=== PATIENT | male | born 1955 | race Caucasian/White ===

== ENCOUNTER 2017-06-02 16:45 | Observation (INO) | payer MEDICARE, MEDICAID ==
[2017-06-02 16:55] VITALS: BMI 26.8
--- NOTE | 2017-06-02 17:00 | C.PDOC ---
History Of Present Illness Patient is a 61 y/o M with hx of DM, HTN, cath yesterday at [place] where "I was cleaned out", presenting with weakness. Patient reports that at 1pm, he had 5 minutes of L sided arm weakness, L sided facial droop and aphasia. Symptoms resolved and he presented to ED at 4:45 approximately with no deficit. Complaining of chest pain. PMD: Mery Avalos Time Seen by Provider: 06/02/17 16:54 History Per: Patient History/Exam Limitations: no limitations Onset/Duration Of Symptoms: Hrs Current Symptoms Are (Timing): Still Present Past Medical History Reviewed: Historical Data, Nursing Documentation, Vital Signs Vital Signs: Last Vital Signs Temp 98.1 F 06/02/17 16:50 Pulse 87 06/02/17 19:56 Resp 16 06/02/17 19:56 BP 164/81 H 06/02/17 19:56 Pulse Ox 100 06/02/17 19:56 - Medical History PMH: Anemia, CAD, Diabetes, Gastritis, HTN, Hypothyroidism, Chronic Kidney Disease Surgical History: No Surg Hx Family History: States: No Known Family Hx - Social History Hx Tobacco Use: No Hx Alcohol Use: No Hx Substance Use: No - Immunization History Hx Influenza Vaccination: Yes Hx Pneumococcal Vaccination: Yes Review Of Systems Except As Marked, All Systems Reviewed And Found Negative. Cardiovascular: Positive for: Chest Pain Neurological: Positive for: Weakness (arm), Change in Speech (Aphasia), Other ( Left sided facial droop) Physical Exam - Physical Exam Appears: Well, Non-toxic Skin: Warm, Dry, No Rash Head: Atraumatic, Normacephalic Eye(s): bilateral: Normal Inspection (No nystagmus) Oral Mucosa: Moist Neck: Normal ROM, Supple Cardiovascular: Rhythm Regular Respiratory: Normal Breath Sounds, No Rales, No Rhonchi, No Wheezing Gastrointestinal/Abdominal: Soft, No Tenderness, No Guarding, No Rebound Extremity: Normal ROM, Capillary Refill (<2 seconds) Neurological/Psych: Oriented x3, Normal Cognition, Normal Cranial Nerves, Cerebellar Signs, Normal Motor, Normal Sensation Gait: Steady ED Course And Treatment - Laboratory Results Result Diagrams: 06/02/17 17:08 06/02/17 17:08 O2 Sat by Pulse Oximetry: 100 (RA) Pulse Ox Interpretation: Normal NIHSS Stroke Scale - Date/Time Evaluation Performed Date Performed: 06/02/17 Time Performed: 17:00 When Was NIHSS Performed: Baseline - How Severe is the Stroke Level of Consciousness: 0=Alert LOC to Questions: 0=Both comments correct LOC to commands: 0=Obeys both correctly Best Gaze: 0=Normal Visual: 0=No visual loss Facial: 0=Normal Motor Arm - Left: 0=No drift Motor Arm - Right: 0=No drift Motor Leg - Left: 0=No drift Motor Leg - Right: 0=No drift Limb Ataxia: 0=Absent Sensory: 0=Normal Best Language: 0=No aphasia Dysarthia: 0=Normal articulation Extinction & Inattention (Neglect): 1=Partial neglect (mild beatriz-attention) Score: 1 rTPA Inclusion/Exclusion - Refusal of Treatment Patient Refused Treatment: No - Inclusion Criteria for Altepase Patient is 18 years or Older: Yes The Clinical Diagnosis of Ischemic Stroke That is Causing a Potentially Disabling Neurological Deficit: No Time of Onset is Well Established to be Less Than 270 Minute Before Treatment Would Begin: No Risk/Benefit Discussed With Patient/Family Member Present: No Medical Decision Making Medical Decision Making: Patient neurologically intact on arrival. EKG shows NSR at 80bpm with st depressions in v4-v6. Code stroke called. Spoke to Dr. Pablo. Patient not a candidate due to no current deficit and length of time >3 hours since last known well time. Recommends aspirin. Agrees with cta @1812- Spoke to Dr. Pablo requesting Plavix and Aspirin to be given to patient and MRI in AM Spoke to hospitalist,. Dr. Hendrix and he is also requesting vq scan which was ordered. Lovenox x 1 given as VQ cannot be done till morning. Patient now chest pain free. Trop x 1 negative. Radiologist called and reports MRI shows lacunar infarct to R occipital measuring 5mm. Neurology aware. Disposition - Disposition Disposition: HOSPITALIZED Disposition Time: 18:14 Condition: FAIR - Clinical Impression Clinical Impression: Chest pain, TIA (transient ischemic attack), Stroke - Scribe Statement The provider has reviewed the documentation as recorded by the Scribe Karen Maciel All medical record entries made by the Scribe were at my direction and personally dictated by me. I have reviewed the chart and agree that the record accurately reflects my personal performance of the history, physical exam, medical decision making, and the department course for this patient. I have also personally directed, reviewed, and agree with the discharge instructions and disposition.
[2017-06-02] MEDS ORDERED: Iodixanol 320 MG/ML 100 ML BOTTLE IV ONE (17:03)
[2017-06-02 17:13] LABS: BASO % 0.3 % (0.0-2.0); EOS % 0.4 % (0.0-4.0); HEMOGLOBIN 12.1 g/dL (12.0-18.0); LYMPH # 0.6 K/uL (1.0-4.3); LYMPH % 10.2 % (20.0-40.0); MEAN CELL VOLUME 93.3 fL (80.0-94.0); MEAN CORPUSCULAR HEMOGLOBIN 31.4 pg (27.0-31.0); MEAN CORPUSCULAR HGB CONC 33.6 g/dL (33.0-37.0); MEAN PLATELET VOLUME 8.9 fL (7.2-11.7); MONO # 0.6 K/uL (0.0-0.8); MONO % 9.8 % (0.0-10.0); NEUT # 4.8 K/uL (1.8-7.0); NEUT % 79.3 % (50.0-75.0); NRBC % 0.1 % (0.0-2.0); RBC 3.87 Mil/uL (4.40-5.90); RED CELL DISTRIBUTION WIDTH 13.3 % (11.5-14.5); WHITE BLOOD COUNT 6.1 K/uL (4.8-10.8)
[2017-06-02 17:24] LABS: INR 1.1; PROTHROMBIN TIME 12.1 SECONDS (9.7-12.2)
--- NOTE | 2017-06-02 17:27 | CT ---
PROCEDURE: CT HEAD WITHOUT CONTRAST. HISTORY: Code Stroke COMPARISON: None available. TECHNIQUE: Axial computed tomography images were obtained through the head/brain without intravenous contrast. Radiation dose: Total exam DLP = 761.65 mGy-cm. This CT exam was performed using one or more of the following dose reduction techniques: Automated exposure control, adjustment of the mA and/or kV according to patient size, and/or use of iterative reconstruction technique. FINDINGS: HEMORRHAGE: No intracranial hemorrhage. BRAIN: No mass effect or edema. Cortical atrophy, periventricular small vessel disease. VENTRICLES: Unremarkable. No hydrocephalus. CALVARIUM: Unremarkable. PARANASAL SINUSES: Unremarkable as visualized. No significant inflammatory changes. MASTOID AIR CELLS: Unremarkable as visualized. No inflammatory changes. OTHER FINDINGS: None. IMPRESSION: No acute intracranial abnormalities. No significant findings to account for the clinical presentation. Code stroke protocol: Study completed 17:09 Results conveyed verbally at 17:23 Interpretation finalized and available for review 17:24
[2017-06-02 17:28] LABS: HDL CHOLESTEROL 45 mg/dL (30-70)
[2017-06-02 17:30] LABS: ALB/GLOB RATIO 1.4 (1.0-2.1); ALBUMIN 4.1 g/dL (3.5-5.0); CALCIUM 8.9 mg/dl (8.6-10.4)
[2017-06-02] MEDS: Sodium Chloride 0.9% 1,000 ML IV SCH (17:31)
[2017-06-02] MEDS ORDERED: Sodium Chloride 0.9% 1,000 ML ONE (17:31)
[2017-06-02 17:39] LABS: LDL CHOLESTEROL 80 mg/dL (0-129)
--- NOTE | 2017-06-02 18:02 | CT ---
PROCEDURE: CTA of the neck and brain dated 06/02/2017. HISTORY: Weakness and aphasia, left-side common CT yesterday. COMPARISON: Comparison made with concurrent CT scan of the brain. TECHNIQUE: Contiguous helical/transaxial images of the neck were obtained from the level of the skull-base to the superior mediastinum in the arteriographic phase of enhancement. Coronal and sagittal reformats or also generated. IV contrast dose: 100 cc Visipaque 320 Radiation Dose - DLP: 600.12 mGy-cm This CT exam was performed using one or more of the following dose reduction techniques: Automated exposure control, adjustment of the mA and/or kV according to patient size, and/or use of iterative reconstruction technique. . FINDINGS: The aortic arch is widely patent with some very minimal partially calcified plaque along the left lateral and inferior margins of the transverse portion of the aortic arch. The common carotid arteries and bifurcations widely patent with no evidence of dissection, occlusion or significant stenosis There is some very minor plaque changes seen along the proximal margin of the left internal carotid artery without significant stenosis. The remaining distal internal carotid arteries including the P2 segments widely patent. There are partially calcified atherosclerotic plaque changes seen along the cavernous carotid segments that appear to result in irregular narrowing carotid of the left cavernous carotid artery more so than right, however no evidence of complete occlusion The supraclinoid carotid arteries patent as are the proximal middle and anterior cerebral arteries. The distal on branches of the anterior middle cerebral arteries are relatively symmetric. The vertebral arteries are symmetric throughout with no evidence of occlusion dissection or significant stenosis. The basilar artery and posterior cerebral arteries are patent as well. . The proximal posterior cerebral arteries are patent. Note the visualized portions of the posterior cerebral arteries appear patent as well. No evidence of large aneurysm nor vascular malformation. IMPRESSION: No evidence of occlusion of the common carotid arteries, carotid bifurcations or internal carotid arteries. . Partially calcified atherosclerotic plaque changes both cavernous carotid arteries result in mild irregular narrowing of the left cavernous carotid artery more so than right. . The posterior circulation is also patent as described above. No evidence of large aneurysm nor vascular malformation.
--- NOTE | 2017-06-02 18:26 | RAD ---
HISTORY: Code Stroke COMPARISON: 12/25/2012 FINDINGS: LUNGS: No active pulmonary disease. PLEURA: No significant pleural effusion identified, no pneumothorax apparent. CARDIOVASCULAR: No radiographic findings to suggest acute or significant cardiovascular disease. OSSEOUS STRUCTURES: No significant abnormalities. VISUALIZED UPPER ABDOMEN: Normal. OTHER FINDINGS: None. IMPRESSION: No active disease. No significant interval change compared to the prior examination(s).
[2017-06-02] MEDS ORDERED: Enoxaparin 80 mg Syringe SC STA (19:10)
[2017-06-02] MEDS ORDERED: Enoxaparin 80 mg Syringe ONE (19:18)
--- NOTE | 2017-06-03 00:40 | CP.PCM.HP ---
<Maykel Cuevas - Last Filed: 06/03/17 04:03> History of Present Illness - History of Present Illness History of Present Illness: 61 year old male with history of DM, HTN, HLD, ESRD s/p left kidney transplant, and left eye blindness who presented to the ED for an episode of generalized numbness and weakness beginning earlier in the afternoon. He stated that at 1pm he developed a headache at the top and back of his head along with paresthesias in his bilateral arms and face. He described the sensation as feeling though his arms and face had "gone to sleep." He says he was able to walk at the time but that he felt unsteady and had some weakness in his legs. His sister then brought him to the hospital. He states that he became very anxious during this episode and felt he was "going crazy." He states that he experienced associated SOB and palpitations. He reported that all of this had resolved soon after he arrived at the hospital and that he was no longer experiencing any of these symptoms during questioning at bedside. Yesterday, he had a cardiac cath done through his R radial artery and R femoral artery. Patient was told that his coronaries were clean and no stents were placed. He experienced no complications and stated that he had gone home feeling well afterwards. He follows up with Dr. Boothe (Nephro) every 2 month. He denies paralysis, CP, cough, fever, chills, diarrhea, constipation, bowel and bladder incontinence, syncope. Indonesian video financial writer: Eladia Méndez [id number] PMD: Sera Avalos: Tl, Cardio: [facility] PMH: DM, HTN, HLD Surg: Left kidney transplant 4 years ago; eye surgery (unspecified) FMH: DM in brother (62 y/o); unspecified lung disease in mother (81 y/o) Social: Currently denies tobacco use though 40 years ago he reports to have smoked several cigarettes daily for several years; reports to drink 1-2 beers on Fridays and Saturdays; denies other drug use Allergies: NKDA Home meds: Unable to provide at this moment as he left his home in a hurry. Will have a family member to bring it in the morning Present on Admission - Present on Admission Any Indicators Present on Admission: No Review of Systems - Constitutional Constitutional: As Per HPI, Headache, Weakness. absent: Anorexia, Chills, Fatigue - EENT Eyes: As Per HPI. absent: Blind Spots, Discharge, Irritation Ears: As Per HPI. absent: Dizziness Nose/Mouth/Throat: As Per HPI. absent: Epistaxis, Nasal Obstruction, Nasal Trauma - Cardiovascular Cardiovascular: As Per HPI. absent: Chest Pain, Diaphoresis, Edema, Leg Edema - Respiratory Respiratory: As Per HPI. absent: Cough, Wheezing - Gastrointestinal Gastrointestinal: As Per HPI. absent: Abdominal Pain, Nausea, Vomiting - Genitourinary Genitourinary: As Per HPI. absent: Change in Urinary Stream, Dysuria - Musculoskeletal Musculoskeletal: As Per HPI. absent: Arthralgias, Deformity - Integumentary Integumentary: As Per HPI. absent: Acne, Alopecia - Neurological Neurological: As Per HPI, Numbness, Headaches. absent: Syncope - Psychiatric Psychiatric: As Per HPI, Anxiety - Endocrine Endocrine: As Per HPI. absent: Change in Body Appearance - Hematologic/Lymphatic Hematologic: As Per HPI Past Patient History - Past Medical History & Family History Past Medical History?: Yes - Past Social History Smoking Status: Former Smoker - CARDIAC Hx Hypertension: Yes - PULMONARY Hx Respiratory Disorders: No - NEUROLOGICAL Hx Neurological Disorder: No - HEENT Hx Blind: Yes (LEFT EYE DIABETIC RETINOPATHY) - RENAL Hx Chronic Kidney Disease: Yes - ENDOCRINE/METABOLIC Hx Hypothyroidism: Yes - HEMATOLOGICAL/ONCOLOGICAL Hx Anemia: Yes - INTEGUMENTARY Hx Dermatological Problems: No - MUSCULOSKELETAL/RHEUMATOLOGICAL Hx Musculoskeletal Disorders: No - GASTROINTESTINAL Hx Gastritis: Yes - GENITOURINARY/GYNECOLOGICAL Hx Genitourinary Disorders: No - PSYCHIATRIC Hx Substance Use: No - SURGICAL HISTORY Hx Surgeries: Yes Hx Kidney Transplant: Yes (04/01/13) Hx Vascular Surgery: Yes (LEFT ARM A/V FISTULA) - ANESTHESIA Hx Anesthesia: Yes Hx Anesthesia Reactions: No Hx Malignant Hyperthermia: No Meds Allergies/Adverse Reactions: Allergies Allergy/AdvReac Type Severity Reaction Status Date / Time No Known Allergies Allergy Verified 03/18/15 08:48 Physical Exam - Constitutional Appears: Non-toxic, No Acute Distress - Head Exam Head Exam: ATRAUMATIC, NORMOCEPHALIC - Eye Exam Eye Exam: Normal appearance, PERRL. absent: Nystagmus - ENT Exam ENT Exam: Mucous Membranes Moist - Neck Exam Neck exam: Positive for: Normal Inspection - Respiratory Exam Respiratory Exam: Clear to Auscultation Bilateral, NORMAL BREATHING PATTERN. absent: Wheezes, Respiratory Distress - Cardiovascular Exam Cardiovascular Exam: REGULAR RHYTHM, +S1, +S2 - GI/Abdominal Exam GI & Abdominal Exam: Normal Bowel Sounds, Soft. absent: Tenderness - Extremities Exam Extremities exam: Positive for: normal capillary refill, normal inspection, pedal pulses present Additional comments: Right wrist and right groin ecchymosis Left arm surgical scar from AVF - Neurological Exam Neurological exam: Alert, CN II-XII Intact, Oriented x3 Additional comments: NIHSS score 0 - Expanded Neurological Exam Expanded Patient oriented to: person, place, time - Psychiatric Exam Psychiatric exam: Normal Affect, Normal Mood - Skin Skin Exam: Dry, Warm Results - Vital Signs Recent Vital Signs: Last Vital Signs Temp 98.7 F 06/03/17 00:35 Pulse 82 06/03/17 00:35 Resp 18 06/03/17 00:35 BP 158/80 H 06/03/17 00:35 Pulse Ox 97 06/03/17 00:35 - Labs Result Diagrams: 06/02/17 17:08 06/02/17 17:08 Labs: Laboratory Results - last 24 hr 06/02/17 06/02/17 06/02/17 16:50 17:08 17:08 WBC 6.1 RBC 3.87 L Hgb 12.1 Hct 36.1 MCV 93.3 D MCH 31.4 H MCHC 33.6 RDW 13.3 Plt Count 164 MPV 8.9 Neut % (Auto) 79.3 H Lymph % (Auto) 10.2 L [place] % (Auto) 9.8 Eos % (Auto) 0.4 Baso % (Auto) 0.3 Neut # (Auto) 4.8 Lymph # (Auto) 0.6 L [place] # (Auto) 0.6 Eos # (Auto) 0.0 Baso # (Auto) 0.0 PT 12.1 INR 1.1 APTT 29 Sodium Potassium Chloride Carbon Dioxide Anion Gap BUN Creatinine Est GFR ( Amer) Est GFR (Non-Af Amer) POC Glucose (mg/dL) 115 H Random Glucose Hemoglobin A1c Calcium Total Bilirubin AST ALT Alkaline Phosphatase Troponin I Total Protein Albumin Globulin Albumin/Globulin Ratio Triglycerides Cholesterol LDL Cholesterol Direct HDL Cholesterol Blood Type Antibody Screen 04/19/18 04/19/18 04/19/18 17:08 17:08 17:08 WBC RBC Hgb Hct MCV MCH MCHC RDW Plt Count MPV Neut % (Auto) Lymph % (Auto) [place] % (Auto) Eos % (Auto) Baso % (Auto) Neut # (Auto) Lymph # (Auto) [place] # (Auto) Eos # (Auto) Baso # (Auto) PT INR APTT Sodium 139 Potassium 4.4 Chloride 100 Carbon Dioxide 24 Anion Gap 19 BUN 28 H Creatinine 1.9 H Est GFR ( Amer) 44 Est GFR (Non-Af Amer) 36 POC Glucose (mg/dL) Random Glucose 113 H Hemoglobin A1c Calcium 8.9 Total Bilirubin 0.5 AST 27 ALT 28 Alkaline Phosphatase 36 L Troponin I < 0.0120 Total Protein 7.0 Albumin 4.1 Globulin 2.9 Albumin/Globulin Ratio 1.4 Triglycerides 176 H Cholesterol 157 LDL Cholesterol Direct 80 HDL Cholesterol 45 Blood Type O POSITIVE Antibody Screen Negative 06/02/17 06/02/17 17:08 21:26 WBC RBC Hgb Hct MCV MCH MCHC RDW Plt Count MPV Neut % (Auto) Lymph % (Auto) [place] % (Auto) Eos % (Auto) Baso % (Auto) Neut # (Auto) Lymph # (Auto) [place] # (Auto) Eos # (Auto) Baso # (Auto) PT INR APTT Sodium Potassium Chloride Carbon Dioxide Anion Gap BUN Creatinine Est GFR ( Amer) Est GFR (Non-Af Amer) POC Glucose (mg/dL) 181 H Random Glucose Hemoglobin A1c 6.9 H Calcium Total Bilirubin AST ALT Alkaline Phosphatase Troponin I Total Protein Albumin Globulin Albumin/Globulin Ratio Triglycerides Cholesterol LDL Cholesterol Direct HDL Cholesterol Blood Type Antibody Screen Assessment & Plan - Assessment and Plan (Free Text) Assessment: TIA -No neurological deficits on exam -CT head shows no acute intracranial abnormalities -CTA of neck shows no evidence of occlusion of the common carotid arteries, carotid bifurcations or internal carotid arteries -Pending brain MRI official results -Troponin negative, repeat pending -EKG shows NSR @80bpm, no axis deviation, ST depression on V4 and V5, no previous EKG to compare. F/u AM EKG -Neurology consulted, Dr. Eaton help appreciated -Physical therapy ESRD s/p left kidney transplant -Patient follows up with Dr. Boothe every 2 months -Taking an immunosuppresive drug, need to confirm name/dosage -Nephrology consulted, Dr. 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 Lewis <Navid Lewis P - Last Filed: 06/03/17 06:36> Results - Vital Signs Recent Vital Signs: Last Vital Signs Temp 98.5 F 06/03/17 04:15 Pulse 82 06/03/17 04:15 Resp 20 06/03/17 04:15 BP 163/81 H 06/03/17 04:15 Pulse Ox 96 06/03/17 04:15 - Labs Result Diagrams: 06/03/17 05:55 06/02/17 17:08 Labs: Laboratory Results - last 24 hr 06/02/17 06/02/17 06/02/17 16:50 17:08 17:08 WBC 6.1 RBC 3.87 L Hgb 12.1 Hct 36.1 MCV 93.3 D MCH 31.4 H MCHC 33.6 RDW 13.3 Plt Count 164 MPV 8.9 Neut % (Auto) 79.3 H Lymph % (Auto) 10.2 L [place] % (Auto) 9.8 Eos % (Auto) 0.4 Baso % (Auto) 0.3 Neut # (Auto) 4.8 Lymph # (Auto) 0.6 L [place] # (Auto) 0.6 Eos # (Auto) 0.0 Baso # (Auto) 0.0 PT 12.1 INR 1.1 APTT 29 Sodium Potassium Chloride Carbon Dioxide Anion Gap BUN Creatinine Est GFR ( Amer) Est GFR (Non-Af Amer) POC Glucose (mg/dL) 115 H Random Glucose Hemoglobin A1c Calcium Total Bilirubin AST ALT Alkaline Phosphatase Troponin I Total Protein Albumin Globulin Albumin/Globulin Ratio Triglycerides Cholesterol LDL Cholesterol Direct HDL Cholesterol Blood Type Antibody Screen 06/02/17 06/02/17 06/02/17 17:08 17:08 17:08 WBC RBC Hgb Hct MCV MCH MCHC RDW Plt Count MPV Neut % (Auto) Lymph % (Auto) [place] % (Auto) Eos % (Auto) Baso % (Auto) Neut # (Auto) Lymph # (Auto) [place] # (Auto) Eos # (Auto) Baso # (Auto) PT INR APTT Sodium 139 Potassium 4.4 Chloride 100 Carbon Dioxide 24 Anion Gap 19 BUN 28 H Creatinine 1.9 H Est GFR ( Amer) 44 Est GFR (Non-Af Amer) 36 POC Glucose (mg/dL) Random Glucose 113 H Hemoglobin A1c Calcium 8.9 Total Bilirubin 0.5 AST 27 ALT 28 Alkaline Phosphatase 36 L Troponin I < 0.0120 Total Protein 7.0 Albumin 4.1 Globulin 2.9 Albumin/Globulin Ratio 1.4 Triglycerides 176 H Cholesterol 157 LDL Cholesterol Direct 80 HDL Cholesterol 45 Blood Type O POSITIVE Antibody Screen Negative 06/02/17 06/02/17 06/03/17 17:08 21:26 05:55 WBC 4.6 L RBC 3.89 L Hgb 12.4 Hct 36.1 MCV 93.0 MCH 31.9 H MCHC 34.3 RDW 13.3 Plt Count 151 MPV 9.4 Neut % (Auto) 68.1 Lymph % (Auto) 20.1 [place] % (Auto) 9.4 Eos % (Auto) 0.9 Baso % (Auto) 1.5 Neut # (Auto) 3.2 Lymph # (Auto) 0.9 L [place] # (Auto) 0.4 Eos # (Auto) 0.0 Baso # (Auto) 0.1 PT INR APTT Sodium Potassium Chloride Carbon Dioxide Anion Gap BUN Creatinine Est GFR ( Amer) Est GFR (Non-Af Amer) POC Glucose (mg/dL) 181 H Random Glucose Hemoglobin A1c 6.9 H Calcium Total Bilirubin AST ALT Alkaline Phosphatase Troponin I Total Protein Albumin Globulin Albumin/Globulin Ratio Triglycerides Cholesterol LDL Cholesterol Direct HDL Cholesterol Blood Type Antibody Screen Attending/Attestation - Attestation I have personally seen and examined this patient.: Yes I have fully participated in the care of the patient.: Yes I have reviewed all pertinent clinical information: Yes Notes (Text): Assessment * Patient at time of exam had no neurological symptoms or signs, no chest pain or sob. Events at home started as headache, facial numbness, anxiety, bilateral weakness in legs, which had resolved by the time in ER, unclear if neurologic pattern. Very small lacunar infarct mentioned on MRI in right occipital area will no cause the mentioned clinical symptoms. Possibility of small shower embolic not seen on CT or MRI, but completely resolved post cardiac cath (05/31) still a possibility. Patient has received CTA here. * Unclear initial events at [facility] for the cath, as done for purpose of CP, ? VT, seems 2 attempts done one in right radial other in right groin. * Patient has kid transplanted about 4 yrs on transplant meds, elevated creat noticed but don't have numbers to compare, current 1.[address] Boothe and Brenda Patel I for transplanted kidney * IDDM * Patient has received dual antiplatelet therapy, and anticoagulation Plan * Confirm his base line creat, records form [facility], Dr. Boothe, get report/records from [facility] regarding presentation/cath * IVF gentle, prevent dehydration, nephrotoxic drug patient has received radio contrast at [facility] and here * Get dosages of the meds. * Insulin lantus 22, humlog 11-23-09 (from ) *
--- NOTE | 2017-06-03 00:47 | CP.PCM.DIS ---
Provider - Provider Date of Admission: 06/02/17 18:15 Attending physician: Sabas Clements MD Hospital Course - Lab Results Lab Results: Most Recent Lab Values WBC 6.1 K/uL (4.8-10.8) 06/02/17 17:08 RBC 3.87 Mil/uL (4.40-5.90) L 06/02/17 17:08 Hgb 12.1 g/dL (12.0-18.0) 06/02/17 17:08 Hct 36.1 % (35.0-51.0) 06/02/17 17:08 MCV 93.3 fL (80.0-94.0) D 06/02/17 17:08 MCH 31.4 pg (27.0-31.0) H 06/02/17 17:08 MCHC 33.6 g/dL (33.0-37.0) 06/02/17 17:08 RDW 13.3 % (11.5-14.5) 06/02/17 17:08 Plt Count 164 K/uL (130-400) 06/02/17 17:08 MPV 8.9 fL (7.2-11.7) 06/02/17 17:08 Neut % (Auto) 79.3 % (50.0-75.0) H 06/02/17 17:08 Lymph % (Auto) 10.2 % (20.0-40.0) L 06/02/17 17:08 [place] % (Auto) 9.8 % (0.0-10.0) 06/02/17 17:08 Eos % (Auto) 0.4 % (0.0-4.0) 06/02/17 17:08 Baso % (Auto) 0.3 % (0.0-2.0) 06/02/17 17:08 Neut # (Auto) 4.8 K/uL (1.8-7.0) 06/02/17 17:08 Lymph # (Auto) 0.6 K/uL (1.0-4.3) L 06/02/17 17:08 [place] # (Auto) 0.6 K/uL (0.0-0.8) 06/02/17 17:08 Eos # (Auto) 0.0 K/uL (0.0-0.7) 06/02/17 17:08 Baso # (Auto) 0.0 K/uL (0.0-0.2) 06/02/17 17:08 PT 12.1 SECONDS (9.7-12.2) 06/02/17 17:08 INR 1.1 06/02/17 17:08 APTT 29 SECONDS (21-34) 06/02/17 17:08 Sodium 139 mmol/L (132-148) 06/02/17 17:08 Potassium 4.4 mmol/L (3.6-5.2) 06/02/17 17:08 Chloride 100 mmol/L (98-107) 06/02/17 17:08 Carbon Dioxide 24 mmol/L (22-30) 06/02/17 17:08 Anion Gap 19 (10-20) 06/02/17 17:08 BUN 28 mg/dL (9-20) H 06/02/17 17:08 Creatinine 1.9 mg/dL (0.8-1.5) H 06/02/17 17:08 Est GFR ( Amer) 44 06/02/17 17:08 Est GFR (Non-Af Amer) 36 06/02/17 17:08 POC Glucose (mg/dL) 181 mg/dL (65-110) H 06/02/17 21:26 Random Glucose 113 mg/dL (75-110) H 06/02/17 17:08 Hemoglobin A1c 6.9 % (4.2-6.5) H 06/02/17 17:08 Calcium 8.9 mg/dl (8.6-10.4) 06/02/17 17:08 Total Bilirubin 0.5 mg/dL (0.2-1.3) 06/02/17 17:08 AST 27 U/L (17-59) 06/02/17 17:08 ALT 28 U/L (21-72) 06/02/17 17:08 Alkaline Phosphatase 36 U/L (38-126) L 06/02/17 17:08 Troponin I < 0.0120 ng/mL (0.00-0.120) 06/02/17 17:08 Total Protein 7.0 g/dL (6.3-8.3) 06/02/17 17:08 Albumin 4.1 g/dL (3.5-5.0) 06/02/17 17:08 Globulin 2.9 gm/dL (2.2-3.9) 06/02/17 17:08 Albumin/Globulin Ratio 1.4 (1.0-2.1) 06/02/17 17:08 Triglycerides 176 mg/dL (0-149) H 06/02/17 17:08 Cholesterol 157 mg/dL (0-199) 06/02/17 17:08 LDL Cholesterol Direct 80 mg/dL (0-129) 06/02/17 17:08 HDL Cholesterol 45 mg/dL (30-70) 06/02/17 17:08 Blood Type O POSITIVE 06/02/17 17:08 Antibody Screen Negative 06/02/17 17:08 Discharge Plan - Follow Up Plan Condition: FAIR Disposition: HOME/ ROUTINE
[2017-06-03] MEDS: Sodium Chloride 0.9% 1,000 ML IV SCH ×2 (03:00→05:33)
[2017-06-03] MEDS ORDERED: Dextrose 50% SYRINGE Inj (50 ml) IVP PRN (04:39)
[2017-06-03] MEDS ORDERED: Glucagon Recombinant 1 mg Inj IM PRN (04:39)
[2017-06-03 06:02] LABS: BASO # 0.1 K/uL (0.0-0.2); BASO % 1.5 % (0.0-2.0); EOS % 0.9 % (0.0-4.0); HEMOGLOBIN 12.4 g/dL (12.0-18.0); LYMPH # 0.9 K/uL (1.0-4.3); LYMPH % 20.1 % (20.0-40.0); MEAN CORPUSCULAR HEMOGLOBIN 31.9 pg (27.0-31.0); MEAN CORPUSCULAR HGB CONC 34.3 g/dL (33.0-37.0); MEAN PLATELET VOLUME 9.4 fL (7.2-11.7); MONO # 0.4 K/uL (0.0-0.8); MONO % 9.4 % (0.0-10.0); NEUT # 3.2 K/uL (1.8-7.0); NEUT % 68.1 % (50.0-75.0); RBC 3.89 Mil/uL (4.40-5.90); RED CELL DISTRIBUTION WIDTH 13.3 % (11.5-14.5); WHITE BLOOD COUNT 4.6 K/uL (4.8-10.8)
[2017-06-03 06:25] LABS: CK-MB 1.38 ng/mL (0.0-3.38); TROPONIN I 0.015 ng/mL (0.00-0.120)
[2017-06-03 06:26] LABS: ALB/GLOB RATIO 1.3 (1.0-2.1); CALCIUM 8.9 mg/dl (8.6-10.4)
[2017-06-03] MEDS ORDERED: (Novolin R) Insulin Human Regular 100 units/ml vial SC SCH ×2 (07:30)
[2017-06-03] MEDS: (Novolin R) Insulin Human Regular 100 units/ml vial SC SCH ×4 (08:28→21:41)
--- NOTE | 2017-06-03 10:04 | NM ---
COMPARISON: June 02, 2017. TECHNIQUE: 6.1 mCi technetium 99-m Xe-133 Gas. 3.4 mCI technetium 99-m MAA administered intravenously. FINDINGS: VENTILATION COMPONENT: Normal. PERFUSION COMPONENT: Normal. IMPRESSION: Normal ventilation perfusion scan without evidence of pulmonary embolism.
--- NOTE | 2017-06-03 10:22 | MRI ---
PROCEDURE: MRI BRAIN WITHOUT CONTRAST HISTORY: TIA L sided weakness, now resolved COMPARISON: Comparison made with prior CT scan and CTA of the neck and brain cyst obtained earlier same day TECHNIQUE: Multiplanar, multisequence MR images of the brain were obtained without intravenous contrast enhancement. FINDINGS: HEMORRHAGE: No acute parenchymal, subarachnoid nor extra-axial hemorrhage. No evidence of hemosiderin deposition identified on gradient echo weighted sequence DWI: There is a tiny focal area of restricted diffusion in the right occipito parietal watershed zone consistent with a tiny acute infarct. BRAIN PARENCHYMA: Mild -moderate diffuse/ confluent chronic periventricular white matter ischemic changes with multiple more discrete chronic appearing lacunar type infarcts scattered about the deep and subcortical white matter as well as basal nuclei both cerebral hemispheres. Mild chronic brainstem ischemic changes are also present. No obvious parenchymal nor extra-axial mass or collection seen on this noncontrast study. Moderate generalized volume loss. VENTRICLES: No obstructive hydrocephalus. CRANIUM: No calvarial abnormalities ORBITS: Changes of bilateral cataract surgery. PARANASAL SINUSES/MASTOIDS: Mild mucosal thickening seen within the ethmoid air complex and sphenoid sinus. Small focal areas of polypoid like mucosal thickening also seen in both maxillary antra. VASCULAR SYSTEM: Visualized major vascular flow voids at skull base patent. OTHER FINDINGS: None. IMPRESSION: There is a tiny acute infarct changes in the right occipito parietal watershed zone. . Mild to moderate chronic white matter ischemic changes with scattered chronic bilateral basal nuclei and brainstem ischemic changes. . Moderate generalized volume loss
--- NOTE | 2017-06-03 11:02 | CP.PCM.CON ---
History of Present Illness - History of Present Illness History of Present Illness: 61 year old male with history of DM, HTN, HLD, ESRD s/p left kidney transplant, and left eye blindness who presented to the ED for an episode of generalized numbness and weakness beginning earlier in the afternoon. He stated that at 1pm he developed a headache at the top and back of his head along with paresthesias in his bilateral arms and face. He described the sensation as feeling though his arms and face had "gone to sleep." He says he was able to walk at the time but that he felt unsteady and had some weakness in his legs. His sister then brought him to the hospital. He states that he became very anxious during this episode and felt he was "going crazy." He states that he experienced associated SOB and palpitations. He reported that all of this had resolved soon after he arrived at the hospital and that he was no longer experiencing any of these symptoms during questioning at bedside. Yesterday, he had a cardiac cath done through his R radial artery and R femoral artery. Patient was told that his coronaries were clean and no stents were placed. He experienced no complications and stated that he had gone home feeling well afterwards. He follows up with Dr. Boothe (Nephro) every 2 month. He denies paralysis, CP, cough, fever, chills, diarrhea, constipation, bowel and bladder incontinence, syncope. MRI head showed acute cva PMD: [facility]: Tl, Cardio: [facility] PMH: DM, HTN, HLD Surg: Left kidney transplant 4 years ago; eye surgery (unspecified) FMH: DM in brother (62 y/o); unspecified lung disease in mother (81 y/o) Social: Currently denies tobacco use though 40 years ago he reports to have smoked several cigarettes daily for several years; reports to drink 1-2 beers on Fridays and Saturdays; denies other drug use Allergies: NKDA Home meds: reviewed Review of Systems - Review of Systems Systems not reviewed;Unavailable: Acuity of Condition All systems: reviewed and no additional remarkable complaints except (as per HPI ) Past Patient History - Past Medical History & Family History Past Medical History?: Yes - Past Social History Smoking Status: Former Smoker - CARDIAC Hx Hypertension: Yes - PULMONARY Hx Respiratory Disorders: No - NEUROLOGICAL Hx Neurological Disorder: No - HEENT Hx Blind: Yes (LEFT EYE DIABETIC RETINOPATHY) - RENAL Hx Chronic Kidney Disease: Yes - ENDOCRINE/METABOLIC Hx Hypothyroidism: Yes - HEMATOLOGICAL/ONCOLOGICAL Hx Anemia: Yes - INTEGUMENTARY Hx Dermatological Problems: No - MUSCULOSKELETAL/RHEUMATOLOGICAL Hx Musculoskeletal Disorders: No - GASTROINTESTINAL Hx Gastritis: Yes - GENITOURINARY/GYNECOLOGICAL Hx Genitourinary Disorders: No - PSYCHIATRIC Hx Substance Use: No - SURGICAL HISTORY Hx Surgeries: Yes Hx Kidney Transplant: Yes (04/01/13) Hx Vascular Surgery: Yes (LEFT ARM A/V FISTULA) - ANESTHESIA Hx Anesthesia: Yes Hx Anesthesia Reactions: No Hx Malignant Hyperthermia: No Meds Allergies/Adverse Reactions: Allergies Allergy/AdvReac Type Severity Reaction Status Date / Time No Known Allergies Allergy Verified 03/18/15 08:48 - Medications Medications: Current Medications Aspirin (Aspirin Chewable) 81 mg PO DAILY [facility] Last Admin: 06/03/17 10:34 Dose: 81 mg Clopidogrel Bisulfate (Plavix) 75 mg PO DAILY [facility] Last Admin: 06/03/17 10:34 Dose: 75 mg Dextrose (Dextrose 50% Inj) 0 ml IVP .STAT PRN; Protocol PRN Reason: Hypoglycemia Protocol Dextrose (Glutose 15) 0 gm PO .ONCE PRN; Protocol PRN Reason: Hypoglycemia Protocol Famotidine (Pepcid) 20 mg PO DAILY [facility] Last Admin: 06/03/17 10:34 Dose: 20 mg Glucagon (Glucagen Diagnostic Kit) 0 mg IM .STAT PRN; Protocol PRN Reason: Hypoglycemia Protocol Sodium Chloride (Sodium Chloride 0.9%) 1,000 mls @ 100 mls/hr IV .Q10H [facility] Last Admin: 06/03/17 05:33 Dose: 100 mls/hr Dextrose (Dextrose 5% In Water 1000 Ml) 1,000 mls @ 0 mls/hr IV .Q0M PRN; Protocol; Per Protocol PRN Reason: Hypoglycemia Protocol Insulin Human Regular (Novolin R) 0 unit SC ACHS [facility] PRN Reason: Protocol Last Admin: 06/03/17 08:28 Dose: 2 unit Insulin Human Regular (Novolin R) 14 unit SC AC [facility] Last Admin: 06/03/17 08:27 Dose: 14 unit Rosuvastatin Calcium (Crestor) 5 mg PO HS [facility] Physical Exam - Constitutional Appears: Non-toxic, No Acute Distress - Head Exam Head Exam: NORMAL INSPECTION, NORMOCEPHALIC - Eye Exam Eye Exam: EOMI, Normal appearance - ENT Exam ENT Exam: Mucous Membranes Moist, Normal Exam, TM's Normal Bilaterally - Neck Exam Neck exam: Positive for: Normal Inspection - Respiratory Exam Respiratory Exam: Clear to Auscultation Bilateral, NORMAL BREATHING PATTERN - Cardiovascular Exam Cardiovascular Exam: REGULAR RHYTHM, RRR - GI/Abdominal Exam GI & Abdominal Exam: Distended (no tenderness over transplant kidney), Normal Bowel Sounds, Soft - Extremities Exam Extremities exam: Positive for: full ROM, normal inspection - Neurological Exam Neurological exam: Alert, Normal Gait, Oriented x3 - Psychiatric Exam Psychiatric exam: Normal Affect, Normal Mood - Skin Skin Exam: Intact, Normal Color, Warm Results - Vital Signs Recent Vital Signs: Last Vital Signs Temp 98.2 F 06/03/17 07:40 Pulse 80 06/03/17 08:07 Resp 18 06/03/17 07:40 BP 162/77 H 06/03/17 07:40 Pulse Ox 96 06/03/17 07:40 - Labs Result Diagrams: 06/03/17 05:55 06/03/17 05:55 Labs: Laboratory Results - last 24 hr 06/02/17 06/02/17 06/02/17 16:50 17:08 17:08 WBC 6.1 RBC 3.87 L Hgb 12.1 Hct 36.1 MCV 93.3 D MCH 31.4 H MCHC 33.6 RDW 13.3 Plt Count 164 MPV 8.9 Neut % (Auto) 79.3 H Lymph % (Auto) 10.2 L [place] % (Auto) 9.8 Eos % (Auto) 0.4 Baso % (Auto) 0.3 Neut # (Auto) 4.8 Lymph # (Auto) 0.6 L [place] # (Auto) 0.6 Eos # (Auto) 0.0 Baso # (Auto) 0.0 PT 12.1 INR 1.1 APTT 29 Sodium Potassium Chloride Carbon Dioxide Anion Gap BUN Creatinine Est GFR ( Amer) Est GFR (Non-Af Amer) POC Glucose (mg/dL) 115 H Random Glucose Hemoglobin A1c Calcium Total Bilirubin AST ALT Alkaline Phosphatase Total Creatine Kinase CK-MB (Mass) Troponin I Total Protein Albumin Globulin Albumin/Globulin Ratio Triglycerides Cholesterol LDL Cholesterol Direct HDL Cholesterol Blood Type Antibody Screen 06/02/17 06/02/17 06/02/17 17:08 17:08 17:08 WBC RBC Hgb Hct MCV MCH MCHC RDW Plt Count MPV Neut % (Auto) Lymph % (Auto) [place] % (Auto) Eos % (Auto) Baso % (Auto) Neut # (Auto) Lymph # (Auto) [place] # (Auto) Eos # (Auto) Baso # (Auto) PT INR APTT Sodium 139 Potassium 4.4 Chloride 100 Carbon Dioxide 24 Anion Gap 19 BUN 28 H Creatinine 1.9 H Est GFR ( Amer) 44 Est GFR (Non-Af Amer) 36 POC Glucose (mg/dL) Random Glucose 113 H Hemoglobin A1c Calcium 8.9 Total Bilirubin 0.5 AST 27 ALT 28 Alkaline Phosphatase 36 L Total Creatine Kinase CK-MB (Mass) Troponin I < 0.0120 Total Protein 7.0 Albumin 4.1 Globulin 2.9 Albumin/Globulin Ratio 1.4 Triglycerides 176 H Cholesterol 157 LDL Cholesterol Direct 80 HDL Cholesterol 45 Blood Type O POSITIVE Antibody Screen Negative 06/02/17 06/02/17 06/03/17 17:08 21:26 05:55 WBC 4.6 L RBC 3.89 L Hgb 12.4 Hct 36.1 MCV 93.0 MCH 31.9 H MCHC 34.3 RDW 13.3 Plt Count 151 MPV 9.4 Neut % (Auto) 68.1 Lymph % (Auto) 20.1 [place] % (Auto) 9.4 Eos % (Auto) 0.9 Baso % (Auto) 1.5 Neut # (Auto) 3.2 Lymph # (Auto) 0.9 L [place] # (Auto) 0.4 Eos # (Auto) 0.0 Baso # (Auto) 0.1 PT INR APTT Sodium Potassium Chloride Carbon Dioxide Anion Gap BUN Creatinine Est GFR ( Amer) Est GFR (Non-Af Amer) POC Glucose (mg/dL) 181 H Random Glucose Hemoglobin A1c 6.9 H Calcium Total Bilirubin AST ALT Alkaline Phosphatase Total Creatine Kinase CK-MB (Mass) Troponin I Total Protein Albumin Globulin Albumin/Globulin Ratio Triglycerides Cholesterol LDL Cholesterol Direct HDL Cholesterol Blood Type Antibody Screen 06/03/17 06/03/17 05:55 06:35 WBC RBC Hgb Hct MCV MCH MCHC RDW Plt Count MPV Neut % (Auto) Lymph % (Auto) [place] % (Auto) Eos % (Auto) Baso % (Auto) Neut # (Auto) Lymph # (Auto) [place] # (Auto) Eos # (Auto) Baso # (Auto) PT INR APTT Sodium 139 Potassium 4.0 Chloride 103 Carbon Dioxide 23 Anion Gap 17 BUN 22 H Creatinine 1.7 H Est GFR ( Amer) 50 Est GFR (Non-Af Amer) 41 POC Glucose (mg/dL) 192 H Random Glucose 209 H Hemoglobin A1c Calcium 8.9 Total Bilirubin 0.5 AST 24 ALT 27 Alkaline Phosphatase 47 Total Creatine Kinase 194 H CK-MB (Mass) 1.38 Troponin I 0.0150 Total Protein 6.9 Albumin 4.0 Globulin 3.0 Albumin/Globulin Ratio 1.3 Triglycerides Cholesterol LDL Cholesterol Direct HDL Cholesterol Blood Type Antibody Screen Assessment & Plan (1) Hypertension Status: Acute (2) Kidney transplant recipient Status: Acute (3) CKD (chronic kidney disease) stage 3, GFR 30-59 ml/min Status: Acute (4) Stroke Status: Acute (5) Diabetes Status: Acute - Assessment and Plan (Free Text) Assessment: -creatinine at baseline, at risk for contrast nephropathy -maintain gentle iv fluids -restart home prograf myfortic and prednisone dm management per primary neuro eval, pt ot permissive hypertension per neurology. daily chems
--- NOTE | 2017-06-03 12:08 | CP.PCM.PN ---
Subjective - Date & Time of Evaluation Date of Evaluation: 06/03/17 Time of Evaluation: 12:05 - Subjective Subjective: Patient seen and examined at bedside Complaining of some chest pain today in the middle of his chest substernal. No associated SOB or diaphoresis. Denies blurry vision, numbness or tingling. No other complaints at this time Objective - Vital Signs/Intake and Output Vital Signs (last 24 hours): Temp Pulse Resp BP Pulse Ox 98.2 F 80 18 162/77 H 96 06/03/17 07:40 06/03/17 08:07 06/03/17 07:40 06/03/17 07:40 06/03/17 07:40 Intake and Output: 06/03/17 06/03/17 06:59 18:59 Intake Total 1000 Balance 1000 - Medications Medications: Current Medications Aspirin (Aspirin Chewable) 81 mg PO DAILY [facility] Last Admin: 06/03/17 10:34 Dose: 81 mg Clopidogrel Bisulfate (Plavix) 75 mg PO DAILY [facility] Last Admin: 06/03/17 10:34 Dose: 75 mg Dextrose (Dextrose 50% Inj) 0 ml IVP .STAT PRN; Protocol PRN Reason: Hypoglycemia Protocol Dextrose (Glutose 15) 0 gm PO .ONCE PRN; Protocol PRN Reason: Hypoglycemia Protocol Famotidine (Pepcid) 20 mg PO DAILY [facility] Last Admin: 06/03/17 10:34 Dose: 20 mg Glucagon (Glucagen Diagnostic Kit) 0 mg IM .STAT PRN; Protocol PRN Reason: Hypoglycemia Protocol Dextrose (Dextrose 5% In Water 1000 Ml) 1,000 mls @ 0 mls/hr IV .Q0M PRN; Protocol; Per Protocol PRN Reason: Hypoglycemia Protocol Sodium Chloride (Sodium Chloride 0.45%) 1,000 mls @ 60 mls/hr IV .[id number] [facility] Insulin Human Regular (Novolin R) 0 unit SC ACHS [facility] PRN Reason: Protocol Last Admin: 06/03/17 08:28 Dose: 2 unit Insulin Human Regular (Novolin R) 14 unit SC AC [facility] Last Admin: 06/03/17 08:27 Dose: 14 unit Mycophenolate Mofetil (Cellcept) 500 mg PO BID [facility] Prednisone (Prednisone Tab) 5 mg PO DAILY [facility] Rosuvastatin Calcium (Crestor) 5 mg PO HS [facility] Tacrolimus (Prograf Cap) 2 mg PO DAILY [facility] Tacrolimus (Prograf Cap) 1 mg PO HS [facility] - Labs Labs: 06/03/17 05:55 06/03/17 05:55 PT 12.1 SECONDS (9.7-12.2) 06/02/17 17:08 INR 1.1 06/02/17 17:08 APTT 29 SECONDS (21-34) 06/02/17 17:08 - Constitutional Appears: Well - Head Exam Head Exam: ATRAUMATIC, NORMAL INSPECTION, NORMOCEPHALIC - Eye Exam Eye Exam: EOMI, Normal appearance, PERRL Pupil Exam: NORMAL ACCOMODATION, PERRL - ENT Exam ENT Exam: Mucous Membranes Moist, Normal Exam - Neck Exam Neck Exam: Full ROM, Normal Inspection. absent: Lymphadenopathy - Respiratory Exam Respiratory Exam: Clear to Ausculation Bilateral, NORMAL BREATHING PATTERN - Cardiovascular Exam Cardiovascular Exam: REGULAR RHYTHM, +S1, +S2. absent: Murmur - GI/Abdominal Exam GI & Abdominal Exam: Soft, Normal Bowel Sounds. absent: Tenderness - Extremities Exam Extremities Exam: Full ROM, Normal Capillary Refill, Normal Inspection. absent : Joint Swelling, Pedal Edema - Back Exam Back Exam: NORMAL INSPECTION - Neurological Exam Neurological Exam: Alert, Awake, CN II-XII Intact, Normal Gait, Oriented x3 - Psychiatric Exam Psychiatric exam: Normal Affect, Normal Mood - Skin Skin Exam: Dry, Intact, Normal Color, Warm Assessment and Plan (1) Stroke Assessment & Plan: initial head CT negative CTA: mild irregular narrowing of L. cavernous carotid a. Brain MRI: acute infarct in R. occipital parietal watershed zone Vq scan: no evidence of PE f/u carotid doppler F/U Echo permissive HTN ASA 81 PO QD Plavix 75 PO QD Crestor 5mg PO HS No BB as permissive HTN should be allowed No acei as permissive HTN should be allowed Neuro (Fina) ok with d/c and follow up in her office in 2 weeks Status: Acute (2) Kidney transplant recipient Assessment & Plan: Nephro ([place]) NS @ 60 mycophenolate prednisone tacrolimus Status: Acute (3) Chest pain Assessment & Plan: had cardiac cath at [place] on 05/31 echo at that time showed normal EF Stress test abnormal [place] reports in chart waiting for cardiac cath report. trops slowly rising but still negative at this time, continue to trend trops Q4 and ekgs make sure trops trending down before d/c Cards ([place]) Status: Acute (4) Prophylactic measure Assessment & Plan: Lovenox 40 SC QD GI PPX not indicated SCD PT/OT Status: Acute
[2017-06-03] MEDS: Sodium Chloride 0.45% 1,000 ML IV SCH (12:30)
[2017-06-03 12:51] LABS: CK-MB 1.52 ng/mL (0.0-3.38); TROPONIN I 0.019 ng/mL (0.00-0.120)
--- NOTE | 2017-06-03 15:11 | CP.PCM.CON ---
History of Present Illness - History of Present Illness History of Present Illness: 62 yr old male, with pmh of DM, HTN, HLD, ESRD s/p left kidney transpant, with chronic left eye blindness, who presents to the Er with a spell of generalized numbness and weaknes that started yesterday afternoon. This was accompanied with headache that was located occipitally, no nausea or vomiting noted, with SOB and palpitations. As soon as he presented to the hospital, these symptoms resolved. MRI Brain however, showed that he had a small right occipital stroke, with dwi ischemic small changes. PMH/PSH: as above. FH/SH: Dm in brother, lung disease in mother. All: nkda. on exam: Normal neurolgical exam. AAOX3.Patient is blind in left eye, no facial asymmetry. Cn 2-12 normal. motor exam normal, sensory exam normal. gait not tested. +2 dtr ul and ll bl. Toes downgoing no clonus. Past Patient History - Past Medical History & Family History Past Medical History?: Yes - Past Social History Smoking Status: Former Smoker - CARDIAC Hx Hypercholesterolemia: Yes Hx Hypertension: Yes - PULMONARY Hx Respiratory Disorders: No - NEUROLOGICAL Hx Neurological Disorder: No - HEENT Hx Blind: Yes (LEFT EYE DIABETIC RETINOPATHY) - RENAL Hx Chronic Kidney Disease: Yes - ENDOCRINE/METABOLIC Hx Diabetes Mellitus Type 2: Yes - HEMATOLOGICAL/ONCOLOGICAL Hx Anemia: Yes - INTEGUMENTARY Hx Dermatological Problems: No - MUSCULOSKELETAL/RHEUMATOLOGICAL Hx Musculoskeletal Disorders: No - GASTROINTESTINAL Hx Gastritis: Yes - GENITOURINARY/GYNECOLOGICAL Hx Genitourinary Disorders: No - PSYCHIATRIC Hx Substance Use: No - SURGICAL HISTORY Hx Surgeries: Yes Hx Kidney Transplant: Yes (04/01/13) Hx Vascular Surgery: Yes (LEFT ARM A/V FISTULA) - ANESTHESIA Hx Anesthesia: Yes Hx Anesthesia Reactions: No Hx Malignant Hyperthermia: No Meds Home Medications: Home Medication List Medication Instructions Recorded Confirmed Type Atorvastatin [Lipitor] 20 mg PO HS #30 tab 06/04/17 Rx Clopidogrel [Plavix] 75 mg PO DAILY #30 tab 06/04/17 Rx Lisinopril [Zestril] 20 mg PO DAILY #30 tablet 06/04/17 Rx Allergies/Adverse Reactions: Allergies Allergy/AdvReac Type Severity Reaction Status Date / Time No Known Allergies Allergy Verified 03/18/15 08:48 - Medications Medications: Current Medications Aspirin (Aspirin Chewable) 81 mg PO DAILY [facility] Last Admin: 06/03/17 10:34 Dose: 81 mg Clopidogrel Bisulfate (Plavix) 75 mg PO DAILY [facility] Last Admin: 06/03/17 10:34 Dose: 75 mg Enoxaparin Sodium (Lovenox) 40 mg SC DAILY [facility] Dextrose (Dextrose 5% In Water 1000 Ml) 1,000 mls @ 0 mls/hr IV .Q0M PRN; Protocol; Per Protocol PRN Reason: Hypoglycemia Protocol Sodium Chloride (Sodium Chloride 0.45%) 1,000 mls @ 60 mls/hr IV .[id number] [facility] Last Admin: 06/03/17 12:30 Dose: 60 mls/hr Insulin Human Regular (Novolin R) 0 unit SC ACHS [facility] PRN Reason: Protocol Last Admin: 06/03/17 12:30 Dose: Not Given Mycophenolate Mofetil (Cellcept) 500 mg PO BID [facility] Last Admin: 06/03/17 13:46 Dose: 500 mg Prednisone (Prednisone Tab) 5 mg PO DAILY [facility] Last Admin: 06/03/17 12:34 Dose: 5 mg Rosuvastatin Calcium (Crestor) 5 mg PO HS [facility] Tacrolimus (Prograf Cap) 2 mg PO DAILY [facility] Last Admin: 06/03/17 14:01 Dose: 2 mg Tacrolimus (Prograf Cap) 1 mg PO HS [facility] Results - Vital Signs Recent Vital Signs: Last Vital Signs Temp 98.2 F 06/03/17 07:40 Pulse 80 06/03/17 08:07 Resp 18 06/03/17 07:40 BP 162/77 H 06/03/17 07:40 Pulse Ox 96 06/03/17 07:40 - Labs Result Diagrams: 06/04/17 06:30 06/04/17 06:30 Labs: Laboratory Results - last 24 hr 06/02/17 06/02/17 06/02/17 16:50 17:08 17:08 WBC 6.1 RBC 3.87 L Hgb 12.1 Hct 36.1 MCV 93.3 D MCH 31.4 H MCHC 33.6 RDW 13.3 Plt Count 164 MPV 8.9 Neut % (Auto) 79.3 H Lymph % (Auto) 10.2 L [place] % (Auto) 9.8 Eos % (Auto) 0.4 Baso % (Auto) 0.3 Neut # (Auto) 4.8 Lymph # (Auto) 0.6 L [place] # (Auto) 0.6 Eos # (Auto) 0.0 Baso # (Auto) 0.0 PT 12.1 INR 1.1 APTT 29 Sodium Potassium Chloride Carbon Dioxide Anion Gap BUN Creatinine Est GFR ( Amer) Est GFR (Non-Af Amer) POC Glucose (mg/dL) 115 H Random Glucose Hemoglobin A1c Calcium Total Bilirubin AST ALT Alkaline Phosphatase Total Creatine Kinase CK-MB (Mass) Troponin I Total Protein Albumin Globulin Albumin/Globulin Ratio Triglycerides Cholesterol LDL Cholesterol Direct HDL Cholesterol Blood Type Antibody Screen 06/02/17 06/02/17 06/02/17 17:08 17:08 17:08 WBC RBC Hgb Hct MCV MCH MCHC RDW Plt Count MPV Neut % (Auto) Lymph % (Auto) [place] % (Auto) Eos % (Auto) Baso % (Auto) Neut # (Auto) Lymph # (Auto) [place] # (Auto) Eos # (Auto) Baso # (Auto) PT INR APTT Sodium 139 Potassium 4.4 Chloride 100 Carbon Dioxide 24 Anion Gap 19 BUN 28 H Creatinine 1.9 H Est GFR ( Amer) 44 Est GFR (Non-Af Amer) 36 POC Glucose (mg/dL) Random Glucose 113 H Hemoglobin A1c Calcium 8.9 Total Bilirubin 0.5 AST 27 ALT 28 Alkaline Phosphatase 36 L Total Creatine Kinase CK-MB (Mass) Troponin I < 0.0120 Total Protein 7.0 Albumin 4.1 Globulin 2.9 Albumin/Globulin Ratio 1.4 Triglycerides 176 H Cholesterol 157 LDL Cholesterol Direct 80 HDL Cholesterol 45 Blood Type O POSITIVE Antibody Screen Negative 06/02/17 06/02/17 06/03/17 17:08 21:26 05:55 WBC 4.6 L RBC 3.89 L Hgb 12.4 Hct 36.1 MCV 93.0 MCH 31.9 H MCHC 34.3 RDW 13.3 Plt Count 151 MPV 9.4 Neut % (Auto) 68.1 Lymph % (Auto) 20.1 [place] % (Auto) 9.4 Eos % (Auto) 0.9 Baso % (Auto) 1.5 Neut # (Auto) 3.2 Lymph # (Auto) 0.9 L [place] # (Auto) 0.4 Eos # (Auto) 0.0 Baso # (Auto) 0.1 PT INR APTT Sodium Potassium Chloride Carbon Dioxide Anion Gap BUN Creatinine Est GFR ( Amer) Est GFR (Non-Af Amer) POC Glucose (mg/dL) 181 H Random Glucose Hemoglobin A1c 6.9 H Calcium Total Bilirubin AST ALT Alkaline Phosphatase Total Creatine Kinase CK-MB (Mass) Troponin I Total Protein Albumin Globulin Albumin/Globulin Ratio Triglycerides Cholesterol LDL Cholesterol Direct HDL Cholesterol Blood Type Antibody Screen 06/03/17 06/03/17 06/03/17 05:55 06:35 11:53 WBC RBC Hgb Hct MCV MCH MCHC RDW Plt Count MPV Neut % (Auto) Lymph % (Auto) [place] % (Auto) Eos % (Auto) Baso % (Auto) Neut # (Auto) Lymph # (Auto) [place] # (Auto) Eos # (Auto) Baso # (Auto) PT INR APTT Sodium 139 Potassium 4.0 Chloride 103 Carbon Dioxide 23 Anion Gap 17 BUN 22 H Creatinine 1.7 H Est GFR ( Amer) 50 Est GFR (Non-Af Amer) 41 POC Glucose (mg/dL) 192 H 131 H Random Glucose 209 H Hemoglobin A1c Calcium 8.9 Total Bilirubin 0.5 AST 24 ALT 27 Alkaline Phosphatase 47 Total Creatine Kinase 194 H CK-MB (Mass) 1.38 Troponin I 0.0150 Total Protein 6.9 Albumin 4.0 Globulin 3.0 Albumin/Globulin Ratio 1.3 Triglycerides Cholesterol LDL Cholesterol Direct HDL Cholesterol Blood Type Antibody Screen 06/03/17 12:11 WBC RBC Hgb Hct MCV MCH MCHC RDW Plt Count MPV Neut % (Auto) Lymph % (Auto) [place] % (Auto) Eos % (Auto) Baso % (Auto) Neut # (Auto) Lymph # (Auto) [place] # (Auto) Eos # (Auto) Baso # (Auto) PT INR APTT Sodium Potassium Chloride Carbon Dioxide Anion Gap BUN Creatinine Est GFR ( Amer) Est GFR (Non-Af Amer) POC Glucose (mg/dL) Random Glucose Hemoglobin A1c Calcium Total Bilirubin AST ALT Alkaline Phosphatase Total Creatine Kinase 187 H CK-MB (Mass) 1.52 Troponin I 0.0190 Total Protein Albumin Globulin Albumin/Globulin Ratio Triglycerides Cholesterol LDL Cholesterol Direct HDL Cholesterol Blood Type Antibody Screen Assessment & Plan - Assessment and Plan (Free Text) Assessment: 62yr old male with new small right occipital stroke, ischemic in nature. Plan: 1. Stroke workup: ECHO CTA Lipid profile Please keep bp elevated at about 180-90/90 pt/st/ot 2.aspirin 325 mg po daily. thank you dr mendez - Date & Time Date: 06/03/17
[2017-06-03 16:36] VITALS: RESP 20
[2017-06-03 17:15] LABS: CK-MB 1.56 ng/mL (0.0-3.38); TROPONIN I 0.021 ng/mL (0.00-0.120)
[2017-06-03] MEDS: Enoxaparin 40 mg Syringe SC SCH (19:36)
[2017-06-03 20:41] LABS: CK-MB 1.46 ng/mL (0.0-3.38); TROPONIN I 0.016 ng/mL (0.00-0.120)
[2017-06-03 23:23] LABS: CK-MB 1.42 ng/mL (0.0-3.38); TROPONIN I 0.019 ng/mL (0.00-0.120)
[2017-06-04] MEDS: Sodium Chloride 0.45% 1,000 ML IV SCH (04:10)
[2017-06-04 06:39] LABS: BASO % 0.8 % (0.0-2.0); EOS # 0.1 K/uL (0.0-0.7); HEMOGLOBIN 13.3 g/dL (12.0-18.0); LYMPH # 0.8 K/uL (1.0-4.3); LYMPH % 19.7 % (20.0-40.0); MEAN CELL VOLUME 92.4 fL (80.0-94.0); MEAN CORPUSCULAR HEMOGLOBIN 31.6 pg (27.0-31.0); MEAN CORPUSCULAR HGB CONC 34.2 g/dL (33.0-37.0); MEAN PLATELET VOLUME 8.9 fL (7.2-11.7); MONO # 0.5 K/uL (0.0-0.8); MONO % 12.7 % (0.0-10.0); NEUT # 2.5 K/uL (1.8-7.0); NEUT % 64.8 % (50.0-75.0); RBC 4.21 Mil/uL (4.40-5.90); RED CELL DISTRIBUTION WIDTH 13.3 % (11.5-14.5); WHITE BLOOD COUNT 3.8 K/uL (4.8-10.8)
[2017-06-04 07:07] LABS: TROPONIN I 0.024 ng/mL (0.00-0.120)
[2017-06-04 07:09] LABS: ALB/GLOB RATIO 1.4 (1.0-2.1); ALBUMIN 4.2 g/dL (3.5-5.0); CALCIUM 9.7 mg/dl (8.6-10.4)
[2017-06-04] MEDS: (Novolin R) Insulin Human Regular 100 units/ml vial SC SCH ×2 (08:30→13:14)
--- NOTE | 2017-06-04 09:23 | CP.PCM.PN ---
Subjective - Date & Time of Evaluation Date of Evaluation: 06/04/17 Time of Evaluation: 09:20 - Subjective Subjective: afebrile bp stable creatinine unchanged at 1.5 up walking in room ROS no headache,dizziness no chest pain sob no abd pain n,v,d no dysuria,hematuria,pain over graft Objective - Vital Signs/Intake and Output Vital Signs (last 24 hours): Temp Pulse Resp BP Pulse Ox 98 F 77 20 180/90 H 98 06/04/17 07:00 06/04/17 07:00 06/04/17 07:00 06/04/17 07:00 06/04/17 07:00 Intake and Output: 06/04/17 06/04/17 06:59 18:59 Intake Total 960 800 Output Total 1400 Balance -440 800 - Medications Medications: Current Medications Aspirin (Aspirin Chewable) 81 mg PO DAILY [facility] Last Admin: 06/03/17 10:34 Dose: 81 mg Clopidogrel Bisulfate (Plavix) 75 mg PO DAILY [facility] Last Admin: 06/03/17 10:34 Dose: 75 mg Enoxaparin Sodium (Lovenox) 40 mg SC DAILY [facility] Last Admin: 06/03/17 19:36 Dose: 40 mg Sodium Chloride (Sodium Chloride 0.45%) 1,000 mls @ 60 mls/hr IV .[id number] [facility] Last Admin: 06/04/17 04:10 Dose: Not Given Insulin Human Regular (Novolin R) 0 unit SC [facility] PRN Reason: Protocol Last Admin: 06/04/17 08:30 Dose: 2 unit Mycophenolate Mofetil (Cellcept) 500 mg PO BID [facility] Last Admin: 06/03/17 22:21 Dose: 500 mg Prednisone (Prednisone Tab) 5 mg PO DAILY [facility] Last Admin: 06/03/17 12:34 Dose: 5 mg Rosuvastatin Calcium (Crestor) 10 mg PO HS [facility] Last Admin: 06/03/17 22:22 Dose: 10 mg Tacrolimus (Prograf Cap) 2 mg PO DAILY [facility] Last Admin: 06/03/17 14:01 Dose: 2 mg Tacrolimus (Prograf Cap) 1 mg PO HS [facility] Last Admin: 06/03/17 22:21 Dose: 1 mg - Labs Labs: 06/04/17 06:30 06/04/17 06:30 PT 12.1 SECONDS (9.7-12.2) 06/02/17 17:08 INR 1.1 06/02/17 17:08 APTT 29 SECONDS (21-34) 06/02/17 17:08 - Constitutional Appears: Well, No Acute Distress - Eye Exam Eye Exam: Normal appearance - ENT Exam ENT Exam: Mucous Membranes Moist - Respiratory Exam Respiratory Exam: Clear to Ausculation Bilateral, NORMAL BREATHING PATTERN - Cardiovascular Exam Cardiovascular Exam: REGULAR RHYTHM - GI/Abdominal Exam GI & Abdominal Exam: Soft. absent: Tenderness Additional comments: dull distended graft rlq non tender - Extremities Exam Extremities Exam: absent: Calf Tenderness - Back Exam Back Exam: absent: CVA tenderness (L), CVA tenderness (R) - Psychiatric Exam Psychiatric exam: Normal Affect - Skin Skin Exam: Dry Assessment and Plan (1) CKD (chronic kidney disease) stage 3, GFR 30-59 ml/min Status: Acute (2) Diabetes Status: Acute (3) Hypertension Status: Acute (4) Kidney transplant recipient Status: Acute (5) TIA (transient ischemic attack) Assessment & Plan: maintain present immunosuppression pending tacrolimus level no evidence of contrast nephropathy so far follow chems closely follow neuro recommendations to d/c iv Status: Acute
--- NOTE | 2017-06-04 09:35 | CP.PCM.DIS ---
Provider - Provider Date of Admission: 06/02/17 18:15 Attending physician: Sabas Clements MD Diagnosis - Discharge Diagnosis (1) Stroke Status: Acute (2) Kidney transplant recipient Status: Acute (3) Chest pain Status: Acute (4) Prophylactic measure Status: Acute Hospital Course - Lab Results Lab Results: Most Recent Lab Values WBC 3.8 K/uL (4.8-10.8) L 06/04/17 06:30 RBC 4.21 Mil/uL (4.40-5.90) L 06/04/17 06:30 Hgb 13.3 g/dL (12.0-18.0) 06/04/17 06:30 Hct 38.9 % (35.0-51.0) 06/04/17 06:30 MCV 92.4 fL (80.0-94.0) 06/04/17 06:30 MCH 31.6 pg (27.0-31.0) H 06/04/17 06:30 MCHC 34.2 g/dL (33.0-37.0) 06/04/17 06:30 RDW 13.3 % (11.5-14.5) 06/04/17 06:30 Plt Count 172 K/uL (130-400) 06/04/17 06:30 MPV 8.9 fL (7.2-11.7) 06/04/17 06:30 Neut % (Auto) 64.8 % (50.0-75.0) 06/04/17 06:30 Lymph % (Auto) 19.7 % (20.0-40.0) L 06/04/17 06:30 [place] % (Auto) 12.7 % (0.0-10.0) H 06/04/17 06:30 Eos % (Auto) 2.0 % (0.0-4.0) 06/04/17 06:30 Baso % (Auto) 0.8 % (0.0-2.0) 06/04/17 06:30 Neut # (Auto) 2.5 K/uL (1.8-7.0) 06/04/17 06:30 Lymph # (Auto) 0.8 K/uL (1.0-4.3) L 06/04/17 06:30 [place] # (Auto) 0.5 K/uL (0.0-0.8) 06/04/17 06:30 Eos # (Auto) 0.1 K/uL (0.0-0.7) 06/04/17 06:30 Baso # (Auto) 0.0 K/uL (0.0-0.2) 06/04/17 06:30 ESR 10 mm/hr (0-15) 06/03/17 16:40 PT 12.1 SECONDS (9.7-12.2) 06/02/17 17:08 INR 1.1 06/02/17 17:08 APTT 29 SECONDS (21-34) 06/02/17 17:08 Sodium 137 mmol/L (132-148) 06/04/17 06:30 Potassium 4.1 mmol/L (3.6-5.2) 06/04/17 06:30 Chloride 98 mmol/L (98-107) 06/04/17 06:30 Carbon Dioxide 25 mmol/L (22-30) 06/04/17 06:30 Anion Gap 18 (10-20) 06/04/17 06:30 BUN 20 mg/dL (9-20) 06/04/17 06:30 Creatinine 1.5 mg/dL (0.8-1.5) 06/04/17 06:30 Est GFR ( Amer) 58 06/04/17 06:30 Est GFR (Non-Af Amer) 48 06/04/17 06:30 POC Glucose (mg/dL) 196 mg/dL (65-110) H 06/04/17 06:38 Random Glucose 212 mg/dL (75-110) H 06/04/17 06:30 Hemoglobin A1c 6.9 % (4.2-6.5) H 06/02/17 17:08 Calcium 9.7 mg/dl (8.6-10.4) 06/04/17 06:30 Phosphorus 2.8 mg/dL (2.5-4.5) 06/04/17 06:30 Magnesium 1.6 mg/dL (1.6-2.3) 06/04/17 06:30 Total Bilirubin 0.6 mg/dL (0.2-1.3) 06/04/17 06:30 AST 30 U/L (17-59) 06/04/17 06:30 ALT 26 U/L (21-72) 06/04/17 06:30 Alkaline Phosphatase 44 U/L (38-126) 06/04/17 06:30 Total Creatine Kinase 203 U/L (55-170) H 06/03/17 22:56 CK-MB (Mass) 1.42 ng/mL (0.0-3.38) 06/03/17 22:56 Troponin I 0.0240 ng/mL (0.00-0.120) 06/04/17 06:30 C-React Prot High Sens 7.10 mg/L (1.00-3.00) H 06/03/17 16:40 Total Protein 7.1 g/dL (6.3-8.3) 06/04/17 06:30 Albumin 4.2 g/dL (3.5-5.0) 06/04/17 06:30 Globulin 3.0 gm/dL (2.2-3.9) 06/04/17 06:30 Albumin/Globulin Ratio 1.4 (1.0-2.1) 06/04/17 06:30 Triglycerides 176 mg/dL (0-149) H 06/02/17 17:08 Cholesterol 157 mg/dL (0-199) 06/02/17 17:08 LDL Cholesterol Direct 80 mg/dL (0-129) 06/02/17 17:08 HDL Cholesterol 45 mg/dL (30-70) 06/02/17 17:08 Vitamin B12 328 pg/mL (239-931) 06/03/17 16:40 25-OH Vitamin D Total 23.3 NG/ML (30.0-100.0) L 06/03/17 16:40 Homocysteine 17.8 umol/L (6.6-14.8) H 06/03/17 16:40 Blood Type O POSITIVE 06/02/17 17:08 Antibody Screen Negative 06/02/17 17:08 Discharge Exam - Head Exam Head Exam: ATRAUMATIC, NORMAL INSPECTION, NORMOCEPHALIC Discharge Plan - Discharge Medications Prescriptions: Atorvastatin [Lipitor] 20 mg PO HS #30 tab Clopidogrel [Plavix] 75 mg PO DAILY #30 tab Lisinopril [Zestril] 20 mg PO DAILY #30 tablet - Follow Up Plan Condition: STABLE Disposition: HOME/ ROUTINE Additional Instructions: Please follow up with Dr. Pablo in her office in 2 weeks. Please call to make an appointment. I have attached the office information. Please continue taking home medications as well as the new medications i have prescribed. The nurse will provide you with a detailed list of medications. Please follow up with your primary care doctor in 7-10 days. Please call to make an appointment Please come back to the ED if symptoms return Please follow up with your business objects consultant as scheduled. Referrals: Chente Pablo MD [Staff Provider] -
[2017-06-04] MEDS: Enoxaparin 40 mg Syringe SC SCH (09:45)
--- NOTE | 2017-06-04 10:32 | CP.PCM.DIS ---
Provider - Provider Date of Admission: 06/02/17 18:15 Attending physician: Sabas Clements MD Primary care physician: Dr Stephenson Consults: Neurology ~ Dr Pablo Nephrology ~ Dr Boothe Time Spent in preparation of Discharge (in minutes): 29 Hospital Course - Lab Results Lab Results: Most Recent Lab Values WBC 3.8 K/uL (4.8-10.8) L 06/04/17 06:30 RBC 4.21 Mil/uL (4.40-5.90) L 06/04/17 06:30 Hgb 13.3 g/dL (12.0-18.0) 06/04/17 06:30 Hct 38.9 % (35.0-51.0) 06/04/17 06:30 MCV 92.4 fL (80.0-94.0) 06/04/17 06:30 MCH 31.6 pg (27.0-31.0) H 06/04/17 06:30 MCHC 34.2 g/dL (33.0-37.0) 06/04/17 06:30 RDW 13.3 % (11.5-14.5) 06/04/17 06:30 Plt Count 172 K/uL (130-400) 06/04/17 06:30 MPV 8.9 fL (7.2-11.7) 06/04/17 06:30 Neut % (Auto) 64.8 % (50.0-75.0) 06/04/17 06:30 Lymph % (Auto) 19.7 % (20.0-40.0) L 06/04/17 06:30 [place] % (Auto) 12.7 % (0.0-10.0) H 06/04/17 06:30 Eos % (Auto) 2.0 % (0.0-4.0) 06/04/17 06:30 Baso % (Auto) 0.8 % (0.0-2.0) 06/04/17 06:30 Neut # (Auto) 2.5 K/uL (1.8-7.0) 06/04/17 06:30 Lymph # (Auto) 0.8 K/uL (1.0-4.3) L 06/04/17 06:30 [place] # (Auto) 0.5 K/uL (0.0-0.8) 06/04/17 06:30 Eos # (Auto) 0.1 K/uL (0.0-0.7) 06/04/17 06:30 Baso # (Auto) 0.0 K/uL (0.0-0.2) 06/04/17 06:30 ESR 10 mm/hr (0-15) 06/03/17 16:40 PT 12.1 SECONDS (9.7-12.2) 06/02/17 17:08 INR 1.1 06/02/17 17:08 APTT 29 SECONDS (21-34) 06/02/17 17:08 Sodium 137 mmol/L (132-148) 06/04/17 06:30 Potassium 4.1 mmol/L (3.6-5.2) 06/04/17 06:30 Chloride 98 mmol/L (98-107) 06/04/17 06:30 Carbon Dioxide 25 mmol/L (22-30) 06/04/17 06:30 Anion Gap 18 (10-20) 06/04/17 06:30 BUN 20 mg/dL (9-20) 06/04/17 06:30 Creatinine 1.5 mg/dL (0.8-1.5) 06/04/17 06:30 Est GFR ( Amer) 58 06/04/17 06:30 Est GFR (Non-Af Amer) 48 06/04/17 06:30 POC Glucose (mg/dL) 196 mg/dL (65-110) H 06/04/17 06:38 Random Glucose 212 mg/dL (75-110) H 06/04/17 06:30 Hemoglobin A1c 6.9 % (4.2-6.5) H 06/02/17 17:08 Calcium 9.7 mg/dl (8.6-10.4) 06/04/17 06:30 Phosphorus 2.8 mg/dL (2.5-4.5) 06/04/17 06:30 Magnesium 1.6 mg/dL (1.6-2.3) 06/04/17 06:30 Total Bilirubin 0.6 mg/dL (0.2-1.3) 06/04/17 06:30 AST 30 U/L (17-59) 06/04/17 06:30 ALT 26 U/L (21-72) 06/04/17 06:30 Alkaline Phosphatase 44 U/L (38-126) 06/04/17 06:30 Total Creatine Kinase 203 U/L (55-170) H 06/03/17 22:56 CK-MB (Mass) 1.42 ng/mL (0.0-3.38) 06/03/17 22:56 Troponin I 0.0240 ng/mL (0.00-0.120) 06/04/17 06:30 C-React Prot High Sens 7.10 mg/L (1.00-3.00) H 06/03/17 16:40 Total Protein 7.1 g/dL (6.3-8.3) 06/04/17 06:30 Albumin 4.2 g/dL (3.5-5.0) 06/04/17 06:30 Globulin 3.0 gm/dL (2.2-3.9) 06/04/17 06:30 Albumin/Globulin Ratio 1.4 (1.0-2.1) 06/04/17 06:30 Triglycerides 176 mg/dL (0-149) H 06/02/17 17:08 Cholesterol 157 mg/dL (0-199) 06/02/17 17:08 LDL Cholesterol Direct 80 mg/dL (0-129) 06/02/17 17:08 HDL Cholesterol 45 mg/dL (30-70) 06/02/17 17:08 Vitamin B12 328 pg/mL (239-931) 06/03/17 16:40 25-OH Vitamin D Total 23.3 NG/ML (30.0-100.0) L 06/03/17 16:40 Homocysteine 17.8 umol/L (6.6-14.8) H 06/03/17 16:40 Blood Type O POSITIVE 06/02/17 17:08 Antibody Screen Negative 06/02/17 17:08 - Hospital Course Hospital Course: This is a 62 year old male who came to the hospital with a headache of his left head and parathesia of his left face. Because of the headache as well as the left face parathesia and numbness he was brought to the ER by family members. By the time he arrived in the ER he reported almost complete resolution of these symptoms He was had a CVA of the right occipital area demonstrated on MRI of the brain. He has a past medical history of DM, HTN, Kidney transplant in 2014, previously on HD, he has blindness left eye. He recently underwent a cardiac catherization that was reportedly normal, while here the cardiac markers were negative and He has been seen by PT here and was able to move over 200 feet, he did not need FRED or home services. While here his creatine remained stable at baseline. He was also evaluated by cardiology, neurology and also by his nephrology group There are RX for statin, plavix, and AVERY-I. He understands that he needs to follow up with Neurology, Nephrology, as well as with his primary care physician. thank you Mason Haines Discharge Exam - Head Exam Head Exam: ATRAUMATIC, NORMAL INSPECTION, NORMOCEPHALIC - Eye Exam Additional comments: Very poor vision. He is almost blind in left eye - ENT Exam ENT Exam: Mucous Membranes Moist - Respiratory Exam Respiratory Exam: Clear to PA & Lateral, NORMAL BREATHING PATTERN - Cardiovascular Exam Cardiovascular Exam: REGULAR RHYTHM - GI/Abdominal Exam GI & Abdominal Exam: Normal Bowel Sounds. absent: Diminished Bowel Sounds, Distended, Firm, Guarding - Neurological Exam Neurological exam: Alert, Oriented x3 Additional comments: He no longer has any facial parathesia or numbness on exam - Psychiatric Exam Psychiatric exam: Normal Affect, Normal Mood - Skin Skin Exam: Normal Color, Warm Discharge Plan - Discharge Medications Prescriptions: Atorvastatin [Lipitor] 20 mg PO HS #30 tab Clopidogrel [Plavix] 75 mg PO DAILY #30 tab Lisinopril [Zestril] 20 mg PO DAILY #30 tablet - Follow Up Plan Condition: STABLE Disposition: HOME/ ROUTINE Instructions: High Blood Pressure (DC), Stroke (DC), Transient Ischemic Attack (DC), Chest Pain (DC), Lowering the Risk of Having Another Stroke, Atorvastatin , Clopidogrel, Lisinopril, Clot Dissolving Drugs for Heart Attack or Stroke, Hypertension (DC), Hypertension (GEN) Additional Instructions: Please follow up with Dr. Pablo in her office in 2 weeks. Please call to make an appointment. I have attached the office information. Please continue taking home medications as well as the new medications i have prescribed. The nurse will provide you with a detailed list of medications. Please follow up with your primary care doctor in 7-10 days. Please call to make an appointment Please come back to the ED if symptoms return Please follow up with your silver miner blasting as scheduled. Referrals: Chente Pablo MD [Staff Provider] -
--- NOTE | 2017-06-04 10:46 | CP.PCM.CON ---
History of Present Illness - History of Present Illness History of Present Illness: CC: cardiac eveluation 61 year old male with history of DM, HTN, HLD, ESRD s/p left kidney transplant, and left eye blindness who presented to the ED for an episode of generalized numbness and weakness beginning earlier in the afternoon. He stated that at 1pm he developed a headache at the top and back of his head along with paresthesias in his bilateral arms and face. He described the sensation as feeling though his arms and face had "gone to sleep." He says he was able to walk at the time but that he felt unsteady and had some weakness in his legs. His sister then brought him to the hospital. He states that he became very anxious during this episode and felt he was "going crazy." He states that he experienced associated SOB and palpitations. He reported that all of this had resolved soon after he arrived at the hospital and that he was no longer experiencing any of these symptoms during questioning at bedside. Yesterday, he had a cardiac cath done through his R radial artery and R femoral artery. Patient was told that his coronaries were clean and no stents were placed. He experienced no complications and stated that he had gone home feeling well afterwards. He follows up with Dr. Boothe (Nephro) every 2 month. He denies paralysis, CP, cough, fever, chills, diarrhea, constipation, bowel and bladder incontinence, syncope. [place] video insurance billing clerk: Eladia Méndez [id number] PMD: Sera Avalos: Tl, Cardio: [facility] PMH: DM, HTN, HLD Surg: Left kidney transplant 4 years ago; eye surgery (unspecified) FMH: DM in brother (62 y/o); unspecified lung disease in mother (81 y/o) Social: Currently denies tobacco use though 40 years ago he reports to have smoked several cigarettes daily for several years; reports to drink 1-2 beers on Fridays and Saturdays; denies other drug use Allergies: NKDA Home meds: Unable to provide at this moment as he left his home in a hurry. Will have a family member to bring it in the morning Present on Admission - Present on Admission Any Indicators Present on Admission: No Review of Systems - Constitutional Constitutional: As Per HPI, Headache, Weakness. absent: Anorexia, Chills, Fatigue - EENT Eyes: As Per HPI. absent: Blind Spots, Discharge, Irritation Ears: As Per HPI. absent: Dizziness Nose/Mouth/Throat: As Per HPI. absent: Epistaxis, Nasal Obstruction, Nasal Trauma - Cardiovascular Cardiovascular: As Per HPI. absent: Chest Pain, Diaphoresis, Edema, Leg Edema - Respiratory Respiratory: As Per HPI. absent: Cough, Wheezing - Gastrointestinal Gastrointestinal: As Per HPI. absent: Abdominal Pain, Nausea, Vomiting - Genitourinary Genitourinary: As Per HPI. absent: Change in Urinary Stream, Dysuria - Musculoskeletal Musculoskeletal: As Per HPI. absent: Arthralgias, Deformity - Integumentary Integumentary: As Per HPI. absent: Acne, Alopecia - Neurological Neurological: As Per HPI, Numbness, Headaches. absent: Syncope - Psychiatric Psychiatric: As Per HPI, Anxiety - Endocrine Endocrine: As Per HPI. absent: Change in Body Appearance - Hematologic/Lymphatic Hematologic: As Per HPI Physical Exam - Constitutional Appears: Non-toxic, No Acute Distress - Head Exam Head Exam: ATRAUMATIC, NORMOCEPHALIC - Eye Exam Eye Exam: Normal appearance, PERRL. absent: Nystagmus - ENT Exam ENT Exam: Mucous Membranes Moist - Neck Exam Neck exam: Positive for: Normal Inspection - Respiratory Exam Respiratory Exam: Clear to Auscultation Bilateral, NORMAL BREATHING PATTERN. absent: Wheezes, Respiratory Distress - Cardiovascular Exam Cardiovascular Exam: REGULAR RHYTHM, +S1, +S2 - GI/Abdominal Exam GI & Abdominal Exam: Normal Bowel Sounds, Soft. absent: Tenderness - Extremities Exam Extremities exam: Positive for: normal capillary refill, normal inspection, pedal pulses present Additional comments: Right wrist and right groin ecchymosis Left arm surgical scar from AVF - Neurological Exam Neurological exam: Alert, CN II-XII Intact, Oriented x3 Additional comments: NIHSS score 0 - Expanded Neurological Exam Expanded Patient oriented to: person, place, time - Psychiatric Exam Psychiatric exam: Normal Affect, Normal Mood - Skin Skin Exam: Dry, Warm Past Patient History - Past Medical History & Family History Past Medical History?: Yes - Past Social History Smoking Status: Former Smoker - CARDIAC Hx Hypercholesterolemia: Yes Hx Hypertension: Yes - PULMONARY Hx Respiratory Disorders: No - NEUROLOGICAL Hx Neurological Disorder: No - HEENT Hx Blind: Yes (LEFT EYE DIABETIC RETINOPATHY) - RENAL Hx Chronic Kidney Disease: Yes - ENDOCRINE/METABOLIC Hx Diabetes Mellitus Type 2: Yes - HEMATOLOGICAL/ONCOLOGICAL Hx Anemia: Yes - INTEGUMENTARY Hx Dermatological Problems: No - MUSCULOSKELETAL/RHEUMATOLOGICAL Hx Musculoskeletal Disorders: No - GASTROINTESTINAL Hx Gastritis: Yes - GENITOURINARY/GYNECOLOGICAL Hx Genitourinary Disorders: No - PSYCHIATRIC Hx Substance Use: No - SURGICAL HISTORY Hx Surgeries: Yes Hx Kidney Transplant: Yes (04/01/13) Hx Vascular Surgery: Yes (LEFT ARM A/V FISTULA) - ANESTHESIA Hx Anesthesia: Yes Hx Anesthesia Reactions: No Hx Malignant Hyperthermia: No Meds Home Medications: Home Medication List Medication Instructions Recorded Confirmed Type Atorvastatin [Lipitor] 20 mg PO HS #30 tab 06/04/17 Rx Clopidogrel [Plavix] 75 mg PO DAILY #30 tab 06/04/17 Rx Lisinopril [Zestril] 20 mg PO DAILY #30 tablet 06/04/17 Rx Allergies/Adverse Reactions: Allergies Allergy/AdvReac Type Severity Reaction Status Date / Time No Known Allergies Allergy Verified 03/18/15 08:48 - Medications Medications: Current Medications Aspirin (Aspirin Chewable) 81 mg PO DAILY [facility] Last Admin: 06/04/17 09:43 Dose: 81 mg Clopidogrel Bisulfate (Plavix) 75 mg PO DAILY [facility] Last Admin: 06/04/17 09:43 Dose: 75 mg Enoxaparin Sodium (Lovenox) 40 mg SC DAILY [facility] Last Admin: 06/04/17 09:45 Dose: 40 mg Insulin Human Regular (Novolin R) 0 unit SC [facility] PRN Reason: Protocol Last Admin: 06/04/17 08:30 Dose: 2 unit Lisinopril (Zestril) 20 mg PO DAILY [facility] Last Admin: 06/04/17 10:09 Dose: 20 mg Mycophenolate Mofetil (Cellcept) 500 mg PO BID [facility] Last Admin: 06/04/17 09:44 Dose: 500 mg Prednisone (Prednisone Tab) 5 mg PO DAILY [facility] Last Admin: 06/04/17 09:43 Dose: 5 mg Rosuvastatin Calcium (Crestor) 10 mg PO HS [facility] Last Admin: 06/03/17 22:22 Dose: 10 mg Tacrolimus (Prograf Cap) 2 mg PO DAILY [facility] Last Admin: 06/04/17 09:44 Dose: 2 mg Tacrolimus (Prograf Cap) 1 mg PO HS [facility] Last Admin: 04/20/18 22:21 Dose: 1 mg Results - Vital Signs Recent Vital Signs: Last Vital Signs Temp 98 F 06/04/17 07:00 Pulse 82 06/04/17 09:42 Resp 20 06/04/17 07:00 BP 190/93 H 06/04/17 09:42 Pulse Ox 98 06/04/17 07:00 - Labs Result Diagrams: 06/04/17 06:30 06/04/17 06:30 Labs: Laboratory Results - last 24 hr 06/03/17 06/03/17 06/03/17 11:53 12:11 16:24 WBC RBC Hgb Hct MCV MCH MCHC RDW Plt Count MPV Neut % (Auto) Lymph % (Auto) [place] % (Auto) Eos % (Auto) Baso % (Auto) Neut # (Auto) Lymph # (Auto) [place] # (Auto) Eos # (Auto) Baso # (Auto) ESR Sodium Potassium Chloride Carbon Dioxide Anion Gap BUN Creatinine Est GFR ( Amer) Est GFR (Non-Af Amer) POC Glucose (mg/dL) 131 H 230 H Random Glucose Calcium Phosphorus Magnesium Total Bilirubin AST ALT Alkaline Phosphatase Total Creatine Kinase 187 H CK-MB (Mass) 1.52 Troponin I 0.0190 C-React Prot High Sens Total Protein Albumin Globulin Albumin/Globulin Ratio Vitamin B12 25-OH Vitamin D Total Homocysteine 06/03/17 06/03/17 06/03/17 16:40 16:40 16:40 WBC RBC Hgb Hct MCV MCH MCHC RDW Plt Count MPV Neut % (Auto) Lymph % (Auto) [place] % (Auto) Eos % (Auto) Baso % (Auto) Neut # (Auto) Lymph # (Auto) [place] # (Auto) Eos # (Auto) Baso # (Auto) ESR Sodium Potassium Chloride Carbon Dioxide Anion Gap BUN Creatinine Est GFR ( Amer) Est GFR (Non-Af Amer) POC Glucose (mg/dL) Random Glucose Calcium Phosphorus Magnesium Total Bilirubin AST ALT Alkaline Phosphatase Total Creatine Kinase 223 H CK-MB (Mass) 1.56 Troponin I 0.0210 C-React Prot High Sens Total Protein Albumin Globulin Albumin/Globulin Ratio Vitamin B12 328 25-OH Vitamin D Total 23.3 L Homocysteine 17.8 H 06/03/17 06/03/17 06/03/17 16:40 16:40 20:04 WBC RBC Hgb Hct MCV MCH MCHC RDW Plt Count MPV Neut % (Auto) Lymph % (Auto) [place] % (Auto) Eos % (Auto) Baso % (Auto) Neut # (Auto) Lymph # (Auto) [place] # (Auto) Eos # (Auto) Baso # (Auto) ESR 10 Sodium Potassium Chloride Carbon Dioxide Anion Gap BUN Creatinine Est GFR ( Amer) Est GFR (Non-Af Amer) POC Glucose (mg/dL) Random Glucose Calcium Phosphorus Magnesium Total Bilirubin AST ALT Alkaline Phosphatase Total Creatine Kinase 214 H CK-MB (Mass) 1.46 Troponin I 0.0160 C-React Prot High Sens 7.10 H Total Protein Albumin Globulin Albumin/Globulin Ratio Vitamin B12 25-OH Vitamin D Total Homocysteine 06/03/17 06/03/17 06/04/17 21:22 22:56 06:30 WBC 3.8 L RBC 4.21 L Hgb 13.3 Hct 38.9 MCV 92.4 MCH 31.6 H MCHC 34.2 RDW 13.3 Plt Count 172 MPV 8.9 Neut % (Auto) 64.8 Lymph % (Auto) 19.7 L [place] % (Auto) 12.7 H Eos % (Auto) 2.0 Baso % (Auto) 0.8 Neut # (Auto) 2.5 Lymph # (Auto) 0.8 L [place] # (Auto) 0.5 Eos # (Auto) 0.1 Baso # (Auto) 0.0 ESR Sodium Potassium Chloride Carbon Dioxide Anion Gap BUN Creatinine Est GFR ( Amer) Est GFR (Non-Af Amer) POC Glucose (mg/dL) 195 H Random Glucose Calcium Phosphorus Magnesium Total Bilirubin AST ALT Alkaline Phosphatase Total Creatine Kinase 203 H CK-MB (Mass) 1.42 Troponin I 0.0190 C-React Prot High Sens Total Protein Albumin Globulin Albumin/Globulin Ratio Vitamin B12 25-OH Vitamin D Total Homocysteine 06/04/17 06/04/17 06:30 06:38 WBC RBC Hgb Hct MCV MCH MCHC RDW Plt Count MPV Neut % (Auto) Lymph % (Auto) [place] % (Auto) Eos % (Auto) Baso % (Auto) Neut # (Auto) Lymph # (Auto) [place] # (Auto) Eos # (Auto) Baso # (Auto) ESR Sodium 137 Potassium 4.1 Chloride 98 Carbon Dioxide 25 Anion Gap 18 BUN 20 Creatinine 1.5 Est GFR ( Amer) 58 Est GFR (Non-Af Amer) 48 POC Glucose (mg/dL) 196 H Random Glucose 212 H Calcium 9.7 Phosphorus 2.8 Magnesium 1.6 Total Bilirubin 0.6 AST 30 ALT 26 Alkaline Phosphatase 44 Total Creatine Kinase CK-MB (Mass) Troponin I 0.0240 C-React Prot High Sens Total Protein 7.1 Albumin 4.2 Globulin 3.0 Albumin/Globulin Ratio 1.4 Vitamin B12 25-OH Vitamin D Total Homocysteine Assessment & Plan - Assessment and Plan (Free Text) Assessment: CVA s/p cath Neuro symptoms resolved Cardiac point of view stable 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
[2017-06-04 13:13] VITALS: BP 168/86; PULSE 72
[2017-06-04 14:08] VITALS: TEMP 97.8; O2SAT 97
--- NOTE | 2017-06-05 09:41 | VASCLAB ---
PROCEDURE: HISTORY: stenosis, CTA COMPARISON: None available. TECHNIQUE: Grayscale and duplex Doppler evaluation of the cervical carotid and vertebral arteries were performed. The common carotid, carotid bifurcations and cervical Internal Carotid Artery (ICA) and proximal External Carotid Artery (ECA) were evaluated. The vertebral arteries were evaluated for gross patency and flow direction. Report prepared by Iftikhar Monroy, BS, RVT FINDINGS: RIGHT CAROTID ARTERIES: 1. Common Carotid Artery: No significant focal plaque formation of the right common carotid artery. Maximum Peak Systolic velocity: 84 cm/sec: End-diastolic velocity 16 cm/sec. 2. Carotid Bifurcation: plaque formation. Maximum Peak Systolic velocity: 54 cm/sec: End-diastolic velocity 13 cm/sec. 3. Internal Carotid Artery: Plaque description: 3.1. Proximal Segment: Peak systolic velocity 73 cm/sec: End-diastolic velocity 18 cm/sec - % stenosis 0-15% 3.2. Middle Segment: Peak systolic velocity 120 cm/sec: End-diastolic velocity 38 cm/sec - % stenosis 0-15% 3.3. Distal Segment: Peak systolic velocity 70 cm/sec: End-diastolic velocity 19 cm/sec - % stenosis 0-15% 4. External Carotid Artery: No significant focal plaque formation. Peak systolic velocity 131 cm/sec 5. ICA/CCA Ratio: 1.4 LEFT CAROTID ARTERIES: 1. Common Carotid Artery: No significant focal plaque formation of the left common carotid artery. Maximum Peak Systolic velocity: 60 cm/sec: End-diastolic velocity 16 cm/sec. 2. Carotid Bifurcation: plaque formation. Maximum Peak Systolic velocity: 60 cm/sec: End-diastolic velocity 12 cm/sec. 3. Internal Carotid Artery: Plaque description: 3.1. Proximal Segment: Peak systolic velocity 53 cm/sec: End-diastolic velocity 15 cm/sec - % stenosis 0-15% 3.2. Middle Segment: Peak systolic velocity 60 cm/sec: End-diastolic velocity 16 cm/sec - % stenosis 0-15% 3.3. Distal Segment: Peak systolic velocity 60 cm/sec: End-diastolic velocity 16 cm/sec - % stenosis 0-15% 4. External Carotid Artery: No significant focal plaque formation. Peak systolic velocity 114 cm/sec 5. ICA/CCA Ratio: 1.0 VERTEBRAL ARTERIES: 1. Right Vertebral Artery: The right vertebral artery flow direction is antegrade. 2. Left Vertebral Artery: The left vertebral artery flow direction is antegrade. OTHER FINDINGS: 1. Right Brachial Blood pressure: 182 mmHg. 2. Left Brachial Blood pressure: MmHg. Tortuosity noted in the distal internal carotid artery bilaterally. IMPRESSION: RIGHT: Duplex scan does not suggest hemodynamically significant stenosis of the right extracranial carotid arteries. LEFT: Duplex scan does not suggest hemodynamically significant stenosis of the left extracranial carotid arteries.
--- NOTE | 2017-06-06 18:07 | CARD ---
APPROVED REPORT EXAM: Two-dimensional and M-mode echocardiogram with Doppler and color Doppler. Other Information Quality : GoodRhythm : INDICATION CVA/TIA Pulmonary Hypertention EVAL. PROX AORTA FOR DISSECTION RISK FACTORS Hypertension Diabetes 2D DIMENSIONS IVSd1.4 (0.7-1.1cm)LVDd4.3 (3.9-5.9cm) PWd1.5 (0.7-1.1cm)LVDs2.1 (2.5-4.0cm) FS (%) 50.5 %LVEF (%)82.1 (>50%) M-Mode DIMENSIONS RVDd1.71 (2.1-3.2cm)Left Atrium (MM)4.78 (2.5-4.0cm) IVSd1.14 (0.7-1.1cm)Aortic Root2.96 (2.2-3.7cm) LVDd4.86 (4.0-5.6cm)Aortic Cusp Exc.1.85 (1.5-2.0cm) PWd1.21 (0.7-1.1cm)FS (%) 47 % LVDs2.59 (2.0-3.8cm)LVEF (%)78 (>50%) Mitral Valve MV E Mgixkjnt13.5cm/sMV A Iwjfdxxm112.9cm/sE/A ratio0.7 TDI E/Lateral E'0.0E/Medial E'0.0 Tricuspid Valve TR Peak Nlcojpju287cm/sTR Peak Gr.[id number] LEFT VENTRICLE The left ventricle is normal size. There is normal left ventricular wall thickness. Left ventricle systolic function is normal. The Ejection Fraction is >70%. There is normal LV segmental wall motion. Tissue Doppler imaging reveals abnormal left ventricular diastolic dysfunction. ATRIA The left atrium is mildly dilated. The right atrium size is normal. The interatrial septum is intact with no evidence for an atrial septal defect. AORTIC VALVE The aortic valve is normal in structure. No aortic regurgitation is present. There is no aortic valvular stenosis. There is no aortic valvular vegetation. MITRAL VALVE The posterior mitral valve leaflet appears thickened, but open well. There is no evidence of mitral valve prolapse. There is no mitral valve stenosis. There is no mitral valve regurgitation noted. TRICUSPID VALVE The tricuspid valve is normal in structure. There is mild tricuspid regurgitation. Right ventricular systolic pressure is estimated at 30-40 mmHg. There is mild pulmonary hypertension. PULMONIC VALVE The pulmonic valve is not well visualized. There is mild pulmonic valvular regurgitation. GREAT VESSELS The aortic root is normal in size. PERICARDIAL EFFUSION There is no significant pericardial effusion. <Conclusion> Left ventricle systolic function is normal. The Ejection Fraction is >70%. Diastolic dysfunction. No aortic regurgitation is present. There is no mitral valve regurgitation noted. There is mild tricuspid regurgitation. There is mild pulmonary hypertension. There is mild pulmonic valvular regurgitation.
--- NOTE | 2017-06-07 22:14 | CARD ---
APPROVED REPORT EKG Measurement Heart [id number] [place] [id number] <Conclusion> Normal sinus rhythm Inferior infarct, age undetermined ST & T wave abnormality, consider lateral ischemia Abnormal ECG
--- NOTE | 2017-06-07 22:14 | CARD ---
APPROVED REPORT EKG Measurement Heart [id number] ID [id number] <Conclusion> Normal sinus rhythm Cannot rule out Inferior infarct, age undetermined ST & T wave abnormality, consider lateral ischemia Abnormal ECG
--- NOTE | 2017-06-07 23:05 | CARD ---
APPROVED REPORT EKG Measurement Heart [id number] <Conclusion> Normal sinus rhythm ST & T wave abnormality, consider lateral ischemia Abnormal ECG
--- NOTE | 2017-06-07 23:06 | CARD ---
APPROVED REPORT EKG Measurement Heart [id number] [place] 138P19 [id number] <Conclusion> Normal sinus rhythm ST & T wave abnormality, consider lateral ischemia Abnormal ECG
--- NOTE | 2017-06-07 23:06 | CARD ---
APPROVED REPORT EKG Measurement Heart [id number] [place] 144P50 [id number] <Conclusion> Normal sinus rhythm ST & T wave abnormality, consider lateral ischemia Abnormal ECG
--- NOTE | 2017-06-07 23:06 | CARD ---
APPROVED REPORT EKG Measurement Heart [id number] [place] 136P25 [id number] <Conclusion> Normal sinus rhythm Possible Inferior infarct, age undetermined Abnormal ECG
== END 2017-06-04 14:40 | disposition home or self-care (01) ==
LOC: C.ER 16:45 → C.9E 18:15 → C.6T 20:21
PROVIDERS: ADMIT Family Medicine; ATTEND Family Medicine
DX: G45.9 Transient cerebral ischemic attack, unspecified (principal); R07.9 Chest pain, unspecified; I12.0 Hypertensive chronic kidney disease with stage 5 chronic kidney disease or end stage renal disease; N18.3 Chronic kidney disease, stage 3 (moderate); E11.22 Type 2 diabetes mellitus with diabetic chronic kidney disease; E11.319 Type 2 diabetes mellitus with unspecified diabetic retinopathy without macular edema; H54.62 Unqualified visual loss, left eye, normal vision right eye; E78.00 Pure hypercholesterolemia, unspecified; Z94.0 Kidney transplant status; Z79.899 Other long term (current) drug therapy; Z79.4 Long term (current) use of insulin
CPT/HCPCS: 36415; 70450; 70496; 70498; 70551; 71045; 78582; 80053; 80061; 81240; 81241; 82306; 82607; 82948; 83036; 83090; 83735; 84100; 84484; 85025; 85610; 85651; 85730; 86140; 86850; 86900; 92523; 93306; 93880; 96372; 97116; 97161; 97165; 97530; 99285; G0378; G8978; G8979; G8980; G8987; G8988; G8989; G9174; G9175; G9176; J1650; J7030; J7040; J7507; J7517; Q9967

== ENCOUNTER 2017-06-04 19:37 | Emergency (ER) | payer MEDICARE, MEDICAID ==
[2017-06-04 19:57] VITALS: BMI 33.4
[2017-06-04 20:23] LABS: BASO # 0.1 K/uL (0.0-0.2); BASO % 1.7 % (0.0-2.0); EOS # 0.1 K/uL (0.0-0.7); EOS % 1.2 % (0.0-4.0); HEMOGLOBIN 13.5 g/dL (12.0-18.0); LYMPH # 0.8 K/uL (1.0-4.3); LYMPH % 13.5 % (20.0-40.0); MEAN CORPUSCULAR HEMOGLOBIN 31.7 pg (27.0-31.0); MEAN CORPUSCULAR HGB CONC 34.4 g/dL (33.0-37.0); MEAN PLATELET VOLUME 9.2 fL (7.2-11.7); MONO # 0.8 K/uL (0.0-0.8); MONO % 13.7 % (0.0-10.0); NEUT # 3.9 K/uL (1.8-7.0); NEUT % 69.9 % (50.0-75.0); RBC 4.27 Mil/uL (4.40-5.90); RED CELL DISTRIBUTION WIDTH 13.3 % (11.5-14.5); WHITE BLOOD COUNT 5.6 K/uL (4.8-10.8)
[2017-06-04 20:28] LABS: INR 1.1; PROTHROMBIN TIME 12.8 SECONDS (9.7-12.2)
[2017-06-04 20:47] LABS: TROPONIN I 0.016 ng/mL (0.00-0.120)
[2017-06-04 20:49] LABS: ALB/GLOB RATIO 1.4 (1.0-2.1); ALBUMIN 4.5 g/dL (3.5-5.0); CALCIUM 10.1 mg/dl (8.6-10.4)
--- NOTE | 2017-06-04 21:16 | C.PDOC ---
History Of Present Illness 62 year old male presents to the ED complaining of acute onset of right vision changes associated with anxiety, headaches, and whole body lethargy. Patient reported to ED for similar symptoms on June 02. Patient was discharged earlier today. Patient had normal impatient exams consisting of cardiac ultrasounds, CT of heart and MRI of brain. Patient has 20% vision in left eye post surgical retina detachment, status post right lens replacement vision in right eye spontaneously resolved prior to return in ER. Time Seen by Provider: 06/04/17 19:56 Chief Complaint (Nursing): Headache History Per: Patient History/Exam Limitations: no limitations Onset/Duration Of Symptoms: Hrs Current Symptoms Are (Timing): Still Present Preceeding Symptoms: Visual Disturbances Associated Symptoms: Blurred Vision, Other (anxiety, headaches, whole body lethargy) Past Medical History Reviewed: Historical Data, Nursing Documentation, Vital Signs Vital Signs: Last Vital Signs Temp 98.2 F 06/04/17 21:27 Pulse 74 06/04/17 21:27 Resp 16 06/04/17 21:27 BP 164/77 H 06/04/17 21:27 Pulse Ox 97 06/07/17 23:50 - Medical History PMH: Anemia, CAD, Diabetes, Gastritis, HTN, Hypercholesterolemia, Hypothyroidism , Chronic Kidney Disease Family History: States: No Known Family Hx - Social History Hx Tobacco Use: No Hx Alcohol Use: No Hx Substance Use: No - Immunization History Hx Influenza Vaccination: Yes Hx Pneumococcal Vaccination: Yes Review Of Systems Except As Marked, All Systems Reviewed And Found Negative. Constitutional: Positive for: Other (whole body lethary ) Eyes: Positive for: Vision Change (right vision changes) Neurological: Positive for: Headache Psych: Positive for: Anxiety Physical Exam - Physical Exam Appears: Non-toxic, In Acute Distress Skin: Warm, Dry Head: Atraumatic, Normacephalic Eye(s): right: Other (right eye surgical lens replacement), left: Abnormal Pupil (post-operative left eye with irregular pupils) Nose: Normal Cardiovascular: Rhythm Regular, No Murmur Respiratory: Normal Breath Sounds, No Rales, No Rhonchi, No Wheezing Gastrointestinal/Abdominal: Soft, No Tenderness Extremity: Normal ROM (x4) Neurological/Psych: Oriented x3, Normal Speech, Normal Cognition, Normal Motor, Normal Sensation, Normal Reflexes Gait: Steady ED Course And Treatment - Laboratory Results Result Diagrams: 06/04/17 20:19 06/04/17 20:19 Lab Interpretation: Normal ECG: Interpreted By Me ECG Rhythm: Sinus Rhythm ECG Interpretation: Normal Rate From EC O2 Sat by Pulse Oximetry: 97 (RA) Pulse Ox Interpretation: Normal - Radiology CXR: Interpreted by Me CXR Interpretation: Yes: No Acute Disease Progress Note: mild nausea- given Zofran IV. BP well controlled in ED. pt's vision of R eye back to baseline. Reevaluation Time: 21:14 Reassessment Condition: Improved - Physician Consult Information Outcome Of Conversation: follow-up call from Dr. Ansari- pt did VERY well in the office, small retinal hemorrage and apparently NOT angle-closure glaucoma. Vision improved and pt ok- was sent home. Medical Decision Making Medical Decision Making: no acute changes, consider panic or retinal issues as pt with complete evals of card cath, carotids, CT brain (x 2 this week) and MRI brain all wnl and NOT causative in this pt's presentations. Explained and reassured to pt. Disposition Doctor Will See Patient In The: Office Counseled Patient/Family Regarding: Studies Performed, Diagnosis - Disposition Referrals: Cruz Avila MD [Staff Provider] - Disposition: HOME/ ROUTINE Disposition Time: 21:16 Condition: GOOD Additional Instructions: Evaluacion' del cerebro y todos cara examenes de la latoya guan salido NORMALES Sigue con gayle medico y gayle Opthalmologo fe normal. Instructions: Anxiety, Adult (DC) Forms: [facility] ([place]) Print Language: SYRIAC - Clinical Impression Clinical Impression: Visual changes, Anxiety about health - Scribe Statement The provider has reviewed the documentation as recorded by the Augusta Jarquin Provider Attestation: All medical record entries made by the Reeseibmike were at my direction and personally dictated by me. I have reviewed the chart and agree that the record accurately reflects my personal performance of the history, physical exam, medical decision making, and the department course for this patient. I have also personally directed, reviewed, and agree with the discharge instructions and disposition.
[2017-06-04 21:28] VITALS: BP 164/77; PULSE 74; RESP 16; TEMP 98.2
--- NOTE | 2017-06-04 21:40 | CT ---
EXAM: CT Head Without Intravenous Contrast EXAM DATE/TIME: 06/04/2017 7:57 PM CLINICAL HISTORY: 62 years old, male; Pain and signs and symptoms; Visual disturbance; Headache; Patient HX: 06-02-17 code stroke; Additional info: Vision changes r eye, transient TECHNIQUE: Axial computed tomography images of the head/brain without intravenous contrast. All CT scans at this facility use one or more dose reduction techniques, viz.: automated exposure control; ma/kV adjustment per patient size (including targeted exams where dose is matched to indication; i.e. head); or iterative reconstruction technique. Coronal and sagittal reformatted images were created and reviewed. COMPARISON: Prior head CT of 2017-06-02 17:05 FINDINGS: BRAIN: Focal areas of low density in the right basal ganglia, most compatible with old/chronic lacunar infarcts. Areas of low density in the periventricular white matter bilaterally, most likely representing mild chronic small vessel ischemic changes. No significant acute abnormality identified. No acute hemorrhage seen within the brain. No acute extra-axial fluid collections visualized. No evidence of significant mass effect within the brain.No CT findings to suggest an acute, large territorial infarct, however, small or early acute infarcts may not be visible on CT. VENTRICLES: No evidence of significant hydrocephalus. BONES/JOINTS: No acute fractures or other acute bony abnormality noted. SOFT TISSUES: No acute abnormality of the visualized soft tissues is seen. VASCULATURE: Atherosclerotic calcification. SINUSES: Visualized paranasal sinuses appear clear. MASTOID AIR CELLS: Mastoid air cells appear clear. OTHER FINDINGS: Overall, no significant interval change is seen since the prior exam. IMPRESSION: - No acute findings seen within the brain. - See above for remaining findings.
[2017-06-04 23:40] VITALS: O2SAT 97
--- NOTE | 2017-06-05 07:31 | RAD ---
PROCEDURE: CHEST RADIOGRAPH, 1 VIEW HISTORY: SOB COMPARISON: Portable chest 06/02/2017. FINDINGS: LUNGS: Inspiratory volume appears diminished somewhat. Nevertheless, no airspace disease appreciated bilaterally. PLEURA: No pneumothorax or pleural fluid seen. CARDIOVASCULAR: Cardiac silhouette appears accentuated, potentially by diminished inspiratory volume. Interval mild cardiomegaly not excluded. No pulmonary vascular congestion however. OSSEOUS STRUCTURES: No significant abnormalities. VISUALIZED UPPER ABDOMEN: Normal. OTHER FINDINGS: None. IMPRESSION: Borderline cardiomegaly. Cardiac silhouette may be accentuated by diminished inspiratory volume. Clinically correlate further. No infiltrate. No pulmonary vascular derangement appreciated.
--- NOTE | 2017-06-07 22:03 | CARD ---
APPROVED REPORT EKG Measurement Heart [id number] <Conclusion> Normal sinus rhythm Possible Left atrial enlargement Possible Inferior infarct, age undetermined Possible Anterior infarct, age undetermined Abnormal ECG
== END 2017-06-04 21:27 | disposition home or self-care (01) ==
LOC: C.ER 19:37
DX: F41.9 Anxiety disorder, unspecified (principal); H53.9 Unspecified visual disturbance; E03.9 Hypothyroidism, unspecified; E78.00 Pure hypercholesterolemia, unspecified; I12.9 Hypertensive chronic kidney disease with stage 1 through stage 4 chronic kidney disease, or unspecified chronic kidney disease; N18.9 Chronic kidney disease, unspecified; I25.10 Atherosclerotic heart disease of native coronary artery without angina pectoris

== ENCOUNTER 2018-05-04 12:05 | Inpatient (IN) | payer MEDICARE, MEDICAID ==
[2018-05-04 12:05] VITALS: BMI 33.4
--- NOTE | 2018-05-04 12:50 | C.PDOC ---
History Of Present Illness 62 y/o male,w/ PMhx of diabetes, HTN, and renal transplant, presents to the ER complaining of fever, cough, congestion, and body aches which have been present for the past 3 days. Patient denies having CP,SOB, nausea, vomiting, and a bdominal pain. Time Seen by Provider: 05/04/18 12:38 Chief Complaint (Nursing): Cough, Cold, Congestion History Per: Patient History/Exam Limitations: no limitations Onset/Duration Of Symptoms: Days Current Symptoms Are (Timing): Still Present Severity: Moderate Past Medical History Reviewed: Historical Data, Nursing Documentation, Vital Signs Vital Signs: Last Vital Signs Temp 94.4 F L 05/04/18 12:23 Pulse 76 05/04/18 12:23 Resp 20 05/04/18 12:23 BP 109/56 L 05/04/18 12:23 Pulse Ox 97 05/04/18 12:23 - Medical History PMH: Anemia, CAD, Diabetes, Gastritis, HTN, Hypercholesterolemia, Hypothyroidism, Chronic Kidney Disease Other Surgeries: Hx of surgeries Family History: States: No Known Family Hx - Social History Hx Tobacco Use: No Hx Alcohol Use: No Hx Substance Use: No - Immunization History Hx Tetanus Toxoid Vaccination: No Hx Influenza Vaccination: Yes Hx Pneumococcal Vaccination: Yes Review Of Systems Except As Marked, All Systems Reviewed And Found Negative. Constitutional: Positive for: Fever, Chills Cardiovascular: Negative for: Chest Pain Respiratory: Positive for: Cough. Negative for: Shortness of Breath Gastrointestinal: Negative for: Nausea, Vomiting, Abdominal Pain Physical Exam - Physical Exam Appears: Non-toxic, No Acute Distress Skin: Normal Color, Warm, Dry Head: Atraumatic, Normacephalic Eye(s): bilateral: Normal Inspection Ear(s): Bilateral: Normal Nose: Normal Oral Mucosa: Moist Throat: Normal, No Erythema, No Exudate Neck: Supple Chest: Symmetrical Cardiovascular: Rhythm Regular Respiratory: Normal Breath Sounds, No Rales, No Rhonchi, No Wheezing Gastrointestinal/Abdominal: Normal Exam, Soft, No Tenderness, No Guarding, No Rebound Neurological/Psych: Oriented x3, Normal Speech ED Course And Treatment - Laboratory Results Result Diagrams: 05/04/18 13:23 05/04/18 13:23 ECG: Interpreted By Me, Viewed By Me ECG Rhythm: Sinus Rhythm ECG Interpretation: No Changes From Prior (no interval changes from prior) Interpretation Of ECG: NSR with non specific ST/T wave changes Rate From EC O2 Sat by Pulse Oximetry: 97 (RA) Pulse Ox Interpretation: Normal Medical Decision Making Medical Decision Making: renal transplant pt on immunosuppressants. mildly hypothermic on arrival. febrile at home- ro sepsis Plan: --Labs --ECG --CXR --Flu Swab --Rapid Strep Test xr neg but empiric antibitoics given as pt febrile on immunsupressants. noted cr. paged dr bernabe pending call back. dr bernabe updated. will see pt. states cr baseline2. Disposition - Disposition Disposition: HOSPITALIZED Disposition Time: 17:39 Condition: GOOD - Clinical Impression Clinical Impression: Influenza-like illness, Viral disease, Acute kidney injury - Scribe Statement The provider has reviewed the documentation as recorded by the Scribe Alphonse Castellanos Provider Attestation: All medical record entries made by the Scribe were at my direction and personally dictated by me. I have reviewed the chart and agree that the record accurately reflects my personal performance of the history, physical exam, medical decision making, and the department course for this patient. I have also personally directed, reviewed, and agree with the discharge instructions and disposition. Decision To Admit - . Bed Request Type: Regular Admitting Physician: Mason Haines Patient Diagnosis: Influenza-like illness, Viral disease, Acute kidney injury
[2018-05-04 13:29] LABS: BASO % 0.7 % (0.0-2.0); EOS # 0.3 K/uL (0.0-0.7); EOS % 3.6 % (0.0-4.0); LYMPH # 0.6 K/uL (1.0-4.3); MEAN CORPUSCULAR HEMOGLOBIN 31.6 pg (27.0-31.0); MEAN CORPUSCULAR HGB CONC 33.2 g/dL (33.0-37.0); MEAN PLATELET VOLUME 9.7 fL (7.2-11.7); MONO # 0.5 K/uL (0.0-0.8); MONO % 7.2 % (0.0-10.0); NEUT # 5.7 K/uL (1.8-7.0); NEUT % 80.5 % (50.0-75.0); PLATELET COUNT 166 K/uL (130-400); RBC 3.51 Mil/uL (4.40-5.90); RED CELL DISTRIBUTION WIDTH 13.7 % (11.5-14.5); WHITE BLOOD COUNT 7.1 K/uL (4.8-10.8)
[2018-05-04 13:30] LABS: HEMOGLOBIN 11.1 g/dL (12.0-18.0); MEAN CELL VOLUME 95.4 fL (80.0-94.0)
[2018-05-04 13:38] LABS: INR 1.3
[2018-05-04 13:38] LABS: VENOUS BLOOD GAS PCO2 43 mmHg (40-60); VENOUS BLOOD GAS PO2 34 mm/Hg (30-55); VENOUS BLOOD PH 7.38 (7.32-7.43)
[2018-05-04 13:48] LABS: INFLUENZA A B NEGATIVE FOR FLU A/B (NEGATIVE)
[2018-05-04 13:49] LABS: ALB/GLOB RATIO 1.9 (1.0-2.1); ALBUMIN 4.3 g/dL (3.5-5.0); CALCIUM 9.5 mg/dl (8.6-10.4)
[2018-05-04 13:59] LABS: BASOPHIL 1 % (0-2); EOSINOPHIL 4 % (0-4); MONOCYTE 5 % (0-10); NEUTROPHIL 80 % (50-75); PLATELET ESTIMATE NORMAL (NORMAL); TOTAL CELLS COUNTED 100
[2018-05-04 14:00] LABS: LYMPHOCYTE 10 % (20-40)
[2018-05-04 14:01] LABS: ANISOCYTOSIS SLIGHT; HYPOCHROMIC SLIGHT; POIKILOCYTOSIS SLIGHT; TROPONIN I 0.024 ng/mL (0.00-0.120)
--- NOTE | 2018-05-04 14:01 | RAD ---
Date of service: 05/04/2018 HISTORY: Chest pain COMPARISON: 06/04/2017. TECHNIQUE: Chest PA and lateral FINDINGS: LINES AND TUBES: None. LUNG AND PLEURA: The lungs are well inflated and clear. No pleural effusion or pneumothorax. HEART AND MEDIASTINUM: There is mild cardiomegaly. No aortic atherosclerotic calcifications present. The hilar and mediastinal contours are within normal limits. SKELETAL STRUCTURES: The bony structures are within normal limits for the patient's age. VISUALIZED UPPER ABDOMEN: Normal. OTHER FINDINGS: None. IMPRESSION: No active pulmonary disease.
[2018-05-04] MEDS ORDERED: Piperacill/Tazo 3.375gm in Dex 3.375 GM/50 ML BAG IVPB STA (14:04)
[2018-05-04] MEDS ORDERED: Sodium Chloride 0.9% 500 ML IV ONE (14:10)
[2018-05-04] MEDS ORDERED: Vancomycin 1 GM 1 GM/250 ML BAG IVPB ONE (14:44)
[2018-05-04] MEDS ORDERED: Piperacillin/Tazobact 3.375 gm 100 ML IVPB ONE (14:44)
--- NOTE | 2018-05-04 15:19 | CP.PCM.HP ---
"<Tien Cárdenas - Last Filed: 05/04/18 16:32> History of Present Illness - History of Present Illness History of Present Illness: This patient is a 62 year old male with a PMHx of of Diabetes Type II, Hypertension, CKD s/p renal transplant of right kidney (2013), CAD s/p Stent in proximal LAD, Hyperlipidemia, Hypothyroidism, and left eye blindness who presents with complaints of upper respiratory type symptoms including productive cough, subjective fever, and chest congestion x 3 days. Patient denies using any modalities to treat his symptoms; his fever resolved without any intervention. He does admit to sick contacts. He states he is compliant with his current medications. ROS POSITIVE: Subjective Fever, Productive Cough, Chest Congestion, Lightheadedness, Sick Conctacts NEGATIVES: Chills, Body Aches, SOB, Palpitations, Chest pain, abdominal pain, back pain, nausea, vomiting, changes in bowel habits, urinary frequency/urgency, difficulty urinating, hematuria, dysuria, changes in bowel habits. PMHx: Diabetes Type II, Hypertension, CKD s/p renal transplant of right kidney (2013), CAD s/p Stent in proximal LAD, Hyperlipidemia, Hypothyroidism, and left eye blindness who presents PSHx: Right Kidney Transplant (2013), Proximal LAD Stent, Left eye surgery Allergies: NKDA SocialHx: Denies tobacco, EtoH, or illicit drug use. Currently on disability. Independently preforms ADL's/IADL's Hos: See chart FamHx: Brother - Diabetes, Mother - Unspecified Lung Disease. Meds: Per APR. PMD: Dr. Stephenson Milling Machine Tender: Dr. Boothe Fire Engine Operator: Dr. Flynn Present on Admission - Present on Admission Any Indicators Present on Admission: No Review of Systems - Review of Systems All systems: reviewed and no additional remarkable complaints except (As per HPI) Review of Systems: As per HPI Past Patient History - Past Medical History & Family History Past Medical History?: Yes - Past Social History Smoking Status: Former Smoker - CARDIAC Hx Hypercholesterolemia: Yes Hx Hypertension: Yes - PULMONARY Hx Respiratory Disorders: No - NEUROLOGICAL Hx Neurological Disorder: No - HEENT Hx Blind: Yes (LEFT EYE DIABETIC RETINOPATHY) - RENAL Hx Chronic Kidney Disease: Yes - ENDOCRINE/METABOLIC Hx Hypothyroidism: Yes - HEMATOLOGICAL/ONCOLOGICAL Hx Anemia: Yes - INTEGUMENTARY Hx Dermatological Problems: No - MUSCULOSKELETAL/RHEUMATOLOGICAL Hx Musculoskeletal Disorders: No - GASTROINTESTINAL Hx Gastritis: Yes - GENITOURINARY/GYNECOLOGICAL Hx Genitourinary Disorders: No - PSYCHIATRIC Hx Substance Use: No - SURGICAL HISTORY Hx Surgeries: Yes Hx Kidney Transplant: Yes (04/01/13) Hx Vascular Surgery: Yes (LEFT ARM A/V FISTULA) - ANESTHESIA Hx Anesthesia: Yes Hx Anesthesia Reactions: No Hx Malignant Hyperthermia: No Meds Allergies/Adverse Reactions: Allergies Allergy/AdvReac Type Severity Reaction Status Date / Time No Known Allergies Allergy Verified 05/04/18 12:26 Physical Exam - Constitutional Appears: Well, Non-toxic, No Acute Distress - Head Exam Head Exam: ATRAUMATIC, NORMAL INSPECTION, NORMOCEPHALIC - Eye Exam Eye Exam: EOMI, Normal appearance. absent: Scleral icterus - ENT Exam ENT Exam: Mucous Membranes Moist - Neck Exam Neck exam: Positive for: Normal Inspection. Negative for: Lymphadenopathy - Respiratory Exam Respiratory Exam: Decreased Breath Sounds (Lower Lung Bases ), Clear to Auscultation Bilateral, NORMAL BREATHING PATTERN. absent: Accessory Muscle Use, Rales, Rhonchi, Wheezes, Stridor - Cardiovascular Exam Cardiovascular Exam: RRR, +S1, +S2. absent: Diastolic murmur, Systolic Murmur - GI/Abdominal Exam GI & Abdominal Exam: Normal Bowel Sounds, Soft. absent: Rebound, Tenderness - Extremities Exam Extremities exam: Positive for: normal capillary refill, normal inspection. Negative for: pedal edema - Back Exam Back exam: absent: CVA tenderness (L), CVA tenderness (R) - Neurological Exam Neurological exam: Alert, Oriented x3 - Psychiatric Exam Psychiatric exam: Normal Affect, Normal Mood - Skin Skin Exam: Dry, Intact, Normal Color, Warm Additional comments: Erythema in chest wall (Chronic) scar on left forearm Results - Vital Signs Recent Vital Signs: Last Vital Signs Temp 94.4 F L 05/04/18 12:23 Pulse 76 05/04/18 12:23 Resp 20 05/04/18 12:23 BP 109/56 L 05/04/18 12:23 Pulse Ox 97 05/04/18 13:25 - Labs Result Diagrams: 05/04/18 13:23 05/04/18 13:23 Labs: Laboratory Results - last 24 hr 05/04/18 05/04/18 05/04/18 13:23 13:23 13:23 WBC 7.1 RBC 3.51 L Hgb 11.1 L D Hct 33.5 L MCV 95.4 H D MCH 31.6 H MCHC 33.2 RDW 13.7 Plt Count 166 MPV 9.7 Neut % (Auto) 80.5 H Lymph % (Auto) 8.0 L [place] % (Auto) 7.2 Eos % (Auto) 3.6 Baso % (Auto) 0.7 Neut # (Auto) 5.7 Lymph # (Auto) 0.6 L [place] # (Auto) 0.5 Eos # (Auto) 0.3 Baso # (Auto) 0.0 Neutrophils % (Manual) 80 H Lymphocytes % (Manual) 10 L Monocytes % (Manual) 5 Eosinophils % (Manual) 4 Basophils % (Manual) 1 Platelet Estimate Normal Hypochromasia (manual) Slight Poikilocytosis (manual Slight Anisocytosis (manual) Slight PT 14.0 H INR 1.3 APTT 30 pO2 VBG pH VBG pCO2 VBG HCO3 VBG Total CO2 VBG O2 Sat (Calc) VBG Base Excess VBG Potassium Glucose Lactate Sodium Potassium Chloride Carbon Dioxide Anion Gap BUN Creatinine Est GFR ( Amer) Est GFR (Non-Af Amer) Random Glucose Calcium Total Bilirubin AST ALT Alkaline Phosphatase Troponin I Total Protein Albumin Globulin Albumin/Globulin Ratio Venous Blood Potassium Influenza Typ A,B (EIA) Negative for flu a/b Grp A Beta Strep Ag Negative 05/04/18 05/04/18 13:23 13:33 WBC RBC Hgb Hct MCV MCH MCHC RDW Plt Count MPV Neut % (Auto) Lymph % (Auto) [place] % (Auto) Eos % (Auto) Baso % (Auto) Neut # (Auto) Lymph # (Auto) [place] # (Auto) Eos # (Auto) Baso # (Auto) Neutrophils % (Manual) Lymphocytes % (Manual) Monocytes % (Manual) Eosinophils % (Manual) Basophils % (Manual) Platelet Estimate Hypochromasia (manual) Poikilocytosis (manual Anisocytosis (manual) PT INR APTT pO2 34 VBG pH 7.38 VBG pCO2 43 VBG HCO3 24.0 VBG Total CO2 26.7 VBG O2 Sat (Calc) 71.0 H VBG Base Excess 0.0 VBG Potassium 4.3 Glucose 180 H Lactate 0.8 Sodium 137 136.0 Potassium 4.5 Chloride 101 106.0 Carbon Dioxide 27 Anion Gap 13 BUN 51 H Creatinine 3.5 H Est GFR ( Amer) 22 Est GFR (Non-Af Amer) 18 Random Glucose 177 H D Calcium 9.5 Total Bilirubin 0.5 AST 41 ALT 28 Alkaline Phosphatase 47 Troponin I 0.0240 Total Protein 6.6 Albumin 4.3 Globulin 2.3 Albumin/Globulin Ratio 1.9 Venous Blood Potassium 4.3 Influenza Typ A,B (EIA) Grp A Beta Strep Ag Assessment & Plan - Assessment and Plan (Free Text) Assessment: 62 year old male with a PMHx of of Diabetes Type II, Hypertension, CKD s/p renal transplant of right kidney (2013), CAD s/p Stent in proximal LAD, Hyperlipidemia, Hypothyroidism, and left eye blindness who presents with complaints of upper respiratory type symptoms including productive cough, subjective fever, and chest congestion x 3 days. Found to have elevated Cr during workup. Admitted for evaluation and treatment of acute on chronic kidney injury and URI. Plan: Acute on Chronic Renal Failure/Hx of Renal Transplant Cr. 3.6 on Admission Ddx: Infection, vs Pre-Renal, vs Chronic Rejection Consults: Dr. Boothe, Recs Appreciated Renal US (Admission): F/U READ --Renally dose medications --Avoid Nephrotoxic Agents Mgmt: NS @ 70mls/Hr. Tacrolimus 1mg, 2tabs QAM/1tab HS Myfortic 180mg Tabs, 2tabs PO BID (Patient may need to bring from home) Prednisone 5mg PO Daily URI/Subjective Fevers (Acute) Ddx: Viral URI, UTI, vs Kidney rejection VBG Lactate - WNL Temp 94.4-->98.3 CXR(Admission): No acute Disease Process Labs: UA | Urine Culture| Blood Culture | Sputum Culture | ProCal Mgmt: Zosyn 2.25 IVP Q8H Robitussin DM 10ml Q4H PRN for Cough Tylenol PRN for Fever HTN (Chronic) Mgmt: Cont. Home Meds Labetalol 300mg PO BID Lisinopril 20mg PO BID (Held due to MIGUEL) Chlorithiadone 25mg PO Daily Norvasc 10mg PO Daily CAD/Stent (Chronic) Mgmt: Cont. Home Meds Plavix 75mg Daily Aspirin 81 mg Daily Hyperlipidemia (Chronic) Mgmt: Cont. Home Meds not in formulary nor on list patient provided, but in MAR . Start Crestor 10mg PO HS Lucas 3 2 grams PO BID Hypothyroidism (Chronic) Mgmt: Cont. HOme Meds Levothyroxine 50mcg PO QAM Diabetes (Chronic) Mgmt: Insulin Aspart 10 units SC Before meals 3x Daily Lantus 22 Units SC HS Proph Lovenox 30 Protonix (GERD Hx) Renal Diet NS @ 70 Patient discussed with Attending (Dr. Haines) Tien Cárdenas, PGY-2 <Mason Haines - Last Filed: 05/04/18 19:16> Results - Vital Signs Recent Vital Signs: Last Vital Signs Temp 97.8 F 05/04/18 17:39 Pulse 71 05/04/18 17:39 Resp 20 05/04/18 17:39 BP 136/64 05/04/18 17:39 Pulse Ox 97 05/04/18 18:00 - Labs Result Diagrams: 05/04/18 13:23 05/04/18 13:23 Labs: Laboratory Results - last 24 hr 05/04/18 05/04/18 05/04/18 13:23 13:23 13:23 WBC 7.1 RBC 3.51 L Hgb 11.1 L D Hct 33.5 L MCV 95.4 H D MCH 31.6 H MCHC 33.2 RDW 13.7 Plt Count 166 MPV 9.7 Neut % (Auto) 80.5 H Lymph % (Auto) 8.0 L [place] % (Auto) 7.2 Eos % (Auto) 3.6 Baso % (Auto) 0.7 Neut # (Auto) 5.7 Lymph # (Auto) 0.6 L [place] # (Auto) 0.5 Eos # (Auto) 0.3 Baso # (Auto) 0.0 Neutrophils % (Manual) 80 H Lymphocytes % (Manual) 10 L Monocytes % (Manual) 5 Eosinophils % (Manual) 4 Basophils % (Manual) 1 Platelet Estimate Normal Hypochromasia (manual) Slight Poikilocytosis (manual Slight Anisocytosis (manual) Slight PT 14.0 H INR 1.3 APTT 30 pO2 VBG pH VBG pCO2 VBG HCO3 VBG Total CO2 VBG O2 Sat (Calc) VBG Base Excess VBG Potassium Glucose Lactate Sodium Potassium Chloride Carbon Dioxide Anion Gap BUN Creatinine Est GFR ( Amer) Est GFR (Non-Af Amer) Random Glucose Calcium Total Bilirubin AST ALT Alkaline Phosphatase Troponin I Total Protein Albumin Globulin Albumin/Globulin Ratio Venous Blood Potassium Influenza Typ A,B (EIA) Negative for flu a/b Grp A Beta Strep Ag Negative 05/04/18 05/04/18 13:23 13:33 WBC RBC Hgb Hct MCV MCH MCHC RDW Plt Count MPV Neut % (Auto) Lymph % (Auto) [place] % (Auto) Eos % (Auto) Baso % (Auto) Neut # (Auto) Lymph # (Auto) [place] # (Auto) Eos # (Auto) Baso # (Auto) Neutrophils % (Manual) Lymphocytes % (Manual) Monocytes % (Manual) Eosinophils % (Manual) Basophils % (Manual) Platelet Estimate Hypochromasia (manual) Poikilocytosis (manual Anisocytosis (manual) PT INR APTT pO2 34 VBG pH 7.38 VBG pCO2 43 VBG HCO3 24.0 VBG Total CO2 26.7 VBG O2 Sat (Calc) 71.0 H VBG Base Excess 0.0 VBG Potassium 4.3 Glucose 180 H Lactate 0.8 Sodium 137 136.0 Potassium 4.5 Chloride 101 106.0 Carbon Dioxide 27 Anion Gap 13 BUN 51 H Creatinine 3.5 H Est GFR ( Amer) 22 Est GFR (Non-Af Amer) 18 Random Glucose 177 H D Calcium 9.5 Total Bilirubin 0.5 AST 41 ALT 28 Alkaline Phosphatase 47 Troponin I 0.0240 Total Protein 6.6 Albumin 4.3 Globulin 2.3 Albumin/Globulin Ratio 1.9 Venous Blood Potassium 4.3 Influenza Typ A,B (EIA) Grp A Beta Strep Ag Attending/Attestation - Attestation I have personally seen and examined this patient.: Yes I have fully participated in the care of the patient.: Yes I have reviewed all pertinent clinical information: Yes Notes (Text): 05/04/18 19:12 Medical attending: Patient was seen and examined by me. Agree with the above note by the resident The patient was seen and examined by me with the medical pathologist The patient has on lab work an elevated creatine above his baseline - we will check an ultrasound as well as do slow IVF at this time. Continue his myfortic, tacrolimus, and prednisone as before With reguards to his coughing and heavy phelgm and fevers will check influenza, sputum culture, blood cultures as well He will be placed on IV abx even though WBC is normal because he needs to take quite a bit of transplant medication which maybe decreasing his immune system thank you Mason Haines"
[2018-05-04] MEDS ORDERED: Sodium Chloride 0.9% 1,000 ML IV SCH (16:00)
[2018-05-04] MEDS: Sodium Chloride 0.9% 1,000 ML IV SCH (17:04)
--- NOTE | 2018-05-04 17:07 | US ---
Date of service: 05/04/2018 PROCEDURE: Ultrasound of the Kidneys HISTORY: MIGUEL, Hx of Renal Transplant (R) COMPARISON: None available. TECHNIQUE: Sonogram of the kidneys. FINDINGS: RIGHT KIDNEY: Measures: 7.7 cm. Atrophic echogenic [place] kidney. No stone, solid mass lesion or hydronephrosis visualized. LEFT KIDNEY: Measures: 8.8 cm. Atrophic echogenic [place] kidney. No stone, solid mass lesion or hydronephrosis visualized. OTHER FINDINGS: There is a right lower quadrant renal transplant which measures 11.3 x 5.4 x 5.4 cm. There is normal echogenicity and contour. No hydronephrosis or nephrolithiasis. IMPRESSION: Normal sonographic appearance of a right lower quadrant renal transplant without hydronephrosis or nephrolithiasis.
[2018-05-04] MEDS ORDERED: guaiFENesin DM 200 mg-20 mg/10 ml UD PO PRN (17:26)
[2018-05-04 17:40] VITALS: RESP 20
[2018-05-04] MEDS ORDERED: MYCOPHENOLATE SODIUM PO SCH (18:00)
[2018-05-04] MEDS: Omega-3-Acid Ethyl Esters 1 GM Cap PO SCH (18:49)
[2018-05-04] MEDS: Labetalol Hydrochloride 300 mg Tab PO SCH (18:50)
[2018-05-04] MEDS: (Lantus) Insulin Glargine, Recombinant SC SCH (21:57)
[2018-05-04] MEDS ORDERED: Omega-3-Acid Ethyl Esters 1 GM Cap PO SCH (22:00)
[2018-05-04] MEDS ORDERED: Rosuvastatin Calcium 2.5 mg Tab PO SCH (22:00)
[2018-05-04] MEDS: Piperacillin/Tazobact 2.25 GM in Sodium Chloride 100 ML IVPB SCH (22:00)
[2018-05-04 22:58] LABS: URINE BILIRUBIN NEGATIVE (NEGATIVE); URINE BLOOD NEGATIVE (NEGATIVE); URINE CLARITY Clear (Clear); URINE COLOR Yellow (YELLOW); URINE GLUCOSE (UA) 1+ mg/dL (Normal); URINE LEUKOCYTE ESTERASE NEG Leu/uL (Negative); URINE PROTEIN NEGATIVE (NEGATIVE); URINE UROBILINOGEN NORMAL mg/dL (0.2-1.0)
[2018-05-05] MEDS: Piperacillin/Tazobact 2.25 GM in Sodium Chloride 100 ML IVPB SCH ×3 (05:34→21:39)
[2018-05-05] MEDS: Sodium Chloride 0.9% 1,000 ML IV SCH (06:41)
[2018-05-05 07:40] LABS: BASO % 0.7 % (0.0-2.0); EOS # 0.2 K/uL (0.0-0.7); EOS % 4.9 % (0.0-4.0); HEMOGLOBIN 11.8 g/dL (12.0-18.0); LYMPH # 0.4 K/uL (1.0-4.3); LYMPH % 8.8 % (20.0-40.0); MEAN CELL VOLUME 95.6 fL (80.0-94.0); MEAN CORPUSCULAR HEMOGLOBIN 32.3 pg (27.0-31.0); MEAN CORPUSCULAR HGB CONC 33.7 g/dL (33.0-37.0); MEAN PLATELET VOLUME 9.3 fL (7.2-11.7); MONO # 0.4 K/uL (0.0-0.8); NEUT # 3.5 K/uL (1.8-7.0); NEUT % 76.6 % (50.0-75.0); PLATELET COUNT 175 K/uL (130-400); RBC 3.67 Mil/uL (4.40-5.90); RED CELL DISTRIBUTION WIDTH 13.8 % (11.5-14.5); WHITE BLOOD COUNT 4.6 K/uL (4.8-10.8)
[2018-05-05 07:41] LABS: ALB/GLOB RATIO 1.8 (1.0-2.1); ALBUMIN 4.3 g/dL (3.5-5.0); CALCIUM 9.1 mg/dl (8.6-10.4)
[2018-05-05 09:03] LABS: BASOPHIL 1 % (0-2); EOSINOPHIL 8 % (0-4); LYMPHOCYTE 8 % (20-40); MONOCYTE 4 % (0-10); NEUTROPHIL 79 % (50-75); PLATELET ESTIMATE NORMAL (NORMAL); TOTAL CELLS COUNTED 100
--- NOTE | 2018-05-05 09:11 | CP.PCM.PN ---
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 Denies CP SOB FC NV, understand plan to observe for normalization of Cr before dc home. Objective - Vital Signs/Intake and Output Vital Signs (last 24 hours): Temp Pulse Resp BP Pulse Ox 98.4 F 78 20 132/72 94 L 05/05/18 00:00 05/05/18 00:00 05/05/18 00:00 05/05/18 00:00 05/05/18 00:00 Intake and Output: 05/05/18 05/05/18 06:59 18:59 Intake Total 680 Output Total 700 Balance -20 - Medications Medications: Current Medications Acetaminophen (Tylenol 325mg Tab) 650 mg PO Q6 PRN PRN Reason: Fever >100.4 F Amlodipine Besylate (Norvasc) 10 mg PO DAILY [facility] Aspirin (Ecotrin) 81 mg PO DAILY [facility] Chlorthalidone (Hygroton) 25 mg PO DAILY [facility] Clopidogrel Bisulfate (Plavix) 75 mg PO DAILY [facility] Enoxaparin Sodium (Lovenox) 30 mg SC DAILY [facility] Guaifenesin/Dextromethorphan (Robitussin Dm) 10 ml PO Q4H PRN PRN Reason: Cough and congestion Last Admin: 05/05/18 03:49 Dose: 10 ml Home Med (Mycophenolate Sodium [Myfortic]) 2 tab PO BID [facility] Sodium Chloride (Sodium Chloride 0.9%) 1,000 mls @ 70 mls/hr IV .[id number] [facility] Last Admin: 05/05/18 06:41 Dose: Not Given Piperacillin Sod/Tazobactam (Sod 2.25 gm/ Sodium Chloride) 100 mls @ 200 mls/hr IVPB Q8H [facility]; Protocol Last Admin: 05/05/18 05:34 Dose: 200 mls/hr Insulin Aspart (Novolog) 10 unit SC ACTID [facility] Insulin Glargine (Lantus) 22 unit SC HS [facility] Last Admin: 03/21/19 21:57 Dose: 22 u Labetalol HCl (Normodyne) 300 mg PO BID [facility] Last Admin: 05/04/18 18:50 Dose: 300 mg Levothyroxine Sodium (Synthroid) 50 mcg PO Q24H [facility] Lisinopril (Zestril) 20 mg PO DAILY [facility] Minoxidil (Minoxidil) 2.5 mg PO BID [facility] Last Admin: 05/04/18 18:50 Dose: 2.5 mg Multivitamins (Hexavitamin) 1 tab PO DAILY [facility] Pxzmi-1-Yhvb Ethyl Esters (Lovaza) 2 gm PO BID [facility] Last Admin: 05/04/18 18:49 Dose: 2 gm Pantoprazole Sodium (Protonix Ec Tab) 40 mg PO DAILY [facility] Pneumococcal Polyvalent Vaccine (Pneumovax 23 Vaccine) 0.5 ml IM .ONCE ONE Stop: 05/07/18 10:01 Prednisone (Prednisone Tab) 5 mg PO DAILY [facility] Rosuvastatin Calcium (Crestor) 10 mg PO HS [facility] Last Admin: 05/04/18 21:57 Dose: 10 mg Tacrolimus (Prograf Cap) 1 mg PO [facility] Last Admin: 05/04/18 21:56 Dose: 1 mg Tacrolimus (Prograf Cap) 2 mg PO QAM [facility] - Labs Labs: 05/05/18 07:15 05/05/18 07:15 PT 14.0 SECONDS (9.7-12.2) H 05/04/18 13:23 INR 1.3 05/04/18 13:23 APTT 30 SECONDS (21-34) 05/04/18 13:23 - Additional Findings Additional findings: - Constitutional Appears: Well, Non-toxic, No Acute Distress - Head Exam Head Exam: ATRAUMATIC, NORMAL INSPECTION, NORMOCEPHALIC - Eye Exam Eye Exam: EOMI, Normal appearance. absent: Scleral icterus - ENT Exam ENT Exam: Mucous Membranes Moist - Neck Exam Neck exam: Positive for: Normal Inspection. Negative for: Lymphadenopathy - Respiratory Exam Respiratory Exam: Decreased Breath Sounds (Lower Lung Bases ), Clear to Auscultation Bilateral, NORMAL BREATHING PATTERN. absent: Accessory Muscle Use, Rales, Rhonchi, Wheezes, Stridor - Cardiovascular Exam Cardiovascular Exam: RRR, +S1, +S2. absent: Diastolic murmur, Systolic Murmur - GI/Abdominal Exam GI & Abdominal Exam: Normal Bowel Sounds, Soft. absent: Rebound, Tenderness - Extremities Exam Extremities exam: Positive for: normal capillary refill, normal inspection. Negative for: pedal edema - Back Exam Back exam: absent: CVA tenderness (L), CVA tenderness (R) - Neurological Exam Neurological exam: Alert, Oriented x3 - Psychiatric Exam Psychiatric exam: Normal Affect, Normal Mood - Skin Skin Exam: Dry, Intact, Normal Color, Warm Additional comments: Erythema in chest wall (Chronic) scar on left forearm Assessment and Plan - Assessment and Plan (Free Text) Assessment: 62 year old male with a PMHx of of Diabetes Type II, Hypertension, CKD s/p renal transplant of right kidney (2013), CAD s/p Stent in proximal LAD, Hyperlipidemia, Hypothyroidism, and left eye blindness who presents with complaints of upper respiratory type symptoms including productive cough, subj ective fever, and chest congestion x 3 days. Found to have elevated Cr during workup. Admitted for evaluation and treatment of acute on chronic kidney injury and URI. Plan: Acute on Chronic Renal Failure/Hx of Renal Transplant Cr. 3.6 on Admission- trending down today to 3.0 Ddx: Infection, vs Pre-Renal, vs Chronic Rejection Consults: Dr. Boothe, Recs Appreciated Renal US (Admission): F/U READ --Renally dose medications --Avoid Nephrotoxic Agents Mgmt: NS @ 70mls/Hr. Tacrolimus 1mg, 2tabs QAM/1tab HS Myfortic 180mg Tabs, 2tabs PO BID (Patient may need to bring from home) Prednisone 5mg PO Daily URI/Subjective Fevers (Acute) Ddx: Viral URI, UTI, vs Kidney rejection VBG Lactate - WNL CXR(Admission): No acute Disease Process Labs: UA | Urine Culture| Blood Culture | Sputum Culture | ProCal Mgmt: Zosyn 2.25 IVP Q8H Robitussin DM 10ml Q4H PRN for Cough Tylenol PRN for Fever f/u sputum cultures HTN (Chronic) Mgmt: Cont. Home Meds Labetalol 300mg PO BID Lisinopril 20mg PO BID (Held due to MIGUEL) Chlorithiadone 25mg PO Daily Norvasc 10mg PO Daily CAD/Stent (Chronic) Mgmt: Cont. Home Meds Plavix 75mg Daily Aspirin 81 mg Daily Hyperlipidemia (Chronic) Mgmt: Cont. Home Meds not in formulary nor on list patient provided, but in MAR . Start Crestor 10mg PO HS [place] 3 2 grams PO BID Hypothyroidism (Chronic) Mgmt: Cont. HOme Meds Levothyroxine 50mcg PO QAM Diabetes (Chronic) Mgmt: Insulin Aspart 10 units SC Before meals 3x Daily Lantus 22 Units SC HS Proph Heparing 5000u sc q8 Protonix (GERD Hx) Renal Diet NS @ 70 DISPO: pending Cr improvent, once normalized to baseline- d/c home likely possible if sputums also neg Patient discussed with Attending (Dr. Haines) <Mason Haines H - Last Filed: 05/05/18 15:09> Objective - Vital Signs/Intake and Output Vital Signs (last 24 hours): Temp Pulse Resp BP Pulse Ox 97.7 F 72 20 158/72 H 96 05/05/18 07:41 05/05/18 07:41 05/05/18 07:41 05/05/18 07:41 05/05/18 07:41 Intake and Output: 05/05/18 05/05/18 06:59 18:59 Intake Total 680 Output Total 700 Balance -20 - Medications Medications: Current Medications Acetaminophen (Tylenol 325mg Tab) 650 mg PO Q6 PRN PRN Reason: Fever >100.4 F Amlodipine Besylate (Norvasc) 10 mg PO DAILY [facility] Last Admin: 05/05/18 10:12 Dose: 10 mg Aspirin (Ecotrin) 81 mg PO DAILY [facility] Last Admin: 05/05/18 10:03 Dose: 81 mg Clopidogrel Bisulfate (Plavix) 75 mg PO DAILY [facility] Last Admin: 05/05/18 10:14 Dose: 75 mg Guaifenesin/Dextromethorphan (Robitussin Dm) 10 ml PO Q4H PRN PRN Reason: Cough and congestion Last Admin: 05/05/18 03:49 Dose: 10 ml Heparin Sodium (Porcine) (Heparin) 5,000 units SC Q8 [facility] Last Admin: 05/05/18 13:14 Dose: 5,000 units Home Med (Mycophenolate Sodium [Myfortic]) 2 tab PO BID [facility] Sodium Chloride (Sodium Chloride 0.9%) 1,000 mls @ 70 mls/hr IV .[id number] [facility] Last Admin: 05/05/18 06:41 Dose: Not Given Piperacillin Sod/Tazobactam (Sod 2.25 gm/ Sodium Chloride) 100 mls @ 200 mls/hr IVPB Q8H [facility]; Protocol Last Admin: 05/05/18 13:14 Dose: 200 mls/hr Insulin Aspart (Novolog) 10 unit SC ACTID [facility] Last Admin: 05/05/18 13:04 Dose: Not Given Insulin Glargine (Lantus) 22 unit SC HS [facility] Last Admin: 05/04/18 21:57 Dose: 22 u Labetalol HCl (Normodyne) 300 mg PO BID [facility] Last Admin: 05/05/18 10:11 Dose: 300 mg Levothyroxine Sodium (Synthroid) 50 mcg PO Q24H [facility] Last Admin: 05/05/18 09:49 Dose: 50 mcg Minoxidil (Minoxidil) 2.5 mg PO BID [facility] Last Admin: 05/05/18 10:10 Dose: 2.5 mg Multivitamins (Hexavitamin) 1 tab PO DAILY [facility] Last Admin: 05/05/18 10:04 Dose: 1 tab Kxgly-5-Jygl Ethyl Esters (Lovaza) 2 gm PO BID [facility] Last Admin: 05/05/18 10:07 Dose: 2 gm Pantoprazole Sodium (Protonix Ec Tab) 40 mg PO DAILY [facility] Last Admin: 05/05/18 10:18 Dose: 40 mg Pneumococcal Polyvalent Vaccine (Pneumovax 23 Vaccine) 0.5 ml IM .ONCE ONE Stop: 05/07/18 10:01 Prednisone (Prednisone Tab) 5 mg PO DAILY [facility] Last Admin: 05/05/18 10:16 Dose: 5 mg Rosuvastatin Calcium (Crestor) 10 mg PO [facility] Last Admin: 05/04/18 21:57 Dose: 10 mg Tacrolimus (Prograf Cap) 1 mg PO HS [facility] Last Admin: 05/04/18 21:56 Dose: 1 mg [facility]rolimus (Prograf Cap) [facility] Last Admin: 05/05/18 10:17 Dose: 2 mg - Labs Labs: 05/05/18 07:15 05/05/18 07:15 PT 14.0 SECONDS (9.7-12.2) H 05/04/18 13:23 INR 1.3 05/04/18 13:23 APTT 30 SECONDS (21-34) 05/04/18 13:23 Attending/Attestation - Attestation I have personally seen and examined this patient.: Yes I have fully participated in the care of the patient.: Yes I have reviewed all pertinent clinical information, including history, physical exam and plan: Yes Notes (Text): 05/05/18 15:06 Medical attending: Patient was seen and examined by me. Agree with the above note by the resident The patient was sitting up in bed eating and not in any acute distress The patient reported a lot of his coughing and shortness of breath was better than yesterday He was not yet able to produce a sputum culture He remains on the IV Zosyn renal dosing at this time The patient's creatine decreased to 3.0 and the renal ultrasound did not show hydronephrosis So at this moment continue with the slow IVF 70 cc and also with the tacrolimus, mycofentil and predinsone We don't have an accurate I and Os reading however he tells me urinating was fine this morning and yesterday night Mason Haines"
[2018-05-05] MEDS: Levothyroxine 50 MCG TAB PO SCH (09:49)
[2018-05-05] MEDS ORDERED: Enoxaparin 30 mg Syringe SC SCH (10:00)
[2018-05-05] MEDS: (Novolog) Insulin Aspart, Recombinant 100 u/ml 10 ml vial SC SCH ×4 (10:00→18:01)
[2018-05-05] MEDS: Multiple Vitamins Tab PO SCH (10:04)
[2018-05-05] MEDS: Omega-3-Acid Ethyl Esters 1 GM Cap PO SCH ×2 (10:07→18:05)
[2018-05-05] MEDS: Labetalol Hydrochloride 300 mg Tab PO SCH ×2 (10:11→18:01)
[2018-05-05] MEDS: Pantoprazole 40 mg EC Tab PO SCH (10:18)
[2018-05-05] MEDS ORDERED: Dextrose 50% SYRINGE Inj (50 ml) IV STA (11:29)
[2018-05-05] MEDS ORDERED: Dextrose 50% SYRINGE Inj (50 ml) ONE (11:29)
--- NOTE | 2018-05-05 13:47 | CP.PCM.CON ---
History of Present Illness - History of Present Illness History of Present Illness: History of Present Illness: This patient is a 62 year old male with a PMHx of of Diabetes Type II, Hypertension, CKD s/p renal transplant of right kidney (2013), CAD s/p Stent in proximal LAD, Hyperlipidemia, Hypothyroidism, and left eye blindness who presents with complaints of upper respiratory type symptoms including productive cough, subjective fever, and chest congestion x 3 days. Patient denies using any modalities to treat his symptoms; his fever resolved without any intervention. He does admit to sick contacts. He states he is compliant with his current medications. ROS POSITIVE: Subjective Fever, Productive Cough, Chest Congestion, Lightheadedness, Sick Conctacts NEGATIVES: Chills, Body Aches, SOB, Palpitations, Chest pain, abdominal pain, back pain, nausea, vomiting, changes in bowel habits, urinary frequency/urgency, difficulty urinating, hematuria, dysuria, changes in bowel habits. PMHx: Diabetes Type II, Hypertension, CKD s/p renal transplant of right kidney (2013)- stage 3, CAD s/p Stent in proximal LAD, Hyperlipidemia, Hypothyroidism, and left eye blindness PSHx: Right Kidney Transplant (2013), Proximal LAD Stent, Left eye surgery Allergies: NKDA SocialHx: Denies tobacco, EtoH, or illicit drug use. Currently on disability. Independently preforms ADL's/IADL's Hos: See chart FamHx: Brother - Diabetes, Mother - Unspecified Lung Disease. Meds: Per APR. PMD: Dr. Stephenson Associate Merchandise Planner: Dr. Boothe Traffic Rate Analyst: Dr. Flynn Review of Systems - Constitutional Constitutional: Fatigue, Fever, Weakness - EENT Eyes: As Per HPI Ears: absent: As Per HPI, Decreased Hearing, Ear Discharge, Ear Pain, Tinnitus, Abnormal Hearing, Disequilibrium, Dizziness, Other Nose/Mouth/Throat: absent: As Per HPI, Epistaxis, Nasal Congestion, Nasal Discharge, Nasal Obstruction, Nasal Trauma, Nose Pain, Post Nasal Drip, Sinus Pain, Sinus Pressure, Bleeding Gums, Change in Voice, Dental Pain, Dry Mouth, Dysphagia, Halitosis, Hoarsness, Lip Swelling, Mouth Lesions, Mouth Pain, Odynophagia, Sore Throat, Throat Swelling, Tongue Swelling, Facial Pain, Neck Pain, Neck Mass, Other - Cardiovascular Cardiovascular: Dyspnea on Exertion - Respiratory Respiratory: Cough - Gastrointestinal Gastrointestinal: absent: As Per HPI, Abdominal Pain, Belching, Bloating, Change in Bowel Habits, Change in Stool Character, Coffee Ground Emesis, Constipation, Cramping, Diarrhea, Dyspepsia, Dysphagia, Early Satiety, Excessive Flatus, Fecal Incontinence, Heartburn, Hematemesis, Hematochezia, Loose Stools, Melena, Nausea, Odynophagia, Temesmus, Vomiting, Other - Genitourinary Genitourinary: Urinary Frequency - Musculoskeletal Musculoskeletal: Muscle Cramps, Muscle Weakness, Myalgias - Integumentary Integumentary: absent: As Per HPI, Acne, Alopecia, Bleeding Lesions, Change in Hair, Change in Nails, Change in Pigmentation, Changing Lesions, Dry Skin, Erythema, Furuncle, Hirsutism, Lesions, New Lesions, Non-Healing Lesions, Photosensitivity, Pruritus, Rash, Skin Pain, Skin Ulcer, Sores, Striae, Swelling, Unusual Bruising, Wounds, Jaundice, Other - Neurological Neurological: absent: As Per HPI, Abnormal Gait, Abnormal Hearing, Abnormal Movements, Abnormal Speech, Behavioral Changes, Burning Sensations, Confusion, Convulsions, Disequilibrium, Dizziness, Numbness, Focal Weakness, Frequent Falls, Headaches, Lack of Coordination, Loss of Vision, Memory Loss, Paresthesias, Radicular Pain, Restless Legs, Sensory Deficit, Syncope, Tingling, Tremor, Vertigo, Weakness, Other Visual Disturbances, Other Past Patient History - Past Medical History & Family History Past Medical History?: Yes Past Family History: Reviewed and not pertinent - Past Social History Smoking Status: Former Smoker Chewing Tobacco Use: No Cigar Use: No Alcohol: None Drugs: Denies Home Situation {Lives}: With Family - CARDIAC Hx Hypercholesterolemia: Yes Hx Hypertension: Yes - PULMONARY Hx Respiratory Disorders: No - NEUROLOGICAL Hx Neurological Disorder: No - HEENT Hx Blind: Yes (LEFT EYE DIABETIC RETINOPATHY) - RENAL Hx Chronic Kidney Disease: Yes - ENDOCRINE/METABOLIC Hx Hypothyroidism: Yes - HEMATOLOGICAL/ONCOLOGICAL Hx Anemia: Yes - INTEGUMENTARY Hx Dermatological Problems: No - MUSCULOSKELETAL/RHEUMATOLOGICAL Hx Falls: No - GASTROINTESTINAL Hx Gastritis: Yes - GENITOURINARY/GYNECOLOGICAL Hx Genitourinary Disorders: No - PSYCHIATRIC Hx Substance Use: No - SURGICAL HISTORY Hx Surgeries: Yes Hx Kidney Transplant: Yes (04/01/13) Hx Vascular Surgery: Yes (LEFT ARM A/V FISTULA) - ANESTHESIA Hx Anesthesia: Yes Hx Anesthesia Reactions: No Hx Malignant Hyperthermia: No Meds Allergies/Adverse Reactions: Allergies Allergy/AdvReac Type Severity Reaction Status Date / Time No Known Allergies Allergy Verified 05/04/18 12:26 - Medications Medications: Current Medications Acetaminophen (Tylenol 325mg Tab) 650 mg PO Q6 PRN PRN Reason: Fever >100.4 F Amlodipine Besylate (Norvasc) [address] [facility] Last Admin: 05/05/18 10:12 Dose: 10 mg Aspirin (Ecotrin) [address] [facility] Last Admin: 05/05/18 10:03 Dose: 81 mg Chlorthalidone (Hygroton) [address] [facility] Last Admin: 05/05/18 10:06 Dose: 25 mg Clopidogrel Bisulfate (Plavix) [address] [facility] Last Admin: 05/05/18 10:14 Dose: 75 mg Guaifenesin/Dextromethorphan (Robitussin Dm) 10 ml PO Q4H PRN PRN Reason: Cough and congestion Last Admin: 05/05/18 03:49 Dose: 10 ml Heparin Sodium (Porcine) (Heparin) 5,[address] [facility] Last Admin: 05/05/18 13:14 Dose: 5,000 units Home Med (Mycophenolate Sodium [Myfortic]) [address] [facility] Sodium Chloride (Sodium Chloride 0.9%) 1,000 mls @ 70 mls/hr IV .[id number] [facility] Last Admin: 05/05/18 06:41 Dose: Not Given Piperacillin Sod/Tazobactam (Sod 2.25 gm/ Sodium Chloride) 100 mls @ 200 mls/hr IVPB Q8H [facility]; Protocol Last Admin: 05/05/18 13:14 Dose: 200 mls/hr Insulin Aspart (Novolog) [address] [facility] Last Admin: 05/05/18 13:04 Dose: Not Given Insulin Glargine (Lantus) [address] [facility] Last Admin: 05/04/18 21:57 Dose: 22 u Labetalol HCl (Normodyne) [address] [facility] Last Admin: 05/05/18 10:11 Dose: 300 mg Levothyroxine Sodium (Synthroid) [address] [facility] Last Admin: 05/05/18 09:49 Dose: 50 mcg Lisinopril (Zestril) [address] [facility] Minoxidil (Minoxidil) 2.[address] [facility] Last Admin: 05/05/18 10:10 Dose: 2.5 mg Multivitamins (Hexavitamin) [address] [facility] Last Admin: 05/05/18 10:04 Dose: 1 tab Pyphd-0-Gjfh Ethyl Esters (Lovaza) [address] [facility] Last Admin: 05/05/18 10:07 Dose: 2 gm Pantoprazole Sodium (Protonix Ec Tab) [address] [facility] Last Admin: 05/05/18 10:18 Dose: 40 mg Pneumococcal Polyvalent Vaccine (Pneumovax 23 Vaccine) 0.5 ml IM .ONCE ONE Stop: 05/07/18 10:01 Prednisone (Prednisone Tab) [address] [facility] Last Admin: 05/05/18 10:16 Dose: 5 mg Rosuvastatin Calcium (Crestor) 10 mg PO [facility] Last Admin: 05/04/18 21:57 Dose: 10 mg Tacrolimus (Prograf Cap) 1 mg PO [facility] Last Admin: 05/04/18 21:56 Dose: 1 mg Tacrolimus (Prograf Cap) [facility] [place] Last Admin: 05/05/18 10:17 Dose: 2 mg Physical Exam - Constitutional Appears: No Acute Distress, Chronically Ill - Head Exam Head Exam: ATRAUMATIC, NORMAL INSPECTION - Eye Exam Eye Exam: EOMI, Normal appearance - Neck Exam Neck exam: Positive for: Normal Inspection. Negative for: Tenderness - Respiratory Exam Respiratory Exam: Clear to Auscultation Bilateral, NORMAL BREATHING PATTERN - Cardiovascular Exam Cardiovascular Exam: REGULAR RHYTHM, +S1 - GI/Abdominal Exam GI & Abdominal Exam: Soft. absent: Tenderness - Extremities Exam Extremities exam: Negative for: tenderness - Neurological Exam Neurological exam: Alert, CN II-XII Intact - Skin Skin Exam: Dry, Warm Results - Vital Signs Recent Vital Signs: Last Vital Signs Temp 97.7 F 05/05/18 07:41 Pulse 72 05/05/18 07:41 Resp 20 05/05/18 07:41 BP 158/72 H 05/05/18 07:41 Pulse Ox 96 05/05/18 07:41 - Labs Result Diagrams: 05/05/18 07:15 05/05/18 07:15 Labs: Laboratory Results - last 24 hr 05/04/18 05/04/18 05/04/18 13:23 13:23 13:23 WBC RBC Hgb Hct MCV MCH MCHC RDW Plt Count MPV Neut % (Auto) Lymph % (Auto) [place] % (Auto) Eos % (Auto) Baso % (Auto) Neut # (Auto) Lymph # (Auto) [place] # (Auto) Eos # (Auto) Baso # (Auto) Neutrophils % (Manual) 80 H Lymphocytes % (Manual) 10 L Monocytes % (Manual) 5 Eosinophils % (Manual) 4 Basophils % (Manual) 1 Platelet Estimate Normal Hypochromasia (manual) Slight Poikilocytosis (manual Slight Anisocytosis (manual) Slight Sodium 137 Potassium 4.5 Chloride 101 Carbon Dioxide 27 Anion Gap 13 BUN 51 H Creatinine 3.5 H Est GFR ( Amer) 22 Est GFR (Non-Af Amer) 18 POC Glucose (mg/dL) Random Glucose 177 H D Calcium 9.5 Phosphorus Magnesium Total Bilirubin 0.5 AST 41 ALT 28 Alkaline Phosphatase 47 Troponin I 0.0240 Total Protein 6.6 Albumin 4.3 Globulin 2.3 Albumin/Globulin Ratio 1.9 Urine Color Urine Clarity Urine pH Ur Specific [place] Urine Protein Urine Glucose (UA) Urine Ketones Urine Blood Urine Nitrate Urine Bilirubin Urine Urobilinogen Ur Leukocyte Esterase Urine WBC (Auto) Urine RBC (Auto) Influenza Typ A,B (EIA) Negative for flu a/b Grp A Beta Strep Ag Negative 05/04/18 05/04/18 05/05/18 20:58 22:42 07:15 WBC 4.6 L RBC 3.67 L Hgb 11.8 L Hct 35.1 MCV 95.6 H MCH 32.3 H MCHC 33.7 RDW 13.8 Plt Count 175 MPV 9.3 Neut % (Auto) 76.6 H Lymph % (Auto) 8.8 L [place] % (Auto) 9.0 Eos % (Auto) 4.9 H Baso % (Auto) 0.7 Neut # (Auto) 3.5 Lymph # (Auto) 0.4 L [place] # (Auto) 0.4 Eos # (Auto) 0.2 Baso # (Auto) 0.0 Neutrophils % (Manual) 79 H Lymphocytes % (Manual) 8 L Monocytes % (Manual) 4 Eosinophils % (Manual) 8 H Basophils % (Manual) 1 Platelet Estimate Normal Hypochromasia (manual) Poikilocytosis (manual Anisocytosis (manual) Sodium Potassium Chloride Carbon Dioxide Anion Gap BUN Creatinine Est GFR ( Amer) Est GFR (Non-Af Amer) POC Glucose (mg/dL) 178 H Random Glucose Calcium Phosphorus Magnesium Total Bilirubin AST ALT Alkaline Phosphatase Troponin I Total Protein Albumin Globulin Albumin/Globulin Ratio Urine Color Yellow Urine Clarity Clear Urine pH 6.0 Ur Specific [place] 1.015 Urine Protein Negative Urine Glucose (UA) 1+ H Urine Ketones Negative Urine Blood Negative Urine Nitrate Negative Urine Bilirubin Negative Urine Urobilinogen Normal Ur Leukocyte Esterase Neg Urine WBC (Auto) < 1 Urine RBC (Auto) < 1 Influenza Typ A,B (EIA) Grp A Beta Strep Ag 05/05/18 05/05/18 05/05/18 07:15 07:47 11:16 WBC RBC Hgb Hct MCV MCH MCHC RDW Plt Count MPV Neut % (Auto) Lymph % (Auto) [place] % (Auto) Eos % (Auto) Baso % (Auto) Neut # (Auto) Lymph # (Auto) [place] # (Auto) Eos # (Auto) Baso # (Auto) Neutrophils % (Manual) Lymphocytes % (Manual) Monocytes % (Manual) Eosinophils % (Manual) Basophils % (Manual) Platelet Estimate Hypochromasia (manual) Poikilocytosis (manual Anisocytosis (manual) Sodium 139 Potassium 4.2 Chloride 105 Carbon Dioxide 27 Anion Gap 12 BUN 40 H Creatinine 3.0 H Est GFR ( Amer) 26 Est GFR (Non-Af Amer) 21 POC Glucose (mg/dL) 99 26 L* Random Glucose 95 D Calcium 9.1 Phosphorus 2.9 Magnesium 1.6 Total Bilirubin 0.7 AST 36 ALT 20 L D Alkaline Phosphatase 33 L D Troponin I Total Protein 6.7 Albumin 4.3 Globulin 2.4 Albumin/Globulin Ratio 1.8 Urine Color Urine Clarity Urine pH Ur Specific [place] Urine Protein Urine Glucose (UA) Urine Ketones Urine Blood Urine Nitrate Urine Bilirubin Urine Urobilinogen Ur Leukocyte Esterase Urine WBC (Auto) Urine RBC (Auto) Influenza Typ A,B (EIA) Grp A Beta Strep Ag 05/05/18 05/05/18 11:26 11:40 WBC RBC Hgb Hct MCV MCH MCHC RDW Plt Count MPV Neut % (Auto) Lymph % (Auto) [place] % (Auto) Eos % (Auto) Baso % (Auto) Neut # (Auto) Lymph # (Auto) [place] # (Auto) Eos # (Auto) Baso # (Auto) Neutrophils % (Manual) Lymphocytes % (Manual) Monocytes % (Manual) Eosinophils % (Manual) Basophils % (Manual) Platelet Estimate Hypochromasia (manual) Poikilocytosis (manual Anisocytosis (manual) Sodium Potassium Chloride Carbon Dioxide Anion Gap BUN Creatinine Est GFR ( Amer) Est GFR (Non-Af Amer) POC Glucose (mg/dL) 35 L* 154 H Random Glucose Calcium Phosphorus Magnesium Total Bilirubin AST ALT Alkaline Phosphatase Troponin I Total Protein Albumin Globulin Albumin/Globulin Ratio Urine Color Urine Clarity Urine pH Ur Specific [place] Urine Protein Urine Glucose (UA) Urine Ketones Urine Blood Urine Nitrate Urine Bilirubin Urine Urobilinogen Ur Leukocyte Esterase Urine WBC (Auto) Urine RBC (Auto) Influenza Typ A,B (EIA) Grp A Beta Strep Ag Assessment & Plan (1) CAD (coronary artery disease) Status: Acute (2) Acute kidney injury Status: Acute (3) Influenza-like illness Status: Acute (4) CKD (chronic kidney disease) stage 3, GFR 30-59 ml/min Status: Acute (5) Diabetes Status: Acute - Assessment and Plan (Free Text) Plan: stop diuretic stop AVERY I IV hydration IV ABs await cultures check tacro level
[2018-05-05] MEDS: MYCOPHENOLIC ACID 180 MG PO SCH (17:55)
[2018-05-05] MEDS: (Lantus) Insulin Glargine, Recombinant SC SCH (21:38)
--- NOTE | 2018-05-06 04:48 | CP.PCM.PN ---
"<Maria Eugenia Hurtado - Last Filed: 05/06/18 04:42> Subjective - Date & Time of Evaluation Date of Evaluation: 05/06/18 Time of Evaluation: 05:40 - Subjective Subjective: PGY-1 Medicine Progress Note for Dr. Haines Patient was seen and examined today at bedside in no acute distress. Nurse reports no overnight events. Patient has no new complaints. Denies chest pain, shortness of breath, fever, chills, abdominal pain, n/v/c/d or urinary symptoms. Objective - Vital Signs/Intake and Output Vital Signs (last 24 hours): Temp Pulse Resp BP Pulse Ox 97.8 F 73 20 144/70 94 L 05/06/18 00:00 05/06/18 00:00 05/06/18 00:00 05/06/18 00:00 05/06/18 00:00 Intake and Output: 05/05/18 05/06/18 18:59 06:59 Intake Total 910 Output Total 500 Balance 410 - Medications Medications: Current Medications Acetaminophen (Tylenol 325mg Tab) 650 mg PO Q6 PRN PRN Reason: Fever >100.4 F Last Admin: 05/05/18 16:52 Dose: 650 mg Amlodipine Besylate (Norvasc) 10 mg PO DAILY [facility] Last Admin: 05/05/18 10:12 Dose: 10 mg Aspirin (Ecotrin) 81 mg PO DAILY [facility] Last Admin: 05/05/18 10:03 Dose: 81 mg Clopidogrel Bisulfate (Plavix) 75 mg PO DAILY [facility] Last Admin: 05/05/18 10:14 Dose: 75 mg Guaifenesin/Dextromethorphan (Robitussin Dm) 10 ml PO Q4H PRN PRN Reason: Cough and congestion Last Admin: 05/05/18 03:49 Dose: 10 ml Heparin Sodium (Porcine) (Heparin) 5,000 units SC Q8 [facility] Last Admin: 05/05/18 21:45 Dose: 5,000 units Home Med (Patient's Own Medication) 2 tab PO BID [facility] Last Admin: 05/05/18 17:55 Dose: 2 tab Sodium Chloride (Sodium Chloride 0.9%) 1,000 mls @ 70 mls/hr IV .[id number] [facility] Last Admin: 05/05/18 06:41 Dose: Not Given Piperacillin Sod/Tazobactam (Sod 2.25 gm/ Sodium Chloride) 100 mls @ 200 mls/hr IVPB Q8H [facility]; Protocol Last Admin: 05/05/18 21:39 Dose: 200 mls/hr Insulin Aspart (Novolog) 10 unit SC ACTID [facility] Last Admin: 05/05/18 18:01 Dose: 10 units Insulin Glargine (Lantus) 22 unit SC [facility] Last Admin: 05/05/18 21:38 Dose: Not Given Labetalol HCl (Normodyne) 300 mg PO BID [facility] Last Admin: 05/05/18 18:01 Dose: 300 mg Levothyroxine Sodium (Synthroid) 50 mcg PO Q24H [facility] Last Admin: 05/05/18 09:49 Dose: 50 mcg Minoxidil (Minoxidil) 2.5 mg PO BID [facility] Last Admin: 05/05/18 18:01 Dose: 2.5 mg Multivitamins (Hexavitamin) 1 tab PO DAILY [facility] Last Admin: 05/05/18 10:04 Dose: 1 tab Zenwk-0-Vxim Ethyl Esters (Lovaza) 2 gm PO BID [facility] Last Admin: 05/05/18 18:05 Dose: 2 gm Pantoprazole Sodium (Protonix Ec Tab) 40 mg PO DAILY [facility] Last Admin: 05/05/18 10:18 Dose: 40 mg Pneumococcal Polyvalent Vaccine (Pneumovax 23 Vaccine) 0.5 ml IM .ONCE ONE Stop: 05/07/18 10:01 Prednisone (Prednisone Tab) 5 mg PO DAILY [facility] Last Admin: 05/05/18 10:16 Dose: 5 mg Rosuvastatin Calcium (Crestor) 10 mg PO [facility] Last Admin: 05/05/18 21:39 Dose: 10 mg Tacrolimus (Prograf Cap) 1 mg PO [facility] Last Admin: 05/05/18 21:38 Dose: 1 mg Tacrol[facility] ([facility]graf Cap) [facility] [place] Admin: 05/05/18 10:17 Dose: 2 mg - Labs Labs: 05/05/18 07:15 05/05/18 07:15 PT 14.0 SECONDS (9.7-12.2) H 05/04/18 13:23 INR 1.3 05/04/18 13:23 APTT 30 SECONDS (21-34) 05/04/18 13:23 - Constitutional Appears: Well, Non-toxic, No Acute Distress - Head Exam Head Exam: ATRAUMATIC, NORMAL INSPECTION, NORMOCEPHALIC - Eye Exam Eye Exam: EOMI, Normal appearance - ENT Exam ENT Exam: Mucous Membranes Moist - Neck Exam Neck Exam: Normal Inspection. absent: Lymphadenopathy - Respiratory Exam Respiratory Exam: Decreased Breath Sounds (lower lung bases), NORMAL BREATHING PATTERN. absent: Accessory Muscle Use - Cardiovascular Exam Cardiovascular Exam: REGULAR RHYTHM, +S1, +S2. absent: Murmur - GI/Abdominal Exam GI & Abdominal Exam: Soft, Normal Bowel Sounds. absent: Tenderness - Extremities Exam Extremities Exam: Normal Capillary Refill. absent: Calf Tenderness - Neurological Exam Neurological Exam: Alert, Awake, Oriented x3 - Psychiatric Exam Psychiatric exam: Normal Affect, Normal Mood - Skin Skin Exam: Dry, Intact, Normal Color, Warm Additional comments: Erythema in chest wall (Chronic) scar on left forearm Assessment and Plan - Assessment and Plan (Free Text) Assessment: 62 year old male with a PMHx of of Diabetes Type II, Hypertension, CKD s/p renal transplant of right kidney (2013), CAD s/p Stent in proximal LAD, Hyper lipidemia, Hypothyroidism, and left eye blindness who presents with complaints of upper respiratory type symptoms including productive cough, subjective fever, and chest congestion x 3 days. Found to have elevated Cr during workup. Admitted for evaluation and treatment of acute on chronic kidney injury and URI. Plan: Acute on Chronic Renal Failure/Hx of Renal Transplant Cr. 3.6 on Admission- trending down today to 3.0 Ddx: Infection, vs Pre-Renal, vs Chronic Rejection Consults: Dr. Boothe, Recs Appreciated Renal US (Admission): normal RLQ renal transplant without hydronephrosis or nephrolithiasis --Renally dose medications --Avoid Nephrotoxic Agents Mgmt: NS @ 70mls/Hr. Tacrolimus 1mg, 2tabs QAM/1tab HS Myfortic 180mg Tabs, 2tabs PO BID (Patient may need to bring from home) Prednisone 5mg PO Daily URI/Subjective Fevers (Acute) Ddx: Viral URI, UTI, vs Kidney rejection VBG Lactate - WNL CXR(Admission): No acute Disease Process Labs: UA | Urine Culture| Blood Culture | Sputum Culture | ProCal Mgmt: Zosyn 2.25 IVP Q8H Robitussin DM 10ml Q4H PRN for Cough Tylenol PRN for Fever f/u sputum cultures HTN (Chronic) Mgmt: Cont. Home Meds Labetalol 300mg PO BID Lisinopril 20mg PO BID (Held due to MIGUEL) Chlorithiadone 25mg PO Daily Norvasc 10mg PO Daily CAD/Stent (Chronic) Mgmt: Cont. Home Meds Plavix 75mg Daily Aspirin 81 mg Daily Hyperlipidemia (Chronic) Mgmt: Cont. Home Meds not in formulary nor on list patient provided, but in MAR . Start Crestor 10mg PO HS [place] 3 2 grams PO BID Hypothyroidism (Chronic) Mgmt: Cont. Home Meds Levothyroxine 50mcg PO QAM Diabetes (Chronic) Mgmt: Insulin Aspart 10 units SC Before meals 3x Daily Lantus 22 Units SC HS Proph Heparing 5000u sc q8 Protonix (GERD Hx) Renal Diet NS @ 70 DISPO: pending Cr improvent, once normalized to baseline- d/c home likely po ssible if sputums also neg <Mason Haines H - Last Filed: 05/06/18 12:40> Objective - Vital Signs/Intake and Output Vital Signs (last 24 hours): Temp Pulse Resp BP Pulse Ox 97.2 F L 77 20 162/74 H 96 05/06/18 08:46 05/06/18 08:46 05/06/18 08:46 05/06/18 08:46 05/06/18 08:46 Intake and Output: 05/06/18 05/06/18 06:59 18:59 Intake Total 910 810 Output Total 500 Balance 410 810 - Medications Medications: Current Medications Acetaminophen (Tylenol 325mg Tab) 650 mg PO Q6 PRN PRN Reason: Fever >100.4 F Last Admin: 05/05/18 16:52 Dose: 650 mg Amlodipine Besylate (Norvasc) 10 mg PO DAILY [facility] Last Admin: 05/05/18 10:12 Dose: 10 mg Aspirin (Ecotrin) 81 mg PO DAILY [facility] Last Admin: 05/05/18 10:03 Dose: 81 mg Clopidogrel Bisulfate (Plavix) 75 mg PO DAILY [facility] Last Admin: 05/05/18 10:14 Dose: 75 mg Guaifenesin/Dextromethorphan (Robitussin Dm) 10 ml PO Q4H PRN PRN Reason: Cough and congestion Last Admin: 05/05/18 03:49 Dose: 10 ml Heparin Sodium (Porcine) (Heparin) 5,000 units SC Q8 [facility] Last Admin: 05/06/18 06:23 Dose: 5,000 units Home Med (Patient's Own Medication) 2 tab PO BID [facility] Last Admin: 05/05/18 17:55 Dose: 2 tab Sodium Chloride (Sodium Chloride 0.9%) 1,000 mls @ 70 mls/hr IV .[id number] [facility] Last Admin: 05/05/18 06:41 Dose: Not Given Piperacillin Sod/Tazobactam (Sod 2.25 gm/ Sodium Chloride) 100 mls @ 200 mls/hr IVPB Q8H [facility]; Protocol Last Admin: 05/06/18 06:23 Dose: 200 mls/hr Insulin Aspart (Novolog) 10 unit SC ACTID [facility] Last Admin: 05/06/18 08:36 Dose: Not Given Insulin Glargine (Lantus) 22 unit SC [facility] Last Admin: 05/05/18 21:38 Dose: Not Given Labetalol HCl (Normodyne) 300 mg PO BID [facility] Last Admin: 05/05/18 18:01 Dose: 300 mg Levothyroxine Sodium (Synthroid) 50 mcg PO Q24H [facility] Last Admin: 05/05/18 09:49 Dose: 50 mcg Minoxidil (Minoxidil) 2.5 mg PO BID [facility] Last Admin: 05/05/18 18:01 Dose: 2.5 mg Multivitamins (Hexavitamin) 1 tab PO DAILY [facility] Last Admin: 05/05/18 10:04 Dose: 1 tab [id number]-[id number] Ethyl Esters (Lovaza) 2 gm PO BID [facility] Last Admin: 05/05/18 18:05 Dose: 2 gm Pantoprazole Sodium (Protonix Ec Tab) 40 mg PO DAILY [facility] Last Admin: 05/05/18 10:18 Dose: 40 mg Pneumococcal Polyvalent Vaccine (Pneumovax 23 Vaccine) 0.5 ml IM .ONCE ONE Stop: 05/07/18 10:01 Prednisone (Prednisone Tab) 5 mg PO DAILY [facility] Last Admin: 05/05/18 10:16 Dose: 5 mg Rosuvastatin Calcium (Crestor) 10 mg PO [facility] Last Admin: 05/05/18 21:39 Dose: 10 mg Tacrolimus (Prograf Cap) 1 mg PO HS [facility] Last Admin: 05/05/18 21:38 Dose: 1 mg Tacrolimus (Prograf Cap) 2 mg PO QAM [facility] Last Admin: 05/05/18 10:17 Dose: 2 mg - Labs Labs: 05/06/18 08:12 05/06/18 08:12 PT 14.0 SECONDS (9.7-12.2) H 05/04/18 13:23 INR 1.3 05/04/18 13:23 APTT 34 SECONDS (21-34) 05/06/18 08:12 Attending/Attestation - Attestation I have personally seen and examined this patient.: Yes I have fully participated in the care of the patient.: Yes I have reviewed all pertinent clinical information, including history, physical exam and plan: Yes Notes (Text): 05/06/18 12:36 Medical attending: Patient was seen and examined by me. Agree with the above note by the resident The patient was with family member and he was ok with family during our exam and discussion The patient reports feeling well. Less cough, less congestion. His Lasix and His Lisinopril are on hold at this time The patient's creatine is slowyly decreasing. Today was 2.5 He is on slow IVF He is not short of breath, but if he does then will do a CXRAY He is making good amount of urine he says We are continuing the myfortic, tacrolimus, and the prednisone Mason Haines"
[2018-05-06] MEDS: Piperacillin/Tazobact 2.25 GM in Sodium Chloride 100 ML IVPB SCH ×3 (06:23→21:28)
[2018-05-06 08:24] LABS: BASO % 0.6 % (0.0-2.0); EOS # 0.2 K/uL (0.0-0.7); EOS % 6.1 % (0.0-4.0); HEMOGLOBIN 11.8 g/dL (12.0-18.0); LYMPH # 0.5 K/uL (1.0-4.3); LYMPH % 15.9 % (20.0-40.0); MEAN CELL VOLUME 96.2 fL (80.0-94.0); MEAN CORPUSCULAR HEMOGLOBIN 32.1 pg (27.0-31.0); MEAN CORPUSCULAR HGB CONC 33.3 g/dL (33.0-37.0); MEAN PLATELET VOLUME 9.6 fL (7.2-11.7); MONO # 0.3 K/uL (0.0-0.8); NEUT # 2.1 K/uL (1.8-7.0); NEUT % 66.4 % (50.0-75.0); NRBC % 0.2 % (0.0-2.0); RBC 3.67 Mil/uL (4.40-5.90); RED CELL DISTRIBUTION WIDTH 13.6 % (11.5-14.5); WHITE BLOOD COUNT 3.1 K/uL (4.8-10.8)
[2018-05-06] MEDS: (Novolog) Insulin Aspart, Recombinant 100 u/ml 10 ml vial SC SCH ×3 (08:36→17:49)
[2018-05-06 08:41] LABS: ALB/GLOB RATIO 1.7 (1.0-2.1); ALBUMIN 4.3 g/dL (3.5-5.0); CALCIUM 9.9 mg/dl (8.6-10.4)
--- NOTE | 2018-05-06 10:09 | CP.PCM.PN ---
Subjective - Date & Time of Evaluation Date of Evaluation: 05/06/18 Time of Evaluation: 10:06 - Subjective Subjective: This patient is a 62 year old male with a PMHx of of Diabetes Type II, Hypertension, CKD s/p renal transplant of right kidney (2013), CAD s/p Stent in proximal LAD, Hyperlipidemia, Hypothyroidism, and left eye blindness who presents with complaints of upper respiratory type symptoms including productive cough, subjective fever, and chest congestion x 3 days. Patient denies using any modalities to treat his symptoms; his fever resolved without any intervention. He does admit to sick contacts. He states he is compliant with his current medications. Notes reviewed Comfortable in bed No overnight events Feels well overall No fever or chills No cough, dysuria Appetite good 10 point ros negative other than stated above Objective - Vital Signs/Intake and Output Vital Signs (last 24 hours): Temp Pulse Resp BP Pulse Ox 97.2 F L 77 20 162/74 H 96 05/06/18 08:46 05/06/18 08:46 05/06/18 08:46 05/06/18 08:46 05/06/18 08:46 Intake and Output: 05/06/18 05/06/18 06:59 18:59 Intake Total 910 810 Output Total 500 Balance 410 810 - Medications Medications: Current Medications Acetaminophen (Tylenol 325mg Tab) 650 mg PO Q6 PRN PRN Reason: Fever >100.4 F Last Admin: 05/05/18 16:52 Dose: 650 mg Amlodipine Besylate (Norvasc) 10 mg PO DAILY [facility] Last Admin: 05/05/18 10:12 Dose: 10 mg Aspirin (Ecotrin) 81 mg PO DAILY [facility] Last Admin: 05/05/18 10:03 Dose: 81 mg Clopidogrel Bisulfate (Plavix) 75 mg PO DAILY [facility] Last Admin: 05/05/18 10:14 Dose: 75 mg Guaifenesin/Dextromethorphan (Robitussin Dm) 10 ml PO Q4H PRN PRN Reason: Cough and congestion Last Admin: 05/05/18 03:49 Dose: 10 ml Heparin Sodium (Porcine) (Heparin) 5,000 units SC Q8 [facility] Last Admin: 05/06/18 06:23 Dose: 5,000 units Home Med (Patient's Own Medication) 2 tab PO BID [facility] Last Admin: 05/05/18 17:55 Dose: 2 tab Sodium Chloride (Sodium Chloride 0.9%) 1,000 mls @ 70 mls/hr IV .[id number] [facility] Last Admin: 05/05/18 06:41 Dose: Not Given Piperacillin Sod/Tazobactam (Sod 2.25 gm/ Sodium Chloride) 100 mls @ 200 mls/hr IVPB Q8H [facility]; Protocol Last Admin: 05/06/18 06:23 Dose: 200 mls/hr Insulin Aspart (Novolog) 10 unit SC ACTID [facility] Last Admin: 05/06/18 08:36 Dose: Not Given Insulin Glargine (Lantus) 22 unit SC HS [facility] Last Admin: 05/05/18 21:38 Dose: Not Given Labetalol HCl (Normodyne) 300 mg PO BID [facility] Last Admin: 05/05/18 18:01 Dose: 300 mg Levothyroxine Sodium (Synthroid) 50 mcg PO Q24H [facility] Last Admin: 05/05/18 09:49 Dose: 50 mcg Minoxidil (Minoxidil) 2.5 mg PO BID [facility] Last Admin: 05/05/18 18:01 Dose: 2.5 mg Multivitamins (Hexavitamin) 1 tab PO DAILY [facility] Last Admin: 05/05/18 10:04 Dose: 1 tab Oubkl-2-Ifug Ethyl Esters (Lovaza) 2 gm PO BID [facility] Last Admin: 05/05/18 18:05 Dose: 2 gm Pantoprazole Sodium (Protonix Ec Tab) 40 mg PO DAILY [facility] Last Admin: 05/05/18 10:18 Dose: 40 mg Pneumococcal Polyvalent Vaccine (Pneumovax 23 Vaccine) 0.5 ml IM .ONCE ONE Stop: 05/07/18 10:01 Prednisone (Prednisone Tab) 5 mg PO DAILY [facility] Last Admin: 05/05/18 10:16 Dose: 5 mg Rosuvastatin Calcium (Crestor) 10 mg PO [facility] Last Admin: 05/05/18 21:39 Dose: 10 mg Tacrolimus (Prograf Cap) 1 mg PO HS [facility] Last Admin: 05/05/18 21:38 Dose: 1 mg Tacrolimus (Prograf Cap) 2 mg PO QAM [facility] Last Admin: 05/05/18 10:17 Dose: 2 mg - Labs Labs: 05/06/18 08:12 05/06/18 08:12 PT 14.0 SECONDS (9.7-12.2) H 05/04/18 13:23 INR 1.3 05/04/18 13:23 APTT 34 SECONDS (21-34) 05/06/18 08:12 - Constitutional Appears: Well, Non-toxic - Head Exam Head Exam: ATRAUMATIC, NORMAL INSPECTION - Eye Exam Eye Exam: EOMI, Normal appearance - ENT Exam ENT Exam: Mucous Membranes Moist, Normal Oropharynx - Neck Exam Neck Exam: absent: Lymphadenopathy, Thyromegaly - Respiratory Exam Respiratory Exam: absent: Rales, Rhonchi, Wheezes - Cardiovascular Exam Cardiovascular Exam: REGULAR RHYTHM, +S1, +S2. absent: JVD - GI/Abdominal Exam GI & Abdominal Exam: Soft, Normal Bowel Sounds - Extremities Exam Extremities Exam: absent: Joint Swelling, Pedal Edema - Neurological Exam Neurological Exam: Alert, Awake - Psychiatric Exam Psychiatric exam: Normal Affect, Normal Mood Assessment and Plan (1) Influenza-like illness Status: Acute (2) CKD (chronic kidney disease) stage 3, GFR 30-59 ml/min Status: Acute (3) Diabetes Status: Acute (4) Hypertension Status: Acute (5) Kidney transplant recipient Status: Acute - Assessment and Plan (Free Text) Assessment: Renal allograft function improved with ivf abx as ordered cultures negative stable renal jeffries maintain immunosuppression continue current care
[2018-05-06] MEDS: Labetalol Hydrochloride 300 mg Tab PO SCH ×2 (12:45→17:48)
[2018-05-06] MEDS: Omega-3-Acid Ethyl Esters 1 GM Cap PO SCH ×2 (12:45→17:49)
[2018-05-06] MEDS: Multiple Vitamins Tab PO SCH (12:45)
[2018-05-06] MEDS: MYCOPHENOLIC ACID 180 MG PO SCH ×2 (12:46→17:47)
[2018-05-06] MEDS: Pantoprazole 40 mg EC Tab PO SCH (12:46)
[2018-05-06] MEDS: Levothyroxine 50 MCG TAB PO SCH (12:47)
[2018-05-06] MEDS: Sodium Chloride 0.9% 1,000 ML IV SCH (12:47)
[2018-05-06] MEDS: (Lantus) Insulin Glargine, Recombinant SC SCH (21:27)
[2018-05-07 01:17] VITALS: TEMP 97.4
[2018-05-07] MEDS: Sodium Chloride 0.9% 1,000 ML IV SCH (01:32)
--- NOTE | 2018-05-07 04:44 | CP.PCM.PN ---
"Subjective - Date & Time of Evaluation Date of Evaluation: 05/07/18 Time of Evaluation: 05:30 - Subjective Subjective: PGY-1 Medicine Progress Note for Dr. Haines Patient was seen and examined today at bedside in no acute distress. Nurse reports no overnight events. Patient has no new complaints. Denies chest pain, shortness of breath, fever, chills, abdominal pain, n/v/c/d or urinary symptoms. Objective - Vital Signs/Intake and Output Vital Signs (last 24 hours): Temp Pulse Resp BP Pulse Ox 97.4 F L 76 20 167/77 H 96 05/07/18 00:00 05/07/18 00:00 05/07/18 00:00 05/07/18 00:00 05/07/18 00:00 Intake and Output: 05/06/18 05/07/18 18:59 06:59 Intake Total 810 950 Balance 810 950 - Medications Medications: Current Medications Acetaminophen (Tylenol 325mg Tab) 650 mg PO Q6 PRN PRN Reason: Fever >100.4 F Last Admin: 05/05/18 16:52 Dose: 650 mg Amlodipine Besylate (Norvasc) 10 mg PO DAILY [facility] Last Admin: 05/06/18 12:46 Dose: 10 mg Aspirin (Ecotrin) 81 mg PO DAILY [facility] Last Admin: 05/06/18 12:45 Dose: 81 mg Clopidogrel Bisulfate (Plavix) 75 mg PO DAILY [facility] Last Admin: 05/06/18 12:46 Dose: 75 mg Guaifenesin/Dextromethorphan (Robitussin Dm) 10 ml PO Q4H PRN PRN Reason: Cough and congestion Last Admin: 05/05/18 03:49 Dose: 10 ml Heparin Sodium (Porcine) (Heparin) 5,000 units SC Q8 [facility] Last Admin: 05/06/18 21:28 Dose: 5,000 units Home Med (Patient's Own Medication) 2 tab PO BID [facility] Last Admin: 05/06/18 17:47 Dose: 2 tab Sodium Chloride (Sodium Chloride 0.9%) 1,000 mls @ 70 mls/hr IV .[id number] [facility] Last Admin: 05/06/18 12:47 Dose: Not Given Piperacillin Sod/Tazobactam (Sod 2.25 gm/ Sodium Chloride) 100 mls @ 200 mls/hr IVPB Q8H [facility]; Protocol Last Admin: 05/06/18 21:28 Dose: 200 mls/hr Insulin Aspart (Novolog) 10 unit SC ACTID [facility] Last Admin: 05/06/18 17:49 Dose: Not Given Insulin Glargine (Lantus) 22 unit SC HS [facility] Last Admin: 05/06/18 21:27 Dose: 22 u Labetalol HCl (Normodyne) 300 mg PO BID [facility] Last Admin: 05/06/18 17:48 Dose: 300 mg Levothyroxine Sodium (Synthroid) 50 mcg PO Q24H [facility] Last Admin: 05/06/18 12:47 Dose: 50 mcg Minoxidil (Minoxidil) 2.5 mg PO BID [facility] Last Admin: 05/06/18 17:48 Dose: 2.5 mg Multivitamins (Hexavitamin) 1 tab PO DAILY [facility] Last Admin: 05/06/18 12:45 Dose: 1 tab Nfyvq-[id number] Ethyl Esters (Lovaza) 2 gm PO BID [facility] Last Admin: 05/06/18 17:49 Dose: 2 gm Pantoprazole Sodium (Protonix Ec Tab) 40 mg PO DAILY [facility] Last Admin: 05/06/18 12:46 Dose: 40 mg Pneumococcal Polyvalent Vaccine (Pneumovax 23 Vaccine) 0.5 ml IM .ONCE ONE Stop: 05/07/18 10:01 Prednisone (Prednisone Tab) 5 mg PO DAILY [facility] Last Admin: 05/06/18 12:46 Dose: 5 mg Rosuvastatin Calcium (Crestor) 10 mg PO [facility] Last Admin: 05/06/18 21:28 Dose: 10 mg Tacrolimus (Prograf Cap) 1 mg PO [facility] Last Admin: 05/06/18 21:28 Dose: 1 mg [facility]rolimus ([facility]graf Cap) [facility] [place] Admin: 05/06/18 12:46 Dose: 2 mg - Labs Labs: 05/06/18 08:12 05/06/18 08:12 PT 14.0 SECONDS (9.7-12.2) H 05/04/18 13:23 INR 1.3 05/04/18 13:23 APTT 34 SECONDS (21-34) 05/06/18 08:12 - Constitutional Appears: Well, Non-toxic, No Acute Distress - Head Exam Head Exam: ATRAUMATIC, NORMAL INSPECTION, NORMOCEPHALIC - Eye Exam Eye Exam: EOMI, Normal appearance - ENT Exam ENT Exam: Mucous Membranes Moist - Neck Exam Neck Exam: Normal Inspection. absent: Lymphadenopathy - Respiratory Exam Respiratory Exam: Decreased Breath Sounds, NORMAL BREATHING PATTERN. absent: Accessory Muscle Use - Cardiovascular Exam Cardiovascular Exam: REGULAR RHYTHM, +S1, +S2 - GI/Abdominal Exam GI & Abdominal Exam: Soft, Normal Bowel Sounds. absent: Tenderness - Extremities Exam Extremities Exam: Normal Capillary Refill. absent: Calf Tenderness - Neurological Exam Neurological Exam: Alert, Awake, Oriented x3 - Psychiatric Exam Psychiatric exam: Normal Affect, Normal Mood - Skin Skin Exam: Dry, Intact, Normal Color, Warm Additional comments: Erythema in chest wall (Chronic) scar on left forearm Assessment and Plan - Assessment and Plan (Free Text) Assessment: 62 year old male with a PMHx of of Diabetes Type II, Hypertension, CKD s/p renal transplant of right kidney (2013), CAD s/p Stent in proximal LAD, Hyperlipidemia, Hypothyroidism, and left eye blindness who presents with complaints of upper respiratory type symptoms including productive cough, subjective fever, and chest congestion x 3 days. Found to have elevated Cr during workup. Admitted for evaluation and treatment of acute on chronic kidney injury and URI. Plan: Acute on Chronic Renal Failure/Hx of Renal Transplant Cr. 3.6 on Admission- trending down today to 3.0 Ddx: Infection, vs Pre-Renal, vs Chronic Rejection Consults: Dr. Boothe, Recs Appreciated Renal US (Admission): normal RLQ renal transplant without hydronephrosis or nephrolithiasis --Renally dose medications --Avoid Nephrotoxic Agents Mgmt: NS @ 70mls/Hr. Tacrolimus 1mg, 2tabs QAM/1tab HS Myfortic 180mg Tabs, 2tabs PO BID (Patient may need to bring from home) Prednisone 5mg PO Daily URI/Subjective Fevers (Acute) Ddx: Viral URI, UTI, vs Kidney rejection VBG Lactate - WNL CXR(Admission): No acute Disease Process Labs: UA | Urine Culture| Blood Culture | Sputum Culture | ProCal Mgmt: Zosyn 2.25 IVP Q8H Robitussin DM 10ml Q4H PRN for Cough Tylenol PRN for Fever f/u sputum cultures HTN (Chronic) Mgmt: Cont. Home Meds Labetalol 300mg PO BID Lisinopril 20mg PO BID (Held due to MIGUEL) Chlorithiadone 25mg PO Daily Norvasc 10mg PO Daily CAD/Stent (Chronic) Mgmt: Cont. Home Meds Plavix 75mg Daily Aspirin 81 mg Daily Hyperlipidemia (Chronic) Mgmt: Cont. Home Meds not in formulary nor on list patient provided, but in MAR . Start Crestor 10mg PO HS [place] 3 2 grams PO BID Hypothyroidism (Chronic) Mgmt: Cont. Home Meds Levothyroxine 50mcg PO QAM Diabetes (Chronic) Mgmt: Insulin Aspart 10 units SC Before meals 3x Daily Lantus 22 Units SC HS Proph Heparing 5000u sc q8 Protonix (GERD Hx) Renal Diet NS @ 70 DISPO: pending Cr improvent, once normalized to baseline- d/c home likely possible if sputums also neg"
[2018-05-07] MEDS: Piperacillin/Tazobact 2.25 GM in Sodium Chloride 100 ML IVPB SCH (06:04)
[2018-05-07] MEDS: (Novolog) Insulin Aspart, Recombinant 100 u/ml 10 ml vial SC SCH ×2 (07:26→11:49)
[2018-05-07 07:57] LABS: BASO % 0.8 % (0.0-2.0); EOS # 0.2 K/uL (0.0-0.7); EOS % 6.2 % (0.0-4.0); HEMOGLOBIN 12.6 g/dL (12.0-18.0); LYMPH # 0.6 K/uL (1.0-4.3); LYMPH % 15.3 % (20.0-40.0); MEAN CELL VOLUME 95.9 fL (80.0-94.0); MEAN CORPUSCULAR HEMOGLOBIN 32.3 pg (27.0-31.0); MEAN CORPUSCULAR HGB CONC 33.6 g/dL (33.0-37.0); MEAN PLATELET VOLUME 9.3 fL (7.2-11.7); MONO # 0.3 K/uL (0.0-0.8); MONO % 9.3 % (0.0-10.0); NEUT # 2.5 K/uL (1.8-7.0); NEUT % 68.4 % (50.0-75.0); NRBC % 0.1 % (0.0-2.0); RBC 3.89 Mil/uL (4.40-5.90); RED CELL DISTRIBUTION WIDTH 13.6 % (11.5-14.5); WHITE BLOOD COUNT 3.7 K/uL (4.8-10.8)
[2018-05-07] MEDS: Levothyroxine 50 MCG TAB PO SCH (08:07)
[2018-05-07 08:26] LABS: ALB/GLOB RATIO 1.8 (1.0-2.1); ALBUMIN 4.6 g/dL (3.5-5.0); CALCIUM 9.9 mg/dl (8.6-10.4)
[2018-05-07 08:29] VITALS: BP 155/78; PULSE 71; O2SAT 95
[2018-05-07] MEDS: Multiple Vitamins Tab PO SCH (09:15)
[2018-05-07] MEDS: Pantoprazole 40 mg EC Tab PO SCH (09:16)
[2018-05-07] MEDS: Omega-3-Acid Ethyl Esters 1 GM Cap PO SCH (09:16)
[2018-05-07] MEDS: MYCOPHENOLIC ACID 180 MG PO SCH (09:17)
[2018-05-07] MEDS: Labetalol Hydrochloride 300 mg Tab PO SCH (09:17)
[2018-05-07] MEDS ORDERED: Pneumococcal 23-Valent Vaccine IM ONE (10:00)
--- NOTE | 2018-05-07 10:33 | CP.PCM.DIS ---
Provider - Provider Date of Admission: 05/04/18 14:40 Attending physician: Mason Haines DO Primary care physician: Seema Consults: 05/04/18 16:56 Nephrology Consult Routine Comment: Consulting Provider: Ashish Boothe Consulting Physician: Ashish Boothe Reason for Consult: MIGUEL, patient of provider. Time Spent in preparation of Discharge (in minutes): 45 Diagnosis - Discharge Diagnosis (1) Acute on chronic renal failure Status: Acute Priority: High (2) URI (upper respiratory infection) Status: Resolved Priority: Medium (3) CAD (coronary artery disease) Status: Chronic Priority: Medium (4) HLD (hyperlipidemia) Status: Chronic Priority: Medium (5) Hypothyroidism Status: Chronic Priority: Medium (6) Diabetes Status: Chronic Priority: Medium (7) Hypertension Status: Chronic Priority: Medium Hospital Course - Lab Results Lab Results: Micro Results 05/04/18 12:10 Blood Blood Culture - Preliminary NO GROWTH AFTER 48 HOURS 05/04/18 22:42 Urine Random Urine Culture - Final No Growth (<1,000 CFU/ML) 05/04/18 13:23 Throat Group A Strep Throat Culture - Final NO BETA STREP GROUP A ISOLATED. Most Recent Lab Values WBC 3.7 K/uL (4.8-10.8) L 05/07/18 07:50 RBC 3.89 Mil/uL (4.40-5.90) L 05/07/18 07:50 Hgb 12.6 g/dL (12.0-18.0) 05/07/18 07:50 Hct 37.4 % (35.0-51.0) 05/07/18 07:50 MCV 95.9 fL (80.0-94.0) H 05/07/18 07:50 MCH 32.3 pg (27.0-31.0) H 05/07/18 07:50 MCHC 33.6 g/dL (33.0-37.0) 05/07/18 07:50 RDW 13.6 % (11.5-14.5) 05/07/18 07:50 Plt Count 210 K/uL (130-400) 05/07/18 07:50 MPV 9.3 fL (7.2-11.7) 05/07/18 07:50 Neut % (Auto) 68.4 % (50.0-75.0) 05/07/18 07:50 Lymph % (Auto) 15.3 % (20.0-40.0) L 05/07/18 07:50 [place] % (Auto) 9.3 % (0.0-10.0) 05/07/18 07:50 Eos % (Auto) 6.2 % (0.0-4.0) H 05/07/18 07:50 Baso % (Auto) 0.8 % (0.0-2.0) 05/07/18 07:50 Neut # (Auto) 2.5 K/uL (1.8-7.0) 05/07/18 07:50 Lymph # (Auto) 0.6 K/uL (1.0-4.3) L 05/07/18 07:50 [place] # (Auto) 0.3 K/uL (0.0-0.8) 05/07/18 07:50 Eos # (Auto) 0.2 K/uL (0.0-0.7) 05/07/18 07:50 Baso # (Auto) 0.0 K/uL (0.0-0.2) 05/07/18 07:50 Neutrophils % (Manual) 79 % (50-75) H 05/05/18 07:15 Lymphocytes % (Manual) 8 % (20-40) L 05/05/18 07:15 Monocytes % (Manual) 4 % (0-10) 05/05/18 07:15 Eosinophils % (Manual) 8 % (0-4) H 05/05/18 07:15 Basophils % (Manual) 1 % (0-2) 05/05/18 07:15 Platelet Estimate Normal (NORMAL) 05/05/18 07:15 Hypochromasia (manual) Slight 05/04/18 13:23 Poikilocytosis (manual Slight 05/04/18 13:23 Anisocytosis (manual) Slight 05/04/18 13:23 PT 14.0 SECONDS (9.7-12.2) H 05/04/18 13:23 INR 1.3 05/04/18 13:23 APTT 34 SECONDS (21-34) 05/06/18 08:12 pO2 34 mm/Hg (30-55) 05/04/18 13:33 VBG pH 7.38 (7.32-7.43) 05/04/18 13:33 VBG pCO2 43 mmHg (40-60) 05/04/18 13:33 VBG HCO3 24.0 mmol/L 05/04/18 13:33 VBG Total CO2 26.7 mmol/L (22-28) 05/04/18 13:33 VBG O2 Sat (Calc) 71.0 % (40-65) H 05/04/18 13:33 VBG Base Excess 0.0 mmol/L (0.0-2.0) 05/04/18 13:33 VBG Potassium 4.3 mmol/L (3.6-5.2) 05/04/18 13:33 Sodium 136.0 mmol/l (132-148) 05/04/18 13:33 Chloride 106.0 mmol/L (98-107) 05/04/18 13:33 Glucose 180 mg/dl (75-110) H 05/04/18 13:33 Lactate 0.8 mmol/L (0.7-2.1) 05/04/18 13:33 Sodium 140 mmol/L (132-148) 05/07/18 07:50 Potassium 4.3 mmol/L (3.6-5.2) 05/07/18 07:50 Chloride 104 mmol/L (98-107) 05/07/18 07:50 Carbon Dioxide 27 mmol/L (22-30) 05/07/18 07:50 Anion Gap 13 (10-20) 05/07/18 07:50 BUN 24 mg/dL (9-20) H 05/07/18 07:50 Creatinine 2.3 mg/dL (0.8-1.5) H 05/07/18 07:50 Est GFR ( Amer) 35 05/07/18 07:50 Est GFR (Non-Af Amer) 29 05/07/18 07:50 POC Glucose (mg/dL) 121 mg/dL (65-110) H 05/07/18 07:16 Random Glucose 101 mg/dL (75-110) 05/07/18 07:50 Calcium 9.9 mg/dl (8.6-10.4) 05/07/18 07:50 Phosphorus 2.5 mg/dL (2.5-4.5) 05/06/18 08:12 Magnesium 1.5 mg/dL (1.6-2.3) L 05/06/18 08:12 Total Bilirubin 0.4 mg/dL (0.2-1.3) 05/07/18 07:50 AST 34 U/L (17-59) 05/07/18 07:50 ALT 23 U/L (21-72) 05/07/18 07:50 Alkaline Phosphatase 45 U/L (38-126) 05/07/18 07:50 Troponin I 0.0240 ng/mL (0.00-0.120) 05/04/18 13:23 Total Protein 7.2 g/dL (6.3-8.3) 05/07/18 07:50 Albumin 4.6 g/dL (3.5-5.0) 05/07/18 07:50 Globulin 2.6 gm/dL (2.2-3.9) 05/07/18 07:50 Albumin/Globulin Ratio 1.8 (1.0-2.1) 05/07/18 07:50 Venous Blood Potassium 4.3 mmol/L (3.6-5.2) 05/04/18 13:33 Urine Color Yellow (YELLOW) 05/04/18 22:42 Urine Clarity Clear (Clear) 05/04/18 22:42 Urine pH 6.0 (5.0-8.0) 05/04/18 22:42 Ur Specific [place] 1.015 (1.003-1.030) 05/04/18 22:42 Urine Protein Negative mg/dL (NEGATIVE) 05/04/18 22:42 Urine Glucose (UA) 1+ mg/dL (Normal) H 05/04/18 22:42 Urine Ketones Negative mg/dL (NEGATIVE) 05/04/18 22:42 Urine Blood Negative (NEGATIVE) 05/04/18 22:42 Urine Nitrate Negative (NEGATIVE) 05/04/18 22:42 Urine Bilirubin Negative (NEGATIVE) 05/04/18 22:42 Urine Urobilinogen Normal mg/dL (0.2-1.0) 05/04/18 22:42 Ur Leukocyte Esterase Neg [place]/uL (Negative) 05/04/18 22:42 Urine WBC (Auto) < 1 /hpf (0-5) 05/04/18 22:42 Urine RBC (Auto) < 1 /hpf (0-3) 05/04/18 22:42 Influenza Typ A,B (EIA) Negative for flu a/b (NEGATIVE) 05/04/18 13:23 Grp A Beta Strep Ag Negative (NEGATIVE) 05/04/18 13:23 - Hospital Course Hospital Course: This patient is a 62 year old male with a PMHx of of Diabetes Type II, Hypertension, CKD s/p renal transplant of right kidney (2013), CAD s/p Stent in proximal LAD, Hyperlipidemia, Hypothyroidism, and left eye blindness who presents with complaints of upper respiratory type symptoms including productive cough, subjective fever, and chest congestion x 3 days. Patient denies using any modalities to treat his symptoms; his fever resolved without any intervention. He does admit to sick contacts. He states he is compliant with his current medications. Patient was found to have acute on chronic renal failure. Nephrology was consulted. Lisinopril and Chlorithalidone were held. He was continued on his transplant medications. Renal US did not show any acute abnormalities. BUN and creatinine trended down throughout hospitalization. Patient also treated for symptoms of upper respiratory infection. He was afebrile and without leukocytosis. He was given supportive treatment in addition to a short course of antibiotics. Patient was continued on other medications for chronic conditions- diabetes, HTN, HLD, hypothyroidism, CAD. Upon discharge, patient had no acute complaints. His vitals were stable. He was ambulating without difficulty. His URI symptoms were much improved. His kidney function continued to improve. he will follow-up with Dr. Boothe as planned. Discharge Exam - Head Exam Head Exam: ATRAUMATIC, NORMAL INSPECTION, NORMOCEPHALIC - Eye Exam Eye Exam: EOMI, Normal appearance - ENT Exam ENT Exam: Mucous Membranes Moist - Respiratory Exam Respiratory Exam: Clear to PA & Lateral, NORMAL BREATHING PATTERN, UNREMARKABLE - Cardiovascular Exam Cardiovascular Exam: RRR, +S1, +S2 - GI/Abdominal Exam GI & Abdominal Exam: Soft. absent: Distended, Tenderness - Neurological Exam Neurological exam: Alert, CN II-XII Intact, Normal Gait, Oriented x3 - Psychiatric Exam Psychiatric exam: Normal Affect, Normal Mood - Skin Skin Exam: Dry, Normal Color, Warm Discharge Plan - Follow Up Plan Condition: IMPROVED Disposition: HOME/ ROUTINE Patient education suggested?: Yes Instructions: Kidney Failure, Acute Kidney Failure (DC), Furosemide, Lisinopril Additional Instructions: Follow-up with your wellness spa manager, Dr. Boothe, as scheduled. Resume all home medications EXCEPT lisinopril and furosemide (Lasix)- DO NOT take these two medications until instructed otherwise by Dr. Boothe. If symptoms recur, return to the nearest emergency room. Elai un seguimiento con gayle nefrlogo, el Dr. Boothe, segn lo programado. Reanude todos los medicamentos caseros EXCEPTO lisinopril y furosemida (Lasix) - NO tome estos dos medicamentos hasta que el Dr. Boothe indique lo contrario. Si los sntomas se repiten, regrese a la mario de emergencias ms cercana. Referrals: Ashish Boothe MD [Staff Provider] -
--- NOTE | 2018-05-07 20:13 | CARD ---
APPROVED REPORT Date of service: 05/04/2018 EKG Measurement Heart [id number] VT 118P-3 [id number] <Conclusion> Normal sinus rhythm ST & T wave abnormality, consider lateral ischemia Abnormal ECG
== END 2018-05-07 13:00 | disposition home or self-care (01) | DRG 683 ==
LOC: C.ER 12:05 → C.9E 14:40 → C.3T 16:39
PROVIDERS: ADMIT Hospitalist; ATTEND Hospitalist
DX: N17.9 Acute kidney failure, unspecified (principal); Z94.0 Kidney transplant status; E11.22 Type 2 diabetes mellitus with diabetic chronic kidney disease; J06.9 Acute upper respiratory infection, unspecified; E78.00 Pure hypercholesterolemia, unspecified; I12.9 Hypertensive chronic kidney disease with stage 1 through stage 4 chronic kidney disease, or unspecified chronic kidney disease; N18.3 Chronic kidney disease, stage 3 (moderate); K21.9 Gastro-esophageal reflux disease without esophagitis; I25.10 Atherosclerotic heart disease of native coronary artery without angina pectoris; Z87.891 Personal history of nicotine dependence; E11.319 Type 2 diabetes mellitus with unspecified diabetic retinopathy without macular edema; Z79.4 Long term (current) use of insulin; D63.1 Anemia in chronic kidney disease; Z95.5 Presence of coronary angioplasty implant and graft; E03.9 Hypothyroidism, unspecified

== ENCOUNTER 2018-05-13 02:29 | Inpatient (IN) | payer MEDICARE, MEDICAID ==
[2018-05-13 02:29] VITALS: BMI 33.4
--- NOTE | 2018-05-13 02:52 | C.PDOC ---
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 Associated sx includes SOB. Pt reports he was walking to the bathroom and when he walked back, the chest pain and SOB started. Pt reports pain is stabbing on the right side but non-radiating. Pt took 325 mg of aspirin and nitro which helped relieved his sx. Pt currently has no SOB or pain and denies any fall or trauma. No fever, chills or night sweats. No leg swelling. No recent trauma or surgeries. Pt notes making good urine. No abdominal pain. Time Seen by Provider: 05/13/18 02:52 Chief Complaint (Nursing): Chest Pain History Per: Patient History/Exam Limitations: no limitations Onset/Duration Of Symptoms: Hrs Current Symptoms Are (Timing): Gone Quality: Sharp Associated Symptoms: Other (SOB) Past Medical History Reviewed: Historical Data, Nursing Documentation, Vital Signs - Medical History PMH: Anemia, CAD, Diabetes, Gastritis, HTN, Hypercholesterolemia, Hypothyroidism, Chronic Kidney Disease Family History: States: No Known Family Hx - Social History Hx Tobacco Use: No Hx Alcohol Use: No Hx Substance Use: No - Immunization History Hx Tetanus Toxoid Vaccination: No Hx Influenza Vaccination: Yes Hx Pneumococcal Vaccination: Yes Review Of Systems Constitutional: Negative for: Fever, Chills, Other (fall/trauma ) Eyes: Negative for: Pain, Vision Change ENT: Negative for: Ear Pain, Ear Discharge, Nose Congestion, Mouth Pain Cardiovascular: Positive for: Chest Pain (now resolved ) Respiratory: Positive for: Shortness of Breath (now resolved ). Negative for: Cough Gastrointestinal: Negative for: Nausea, Vomiting, Abdominal Pain, Diarrhea, Constipation Genitourinary: Negative for: Dysuria, Frequency, Incontinence, Hematuria Musculoskeletal: Negative for: Neck Pain, Shoulder Pain, Back Pain Skin: Negative for: Rash Neurological: Negative for: Weakness, Numbness Physical Exam - Physical Exam Appears: Well, Non-toxic, No Acute Distress Skin: Warm, Dry, No Rash Head: Normacephalic Eye(s): bilateral: Normal Inspection, PERRL, EOMI Nose: Normal Oral Mucosa: Moist Tongue: Normal Appearing Lips: Normal Appearing Teeth: Normal Dentition Gingiva: Normal Appearing Throat: Normal, No Erythema, No Exudate Neck: Trachea Midline, Supple, Other (no meningeal signs; negative kernig's and brudzinski's ) Chest: Symmetrical Cardiovascular: Rhythm Regular, No Friction Rub Respiratory: Normal Breath Sounds, No Rales, No Rhonchi, No Wheezing Gastrointestinal/Abdominal: Normal Exam, Soft, No Tenderness Back: Normal Inspection, No CVA Tenderness, No Vertebral Tenderness Neurological/Psych: Oriented x3, Normal Speech, Normal Cognition ED Course And Treatment - Laboratory Results Result Diagrams: 05/13/18 03:11 05/13/18 03:11 ECG: Interpreted By Me, Viewed By Me ECG Rhythm: Sinus Rhythm Interpretation Of ECG: no STEMI. flipped T's. V5 and V6 Rate From EC Medical Decision Making Medical Decision Makin yr old male w/ hx of CAD w/ stents, kidney transplant p/w chest pain. No fall or trauma. LUNGS CTA b/l. Likely moderate heart score given hx. No tearing back pain. No cough or hemoptysis. No recent URI symptoms. heart score Age: 1 rf: 2 story: 1 Ek troponin: pending plans: -- chem labs -- blood work -- EKG -- CXR EK, NSR, no stemi, flipped T in V5 and V6 0400 elevated troponin CXR largely unremarkable per my read PAged Dr. Flynn [phone] Flynn [phone] Flynn [phone] Appreciate consult w/ Dr. Ramirez: no Heparin at this time, admitting team to followup with pts cardiologst (pascual) [phone] appreciate consult w/ Dr. Jones: to admit to his service pt in NAD, agreeable to plan Disposition - Disposition Disposition Time: 05:00 Condition: STABLE - Clinical Impression Clinical Impression: Chest pain - Scribe Statement The provider has reviewed the documentation as recorded by the Augusta Lopes Do Provider Attestation: All medical record entries made by the Scribe were at my direction and pe rsonally dictated by me. I have reviewed the chart and agree that the record accurately reflects my personal performance of the history, physical exam, medical decision making, and the department course for this patient. I have also personally directed, reviewed, and agree with the discharge instructions and disposition.
[2018-05-13 03:32] LABS: BASO % 0.5 % (0.0-2.0); EOS # 0.1 K/uL (0.0-0.7); EOS % 2.5 % (0.0-4.0); HEMOGLOBIN 10.4 g/dL (12.0-18.0); LYMPH # 0.6 K/uL (1.0-4.3); LYMPH % 14.2 % (20.0-40.0); MEAN CELL VOLUME 94.2 fL (80.0-94.0); MEAN CORPUSCULAR HEMOGLOBIN 31.5 pg (27.0-31.0); MEAN CORPUSCULAR HGB CONC 33.4 g/dL (33.0-37.0); MEAN PLATELET VOLUME 9.5 fL (7.2-11.7); MONO # 0.4 K/uL (0.0-0.8); MONO % 8.8 % (0.0-10.0); NEUT # 3.2 K/uL (1.8-7.0); RBC 3.32 Mil/uL (4.40-5.90); RED CELL DISTRIBUTION WIDTH 13.8 % (11.5-14.5); WHITE BLOOD COUNT 4.4 K/uL (4.8-10.8)
[2018-05-13 03:43] LABS: ALB/GLOB RATIO 1.7 (1.0-2.1); ALBUMIN 4.2 g/dL (3.5-5.0); CALCIUM 10.2 mg/dl (8.6-10.4)
[2018-05-13 03:56] LABS: TROPONIN I 0.126 ng/mL (0.00-0.120)
--- NOTE | 2018-05-13 05:52 | CP.PCM.HP ---
<Gurdeep Handley - Last Filed: 05/13/18 05:46> History of Present Illness - History of Present Illness History of Present Illness: PGY-1 History and Physical [address] Dr. Jones Patient is a 62 year old male with past medical history of CAD s/p proximal LAD stent, HTN, HLD, DM, CKD s/p R renal transplant, hypothyroidism, L eye blindness presenting to ED with acute onset chest pain with associated shortness of breath x 1 hour. Patient states he was walking back from the bathroom to bed when the pain started suddenly. He describes it as a sharp R sided chest pain that travels across his chest with no radiation down the arms or up his neck. He was given 325 mg of aspirin and nitroglycerin SL en route which helped alleviate the pain. He current denies any acute pain. No fevers/chi lls, headaches, dizziness, LOC, palpitations, active sob, cough, abdominal pain, n/v/d/c, dysuria, or changes in stool. 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 Currently on disability. Performs all ADLs independently. PMD: Dr. Stephenson Vacuum Evaporation Operator: Dr. Flynn Residential Tech: Dr. Boothe Present on Admission - Present on Admission Any Indicators Present on Admission: No Review of Systems - Review of Systems All systems: reviewed and no additional remarkable complaints except Review of Systems: as per HPI Past Patient History - Infectious Disease Hx of Infectious Diseases: None - Past Medical History & Family History Past Medical History?: Yes - Past Social History Smoking Status: Former Smoker - CARDIAC Hx Hypercholesterolemia: Yes Hx Hypertension: Yes - PULMONARY Hx Respiratory Disorders: No - NEUROLOGICAL Hx Neurological Disorder: No - HEENT Hx Blind: Yes (LEFT EYE DIABETIC RETINOPATHY) - RENAL Hx Chronic Kidney Disease: Yes - ENDOCRINE/METABOLIC Hx Hypothyroidism: Yes - HEMATOLOGICAL/ONCOLOGICAL Hx Anemia: Yes - INTEGUMENTARY Hx Dermatological Problems: No - MUSCULOSKELETAL/RHEUMATOLOGICAL Hx Falls: No - GASTROINTESTINAL Hx Gastritis: Yes - GENITOURINARY/GYNECOLOGICAL Hx Genitourinary Disorders: No - PSYCHIATRIC Hx Substance Use: No - SURGICAL HISTORY Hx Surgeries: Yes Hx Coronary Stent: Yes Hx Kidney Transplant: Yes (04/01/13) Hx Vascular Surgery: Yes (LEFT ARM A/V FISTULA) - ANESTHESIA Hx Anesthesia: Yes Hx Anesthesia Reactions: No Hx Malignant Hyperthermia: No Meds Allergies/Adverse Reactions: Allergies Allergy/AdvReac Type Severity Reaction Status Date / Time No Known Allergies Allergy Verified 05/13/18 02:53 Physical Exam - Constitutional Appears: Non-toxic, No Acute Distress - Head Exam Head Exam: ATRAUMATIC, NORMAL INSPECTION, NORMOCEPHALIC - Eye Exam Eye Exam: EOMI, Normal appearance Pupil Exam: NORMAL ACCOMODATION - ENT Exam ENT Exam: Mucous Membranes Moist, Normal Exam Additional comments: L eye blindness - Neck Exam Neck exam: Positive for: Full Rom, Normal Inspection. Negative for: Tenderness - Respiratory Exam Respiratory Exam: Clear to Auscultation Bilateral, NORMAL BREATHING PATTERN. absent: Accessory Muscle Use, Rales, Rhonchi, Wheezes, Respiratory Distress, Stridor - Cardiovascular Exam Cardiovascular Exam: REGULAR RHYTHM, +S1, +S2. absent: JVD - GI/Abdominal Exam GI & Abdominal Exam: Normal Bowel Sounds, Soft. absent: Distended, Firm, Gu arding, Rebound, Rigid, Tenderness - Extremities Exam Extremities exam: Positive for: normal capillary refill, normal inspection, pedal pulses present. Negative for: calf tenderness, pedal edema Additional comments: LUE scar from old AVF placement - Neurological Exam Neurological exam: Alert, Oriented x3 - Psychiatric Exam Psychiatric exam: Normal Affect, Normal Mood - Skin Skin Exam: Dry, Intact, Normal Color, Warm Results - Vital Signs Recent Vital Signs: Last Vital Signs Temp 98 F 05/13/18 02:46 Pulse 72 05/13/18 02:46 Resp 20 05/13/18 02:46 BP 162/81 H 05/13/18 02:46 Pulse Ox 99 05/13/18 02:46 - Labs Result Diagrams: 05/13/18 03:11 05/13/18 03:11 Labs: Laboratory Results - last 24 hr 05/13/18 05/13/18 03:11 03:11 WBC 4.4 L RBC 3.32 L Hgb 10.4 L D Hct 31.3 L MCV 94.2 H MCH 31.5 H MCHC 33.4 RDW 13.8 Plt Count 231 MPV 9.5 Neut % (Auto) 74.0 Lymph % (Auto) 14.2 L [place] % (Auto) 8.8 Eos % (Auto) 2.5 Baso % (Auto) 0.5 Neut # (Auto) 3.2 Lymph # (Auto) 0.6 L [place] # (Auto) 0.4 Eos # (Auto) 0.1 Baso # (Auto) 0.0 Sodium 139 Potassium 4.2 Chloride 104 Carbon Dioxide 29 Anion Gap 10 BUN 55 H Creatinine 3.0 H Est GFR ( Amer) 26 Est GFR (Non-Af Amer) 21 Random Glucose 81 Calcium 10.2 Total Bilirubin 0.4 AST 45 ALT 41 Alkaline Phosphatase 43 Troponin I 0.1260 H* NT-Pro-B Natriuret Pep 4360 H Total Protein 6.6 Albumin 4.2 Globulin 2.4 Albumin/Globulin Ratio 1.7 Assessment & Plan - Assessment and Plan (Free Text) Assessment: 62 year old male with pmhx of CAD s/p proximal LAD stent, HTN, HLD, DM, CKD s/p R renal transplant, hypothyroidism, L eye blindness presenting to ED with acute onset chest pain with associated shortness of breath x 1 hour Plan: Chest pain, r/o ACS -BNP: 4360 -Trop #1: 0.126 -CXR: mild cardiomegaly noted, pulmonary venous congestion (f/u official read) -EKG: NSR @ 75 bpm, t wave inversions noted in V5/V6, no st segment elevations -s/p ASA 325, nitro SL in ambulance -serial MARLON panel -serial EKG -tele monitoring -f/u ECHO -Cardiology (Dr. Ramirez) consulted Hx of CAD s/p proximal LAD stent -resume home meds -ASA 81 mg PO daily -Plavix 75 mg PO daily CKD Hx of Renal Transplant -BUN/Cr: 55/3.0 -Nephrology (Dr. Boothe) on case -avoid nephrotoxic agents -renal u/s (05/04/18): normal appearance of RLQ renal transplant without hydronephrosis or nephropathy HTN -resume home meds -labetalol 300 mg PO BID -Norvasc 10 mg PO daily -Chlorthalidone 25 mg PO daily -held home lisinopril 2/2 elevated Cr HLD -Crestor 10 mg PO HS DM -Lantus 22 units HS mary -Novolog 10 units TIDAC -ISS -accuchecks achs -hypoglycemic protocol Hypothyroidism -resume home med -synthroid 50 mcg PO daily PPx, Diet, Disposition -DVT ppx: scds, lovenox 30 mg SC daily (renal dose) -GI ppx: protonix -Diet: Renal diet Case discussed with Dr. Karen Handley DO, PGY-1 <Robbie Jones - Last Filed: 05/14/18 06:23> Results - Vital Signs Recent Vital Signs: Last Vital Signs Temp 98 F 05/13/18 23:35 Pulse 71 05/14/18 01:00 Resp 20 05/13/18 23:35 BP 158/75 H 05/13/18 23:35 Pulse Ox 97 05/13/18 23:35 - Labs Result Diagrams: 05/13/18 03:11 05/13/18 03:11 Labs: Laboratory Results - last 24 hr 05/13/18 05/13/18 05/13/18 08:30 08:30 11:35 POC Glucose (mg/dL) 121 H Total Creatine Kinase 157 CK-MB (Mass) 1.26 Troponin I 0.1000 Triglycerides 110 D Cholesterol 120 LDL Cholesterol Direct 66 HDL Cholesterol 40 Free T4 0.84 TSH 3rd Generation 4.59 05/13/18 05/13/18 16:58 17:16 POC Glucose (mg/dL) 239 H Total Creatine Kinase 158 CK-MB (Mass) 1.49 Troponin I 0.0720 Triglycerides Cholesterol LDL Cholesterol Direct HDL Cholesterol Free T4 TSH 3rd Generation Assessment & Plan - Date & Time Date: 05/14/18 (I have seen and examined the patient. I agree with the findings and plan of care as documented by Dr Handley. Patient with chest pain. History of CAD. Continue home meds. ROMIx3 with EKG. 2D Echo. History of renal transplant. Renal insufficiency. Consult to Nephro. Monitor for acute changes.) Time: 06:22 Attending/Attestation - Attestation I have personally seen and examined this patient.: Yes I have fully participated in the care of the patient.: Yes I have reviewed all pertinent clinical information: Yes
[2018-05-13] MEDS ORDERED: Dextrose 50% SYRINGE Inj (50 ml) IV PRN (06:49)
[2018-05-13] MEDS ORDERED: Glucagon Recombinant 1 mg Inj IM PRN (06:49)
--- NOTE | 2018-05-13 07:41 | CP.PCM.PN ---
<NelaWilnern - Last Filed: 05/13/18 15:29> Subjective - Date & Time of Evaluation Date of Evaluation: 05/13/18 Time of Evaluation: 07:41 - Subjective Subjective: Medicine Progress Note: Patient seen and examined at bedside. Per nursing no acute events occurred overnight .Patient denies any fevers, chills, headaches, dizziness, abdominal pain, or any other complaints. Objective - Vital Signs/Intake and Output Vital Signs (last 24 hours): Temp Pulse Resp BP Pulse Ox 97.8 F 78 20 147/79 95 05/13/18 06:10 05/13/18 06:10 05/13/18 06:10 05/13/18 06:10 05/13/18 06:10 - Medications Medications: Current Medications Amlodipine Besylate (Norvasc) 10 mg PO DAILY [facility] Aspirin (Aspirin Chewable) 81 mg PO DAILY [facility] Chlorthalidone (Hygroton) 25 mg PO DAILY [facility] Clopidogrel Bisulfate (Plavix) 75 mg PO DAILY [facility] Dextrose (Dextrose 50% Inj) 0 ml IV STAT PRN; Protocol PRN Reason: Hypoglycemia Protocol Dextrose (Glutose 15) 0 gm PO ONCE PRN; Protocol PRN Reason: Hypoglycemia Protocol Enoxaparin Sodium (Lovenox) 30 mg SC DAILY [facility] Glucagon (Glucagen Diagnostic Kit) 0 mg IM STAT PRN; Protocol PRN Reason: Hypoglycemia Protocol Dextrose (Dextrose 5% In Water 1000 Ml) 1,000 mls @ 0 mls/hr IV .Q0M PRN; Protocol PRN Reason: Hypoglycemia Protocol Insulin Aspart (Novolog) 10 unit SC TIDAC [facility] Insulin Glargine (Lantus) 22 unit SC HS [facility] Insulin Human Regular (Novolin R) 0 unit SC ACHS [facility]; Protocol Labetalol HCl (Trandate) 300 mg PO BID [facility] Levothyroxine Sodium (Synthroid) 50 mcg PO DAILY@0630 [facility] Rosuvastatin Calcium (Crestor) 10 mg PO HS [facility] - Labs Labs: 05/13/18 03:11 05/13/18 03:11 - Head Exam Head Exam: ATRAUMATIC, NORMAL INSPECTION, NORMOCEPHALIC - Eye Exam Eye Exam: EOMI, Normal appearance, PERRL Pupil Exam: NORMAL ACCOMODATION, PERRL. absent: Irregular, Unequal - ENT Exam ENT Exam: Mucous Membranes Moist, Normal Oropharynx - Respiratory Exam Respiratory Exam: Clear to Ausculation Bilateral, NORMAL BREATHING PATTERN. absent: Prolonged Expiratory Phase, Respiratory Distress - Cardiovascular Exam Cardiovascular Exam: REGULAR RHYTHM, +S1, +S2. absent: Gallop, Rubs - GI/Abdominal Exam GI & Abdominal Exam: Soft, Normal Bowel Sounds. absent: Rigid, Hyperactive Bowel Sounds - Extremities Exam Extremities Exam: Full ROM, Normal Inspection. absent: Pedal Edema - Back Exam Back Exam: NORMAL INSPECTION. absent: CVA tenderness (R), paraspinal tenderness - Neurological Exam Neurological Exam: Alert, Awake, CN II-XII Intact, Oriented x3 - Psychiatric Exam Psychiatric exam: Normal Affect, Normal Mood. absent: Depressed - Skin Skin Exam: Dry, Intact, Normal Color Assessment and Plan - Assessment and Plan (Free Text) Plan: 62 year old male with pmhx of CAD s/p proximal LAD stent, HTN, HLD, DM, CKD s/p R renal transplant, hypothyroidism, L eye blindness presenting to ED with acute onset chest pain with associated shortness of breath x 1 hour Plan: Chest pain, r/o ACS -BNP: 4360 -Trop #1: 0.126, .100. Trending down. -CXR: mild cardiomegaly noted, pulmonary venous congestion (f/u official read) -EKG: NSR @ 75 bpm, t wave inversions noted in V5/V6, no st segment elevations -s/p ASA 325, nitro SL in ambulance -serial EKG -tele monitoring -f/u ECHO -Cardiology (Dr. 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 CKD Hx of Renal Transplant -BUN/Cr: 55/3.0 -Nephrology (Dr. Boothe) on case -avoid nephrotoxic agents -renal u/s (05/04/18): normal appearance of RLQ renal transplant without hydronephrosis or nephropathy -Continue Tacrolimus .5 mg PO BID -Continue Tacrolimus 1 mg PO BID HTN -resume home meds -labetalol 300 mg PO BID -Norvasc 10 mg PO daily -Chlorthalidone 25 mg PO daily -held home lisinopril 2/2 elevated Cr HLD -Crestor 10 mg PO HS DM -Lantus 22 units HS mary -Novolog 10 units TIDAC -ISS -accuchecks achs -hypoglycemic protocol Hypothyroidism -resume home med -synthroid 50 mcg PO daily PPx, Diet, Disposition -DVT ppx: scds, lovenox 30 mg SC daily (renal dose) -GI ppx: protonix -Diet: Renal diet Plan discussed with Attending Dr. Mclean. Russell Rondon, PGY-2 <Adal Mclean - Last Filed: 05/13/18 16:56> Objective - Vital Signs/Intake and Output Vital Signs (last 24 hours): Temp Pulse Resp BP Pulse Ox 98.3 F 77 20 157/77 H 95 05/13/18 07:00 05/13/18 16:30 05/13/18 07:00 05/13/18 07:00 05/13/18 07:00 - Medications Medications: Current Medications Amlodipine Besylate (Norvasc) 10 mg PO DAILY [facility] Last Admin: 05/13/18 09:38 Dose: 10 mg Aspirin (Aspirin Chewable) 81 mg PO DAILY [facility] Last Admin: 05/13/18 09:39 Dose: 81 mg Clopidogrel Bisulfate (Plavix) 75 mg PO DAILY [facility] Last Admin: 05/13/18 09:38 Dose: 75 mg Dextrose (Dextrose 50% Inj) 0 ml IV STAT PRN; Protocol PRN Reason: Hypoglycemia Protocol Dextrose (Glutose 15) 0 gm PO ONCE PRN; Protocol PRN Reason: Hypoglycemia Protocol Enoxaparin Sodium (Lovenox) 30 mg SC DAILY [facility] Last Admin: 05/13/18 09:39 Dose: 30 mg Glucagon (Glucagen Diagnostic Kit) 0 mg IM STAT PRN; Protocol PRN Reason: Hypoglycemia Protocol Dextrose (Dextrose 5% In Water 1000 Ml) 1,000 mls @ 0 mls/hr IV .Q0M PRN; Protocol PRN Reason: Hypoglycemia Protocol Insulin Aspart (Novolog) 10 unit SC TIDAC [facility] Last Admin: 05/13/18 15:41 Dose: Not Given Insulin Glargine (Lantus) 22 unit SC HS [facility] Insulin Human Regular (Novolin R) 0 unit SC ACHS [facility]; Protocol Last Admin: 05/13/18 15:38 Dose: Not Given Labetalol HCl (Normodyne) 300 mg PO BID [facility] Levothyroxine Sodium (Synthroid) 50 mcg PO DAILY@0630 [facility] Mycophenolate Sodium (Myfortic Dr) 360 mg PO BID [facility] Last Admin: 05/13/18 11:10 Dose: 360 mg Prednisone (Prednisone Tab) 5 mg PO DAILY [facility] Last Admin: 05/13/18 11:10 Dose: 5 mg Rosuvastatin Calcium (Crestor) 10 mg PO HS [facility] Tacrolimus (Prograf Cap) 0.5 mg PO Q12 [facility] Last Admin: 05/13/18 11:10 Dose: 0.5 mg Tacrolimus (Prograf Cap) 1 mg PO Q12 [facility] Last Admin: 05/13/18 11:10 Dose: 1 mg - Labs Labs: 05/13/18 03:11 05/13/18 03:11 Attending/Attestation - Attestation I have personally seen and examined this patient.: Yes I have fully participated in the care of the patient.: Yes I have reviewed all pertinent clinical information, including history, physical exam and plan: Yes Notes (Text): Seen and examined,denies chest pain,troponin is trending down we will follow with fitness management director possible discharge tomorrow nephrology consult appreciated
[2018-05-13] MEDS: (Novolog) Insulin Aspart, Recombinant 100 u/ml 10 ml vial SC SCH ×3 (07:53→16:30)
[2018-05-13] MEDS: (Novolin R) Insulin Human Regular 100 units/ml vial SC SCH ×4 (07:53→22:22)
[2018-05-13] MEDS: Enoxaparin 30 mg Syringe SC SCH (09:39)
--- NOTE | 2018-05-13 10:13 | CP.PCM.CON ---
History of Present Illness - History of Present Illness History of Present Illness: Patient is a 62 year old male with PMHx of CAD s/p proximal LAD stent, HTN, HLD, DM, ESRD s/p R renal transplant, hypothyroidism, L eye blindness presented to ED yesterday with acute onset chest pain with associated shortne ss of breath x 1 hour. Patient states he was walking back from the bathroom to bed when the pain started suddenly. He describes it as a sharp R sided chest pain that travels across his chest with no radiation down the arms or up his neck. He was given 325 mg of aspirin and nitroglycerin SL en route which helped alleviate the pain. He current denies any acute pain. No fevers/chills, headaches, dizziness, LOC, palpitations, active sob, cough, abdominal pain, n/v/d/c, dysuria, or changes in stool. 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 Currently on disability. Performs all ADLs independently. Review of Systems - Review of Systems Review of Systems: as per HPI, other than that 10 point ROS negative Past Patient History - Infectious Disease Hx of Infectious Diseases: None - Past Medical History & Family History Past Medical History?: Yes - Past Social History Smoking Status: Former Smoker - CARDIAC Hx Hypercholesterolemia: Yes Hx Hypertension: Yes - PULMONARY Hx Respiratory Disorders: No - NEUROLOGICAL Hx Neurological Disorder: No - HEENT Hx Blind: Yes (LEFT EYE DIABETIC RETINOPATHY) - RENAL Hx Chronic Kidney Disease: Yes Hx Dialysis: Yes Type of Dialysis Access: L av fistula Hx Renal Failure: Yes Other/Comment: Renal transplant 5 years ago,last hd tx 4 years 6 months ago - ENDOCRINE/METABOLIC Hx Diabetes Mellitus Type 2: Yes - HEMATOLOGICAL/ONCOLOGICAL Hx Blood Disorders: Yes Hx Anemia: Yes - INTEGUMENTARY Hx Dermatological Problems: No - MUSCULOSKELETAL/RHEUMATOLOGICAL Hx Musculoskeletal Disorders: No - GASTROINTESTINAL Hx Gastrointestinal Disorders: Yes Hx Gastritis: Yes - GENITOURINARY/GYNECOLOGICAL Hx Genitourinary Disorders: No - PSYCHIATRIC Hx Psychophysiologic Disorder: No - SURGICAL HISTORY Hx Surgeries: Yes Hx Coronary Stent: Yes (04/2017) Hx Kidney Transplant: Yes (04/01/13) Hx Vascular Surgery: Yes (LEFT ARM A/V FISTULA) - ANESTHESIA Hx Anesthesia: Yes Hx Anesthesia Reactions: No Hx Malignant Hyperthermia: No Has any member of the family had a problem w/ anesthesia?: No Meds Allergies/Adverse Reactions: Allergies Allergy/AdvReac Type Severity Reaction Status Date / Time No Known Allergies Allergy Verified 05/13/18 02:53 - Medications Medications: Current Medications Amlodipine Besylate (Norvasc) 10 mg PO DAILY [facility] Last Admin: 05/13/18 09:38 Dose: 10 mg Aspirin (Aspirin Chewable) 81 mg PO DAILY [facility] Last Admin: 05/13/18 09:39 Dose: 81 mg Chlorthalidone (Hygroton) 25 mg PO DAILY [facility] Clopidogrel Bisulfate (Plavix) 75 mg PO DAILY [facility] Last Admin: 05/13/18 09:38 Dose: 75 mg Dextrose (Dextrose 50% Inj) 0 ml IV STAT PRN; Protocol PRN Reason: Hypoglycemia Protocol Dextrose (Glutose 15) 0 gm PO ONCE PRN; Protocol PRN Reason: Hypoglycemia Protocol Enoxaparin Sodium (Lovenox) 30 mg SC DAILY [facility] Last Admin: 05/13/18 09:39 Dose: 30 mg Glucagon (Glucagen Diagnostic Kit) 0 mg IM STAT PRN; Protocol PRN Reason: Hypoglycemia Protocol Dextrose (Dextrose 5% In Water 1000 Ml) 1,000 mls @ 0 mls/hr IV .Q0M PRN; Protocol PRN Reason: Hypoglycemia Protocol Insulin Aspart (Novolog) 10 unit SC TIDAC [facility] Last Admin: 05/13/18 07:53 Dose: Not Given Insulin Glargine (Lantus) 22 unit SC HS [facility] Insulin Human Regular (Novolin R) 0 unit SC ACHS [facility]; Protocol Last Admin: 05/13/18 07:53 Dose: Not Given Labetalol HCl (Trandate) 300 mg PO BID [facility] Last Admin: 05/13/18 09:39 Dose: 300 mg Levothyroxine Sodium (Synthroid) 50 mcg PO DAILY@0630 [facility] Rosuvastatin Calcium (Crestor) 10 mg PO HS [facility] Physical Exam - Constitutional Appears: Well, Non-toxic - Head Exam Head Exam: ATRAUMATIC, NORMOCEPHALIC - Eye Exam Eye Exam: EOMI, PERRL Pupil Exam: NORMAL ACCOMODATION - ENT Exam ENT Exam: Mucous Membranes Moist - Neck Exam Neck exam: Positive for: Full Rom. Negative for: Lymphadenopathy - Respiratory Exam Respiratory Exam: Clear to Auscultation Bilateral, NORMAL BREATHING PATTERN. absent: Rhonchi, Wheezes - Cardiovascular Exam Cardiovascular Exam: REGULAR RHYTHM, +S1, +S2 - GI/Abdominal Exam GI & Abdominal Exam: Normal Bowel Sounds, Soft. absent: Tenderness Additional comments: RLQ renal allograft, non tender - Extremities Exam Extremities exam: Positive for: full ROM. Negative for: pedal edema - Neurological Exam Neurological exam: Alert, Oriented x3 - Psychiatric Exam Psychiatric exam: Normal Affect, Normal Mood Results - Vital Signs Recent Vital Signs: Last Vital Signs Temp 98.3 F 05/13/18 07:00 Pulse 76 05/13/18 07:00 Resp 20 05/13/18 07:00 BP 157/77 H 05/13/18 07:00 Pulse Ox 95 05/13/18 07:00 - Labs Result Diagrams: 05/13/18 03:11 05/13/18 03:11 Labs: Laboratory Results - last 24 hr 05/13/18 05/13/18 05/13/18 03:11 03:11 08:30 WBC 4.4 L RBC 3.32 L Hgb 10.4 L D Hct 31.3 L MCV 94.2 H MCH 31.5 H MCHC 33.4 RDW 13.8 Plt Count 231 MPV 9.5 Neut % (Auto) 74.0 Lymph % (Auto) 14.2 L [place] % (Auto) 8.8 Eos % (Auto) 2.5 Baso % (Auto) 0.5 Neut # (Auto) 3.2 Lymph # (Auto) 0.6 L [place] # (Auto) 0.4 Eos # (Auto) 0.1 Baso # (Auto) 0.0 Sodium 139 Potassium 4.2 Chloride 104 Carbon Dioxide 29 Anion Gap 10 BUN 55 H Creatinine 3.0 H Est GFR ( Amer) 26 Est GFR (Non-Af Amer) 21 Random Glucose 81 Calcium 10.2 Total Bilirubin 0.4 AST 45 ALT 41 Alkaline Phosphatase 43 Troponin I 0.1260 H* NT-Pro-B Natriuret Pep 4360 H Total Protein 6.6 Albumin 4.2 Globulin 2.4 Albumin/Globulin Ratio 1.7 Triglycerides 110 D Cholesterol 120 LDL Cholesterol Direct 66 HDL Cholesterol 40 Assessment & Plan (1) Chest pain Status: Acute (2) Acute kidney injury Status: Acute (3) Anxiety about health Status: Acute (4) CKD (chronic kidney disease) stage 3, GFR 30-59 ml/min Status: Acute (5) Kidney transplant recipient Status: Acute (6) CAD (coronary artery disease) Status: Chronic Priority: Medium (7) Diabetes Status: Chronic Priority: Medium (8) HLD (hyperlipidemia) Status: Chronic Priority: Medium (9) Hypertension Status: Chronic Priority: Medium - Assessment and Plan (Free Text) Plan: Cr slightly elevated from baseline- agree with holding lisinopril resume prograf and prednisone hold diuretics - no volume overload or CHF on exam monitor BS follow second set of troponins await cardiology evaluation
--- NOTE | 2018-05-13 10:49 | RAD ---
Date of service: 05/13/2018 HISTORY: cp COMPARISON: Comparison is made with 05/04/2018 TECHNIQUE: 1 view obtained. FINDINGS: LUNGS: No active pulmonary disease. PLEURA: No significant pleural effusion identified, no pneumothorax apparent. CARDIOVASCULAR: No aortic atherosclerotic calcification present. Normal cardiac size. No pulmonary vascular congestion. OSSEOUS STRUCTURES: No significant abnormalities. VISUALIZED UPPER ABDOMEN: Normal. OTHER FINDINGS: None. IMPRESSION: No evidence of acute pulmonary disease.
[2018-05-13 10:53] LABS: CK-MB 1.26 ng/mL (0.0-3.38); TROPONIN I 0.1 ng/mL (0.00-0.120)
[2018-05-13] MEDS: Mycophenolic Acid DR 360 mg Tab PO SCH ×2 (11:10→17:57)
[2018-05-13 17:32] LABS: CK-MB 1.49 ng/mL (0.0-3.38); TROPONIN I 0.072 ng/mL (0.00-0.120)
[2018-05-13] MEDS: Labetalol Hydrochloride 300 mg Tab PO SCH (17:58)
--- NOTE | 2018-05-13 18:40 | CP.PCM.CON ---
History of Present Illness - History of Present Illness History of Present Illness: Patient is a 62 year old male with past medical history of HTN, HLD, DM, CKD s/p R renal transplant, hypothyroidism, L eye blindness, complicated by CAD s/p proximal LAD stent, 2018 at [place], claims compliance with asa p lavix. presenting to ED with acute onset chest pain with associated shortness of breath x 1 hour. Patient states he was walking back from the bathroom to bed when the pain started suddenly. He describes it as a sharp R sided chest pain that travels across his chest with no radiation down the arms or up his neck. He was given 325 mg of aspirin and nitroglycerin SL en route which helped alleviate the pain.no furthe pain, no acute EKG changes, 1st TNI was minimally elevated, others are flat. No IA, consider EST as out pt with his home energy rater. Echo 06/01 nL LV EF 70% Review of Systems - Review of Systems Systems not reviewed;Unavailable: Unstable Vital Signs - Constitutional Constitutional: Anorexia, Weakness - EENT Eyes: absent: Change in Vision Ears: absent: Ear Discharge Nose/Mouth/Throat: absent: Epistaxis - Cardiovascular Cardiovascular: Chest Pain. absent: Acrocyanosis, Dyspnea on Exertion, Palpitations, Syncope - Respiratory Respiratory: absent: Cough, Dyspnea, Hemoptysis - Gastrointestinal Gastrointestinal: absent: Abdominal Pain, Diarrhea, Hematochezia, Vomiting - Genitourinary Genitourinary: absent: Difficulty Urinating Past Patient History - Infectious Disease Hx of Infectious Diseases: None - Past Medical History & Family History Past Medical History?: Yes - Past Social History Smoking Status: Never Smoked - CARDIAC Hx Hypercholesterolemia: Yes Hx Hypertension: Yes - PULMONARY Hx Respiratory Disorders: No - NEUROLOGICAL Hx Neurological Disorder: No - HEENT Hx Blind: Yes (LEFT EYE DIABETIC RETINOPATHY) - RENAL Hx Chronic Kidney Disease: Yes Hx Dialysis: Yes Type of Dialysis Access: L av fistula Hx Renal Failure: Yes Other/Comment: Renal transplant 5 years ago,last hd tx 4 years 6 months ago - ENDOCRINE/METABOLIC Hx Diabetes Mellitus Type 2: Yes - HEMATOLOGICAL/ONCOLOGICAL Hx Blood Disorders: Yes Hx Anemia: Yes - INTEGUMENTARY Hx Dermatological Problems: No - MUSCULOSKELETAL/RHEUMATOLOGICAL Hx Musculoskeletal Disorders: No - GASTROINTESTINAL Hx Gastrointestinal Disorders: Yes Hx Gastritis: Yes - GENITOURINARY/GYNECOLOGICAL Hx Genitourinary Disorders: No - PSYCHIATRIC Hx Psychophysiologic Disorder: No - SURGICAL HISTORY Hx Surgeries: Yes Hx Coronary Stent: Yes (04/2017) Hx Kidney Transplant: Yes (04/01/13) Hx Vascular Surgery: Yes (LEFT ARM A/V FISTULA) - ANESTHESIA Hx Anesthesia: Yes Hx Anesthesia Reactions: No Hx Malignant Hyperthermia: No Has any member of the family had a problem w/ anesthesia?: No Meds Home Medications: Home Medication List Medication Instructions Recorded Confirmed Type Aspirin [Ecotrin] 81 mg PO DAILY #30 tabec 05/14/18 Rx Clopidogrel Bisulfate [Plavix] 75 mg PO DAILY #30 tablet 05/14/18 Rx Insulin Aspart, Recombinant 10 unit IV TIDAC #1 vial 05/14/18 Rx [Novolog] Insulin Glargine, Recombina 22 unit SC HS #1 vial 05/14/18 Rx [Lantus] Labetalol Hydrochloride [Normodyne] 300 mg PO BID #60 tab 05/14/18 Rx Levothyroxine [Synthroid] 50 mcg PO DAILY #30 tab 05/14/18 Rx Mycophenolic Acid [Zoraida AVALOS] 360 mg PO BID #60 tablet.dr 05/14/18 Rx Rosuvastatin Calcium [Crestor] 5 mg PO DAILY #30 tab 05/14/18 Rx amLODIPine [Norvasc] 10 mg PO DAILY #30 tab 05/14/18 Rx predniSONE [predniSONE Tab] 5 mg PO DAILY #30 tab 05/14/18 Rx Allergies/Adverse Reactions: Allergies Allergy/AdvReac Type Severity Reaction Status Date / Time No Known Allergies Allergy Verified 05/13/18 02:53 - Medications Medications: Current Medications Amlodipine Besylate (Norvasc) 10 mg PO DAILY [facility] Last Admin: 05/13/18 09:38 Dose: 10 mg Aspirin (Aspirin Chewable) 81 mg PO DAILY [facility] Last Admin: 05/13/18 09:39 Dose: 81 mg Clopidogrel Bisulfate (Plavix) 75 mg PO DAILY [facility] Last Admin: 05/13/18 09:38 Dose: 75 mg Dextrose (Dextrose 50% Inj) 0 ml IV STAT PRN; Protocol PRN Reason: Hypoglycemia Protocol Dextrose (Glutose 15) 0 gm PO ONCE PRN; Protocol PRN Reason: Hypoglycemia Protocol Enoxaparin Sodium (Lovenox) 30 mg SC DAILY [facility] Last Admin: 05/13/18 09:39 Dose: 30 mg Glucagon (Glucagen Diagnostic Kit) 0 mg IM STAT PRN; Protocol PRN Reason: Hypoglycemia Protocol Dextrose (Dextrose 5% In Water 1000 Ml) 1,000 mls @ 0 mls/hr IV .Q0M PRN; Protocol PRN Reason: Hypoglycemia Protocol Insulin Aspart (Novolog) 10 unit SC TIDAC [facility] Last Admin: 05/13/18 15:41 Dose: Not Given Insulin Glargine (Lantus) 22 unit SC [facility] Insulin Human Regular (Novolin R) 0 unit SC ACHS [facility]; Protocol Last Admin: 05/13/18 17:56 Dose: 3 units Labetalol HCl (Normodyne) 300 mg PO BID [facility] Last Admin: 05/13/18 17:58 Dose: 300 mg Levothyroxine Sodium (Synthroid) 50 mcg PO DAILY@629 [facility] Mycophenolate Sodium (Myfortic Dr) 360 mg PO BID [facility] Last Admin: 05/13/18 17:57 Dose: 360 mg Prednisone (Prednisone Tab) 5 mg PO DAILY [facility] Last Admin: 05/13/18 11:10 Dose: 5 mg Rosuvastatin Calcium (Crestor) 10 mg PO [facility] Tacrolimus (Prograf Cap) 0.5 mg PO Q12 [facility] Last Admin: 05/13/18 11:10 Dose: 0.5 mg Tacrolimus (Prograf Cap) 1 mg PO Q12 [facility] Last Admin: 05/13/18 11:10 Dose: 1 mg Physical Exam - Constitutional Appears: Non-toxic - Head Exam Head Exam: ATRAUMATIC - Eye Exam Eye Exam: EOMI - ENT Exam ENT Exam: Mucous Membranes Moist - Neck Exam Neck exam: Negative for: Lymphadenopathy - Respiratory Exam Respiratory Exam: Clear to Auscultation Bilateral. absent: Prolonged Expiratory Phase, Rales - Cardiovascular Exam Cardiovascular Exam: REGULAR RHYTHM, Systolic Murmur - GI/Abdominal Exam GI & Abdominal Exam: Normal Bowel Sounds. absent: Organomegaly - Rectal Exam Rectal Exam: Deferred - Extremities Exam Extremities exam: Positive for: normal capillary refill. Negative for: calf tenderness - Neurological Exam Neurological exam: Alert, Oriented x3 - Psychiatric Exam Psychiatric exam: Normal Affect - Skin Skin Exam: Dry Results - Vital Signs Recent Vital Signs: Last Vital Signs Temp 98.2 F 05/13/18 15:00 Pulse 77 05/13/18 16:30 Resp 20 05/13/18 15:00 BP 157/78 H 05/13/18 15:00 Pulse Ox 96 05/13/18 15:00 - Labs Result Diagrams: 05/13/18 03:11 05/14/18 07:57 Labs: Laboratory Results - last 24 hr 05/13/18 05/13/18 05/13/18 03:11 03:11 08:30 WBC 4.4 L RBC 3.32 L Hgb 10.4 L D Hct 31.3 L MCV 94.2 H MCH 31.5 H MCHC 33.4 RDW 13.8 Plt Count 231 MPV 9.5 Neut % (Auto) 74.0 Lymph % (Auto) 14.2 L [place] % (Auto) 8.8 Eos % (Auto) 2.5 Baso % (Auto) 0.5 Neut # (Auto) 3.2 Lymph # (Auto) 0.6 L [place] # (Auto) 0.4 Eos # (Auto) 0.1 Baso # (Auto) 0.0 Sodium 139 Potassium 4.2 Chloride 104 Carbon Dioxide 29 Anion Gap 10 BUN 55 H Creatinine 3.0 H Est GFR ( Amer) 26 Est GFR (Non-Af Amer) 21 POC Glucose (mg/dL) Random Glucose 81 Calcium 10.2 Total Bilirubin 0.4 AST 45 ALT 41 Alkaline Phosphatase 43 Total Creatine Kinase 157 CK-MB (Mass) 1.26 Troponin I 0.1260 H* 0.1000 NT-Pro-B Natriuret Pep 4360 H Total Protein 6.6 Albumin 4.2 Globulin 2.4 Albumin/Globulin Ratio 1.7 Triglycerides 110 D Cholesterol 120 LDL Cholesterol Direct 66 HDL Cholesterol 40 Free T4 TSH 3rd Generation 4.59 05/13/18 05/13/18 05/13/18 08:30 11:35 16:58 WBC RBC Hgb Hct MCV MCH MCHC RDW Plt Count MPV Neut % (Auto) Lymph % (Auto) [place] % (Auto) Eos % (Auto) Baso % (Auto) Neut # (Auto) Lymph # (Auto) [place] # (Auto) Eos # (Auto) Baso # (Auto) Sodium Potassium Chloride Carbon Dioxide Anion Gap BUN Creatinine Est GFR ( Amer) Est GFR (Non-Af Amer) POC Glucose (mg/dL) 121 H Random Glucose Calcium Total Bilirubin AST ALT Alkaline Phosphatase Total Creatine Kinase 158 CK-MB (Mass) 1.49 Troponin I 0.0720 NT-Pro-B Natriuret Pep Total Protein Albumin Globulin Albumin/Globulin Ratio Triglycerides Cholesterol LDL Cholesterol Direct HDL Cholesterol Free T4 0.84 TSH 3rd Generation 05/13/18 17:16 WBC RBC Hgb Hct MCV MCH MCHC RDW Plt Count MPV Neut % (Auto) Lymph % (Auto) [place] % (Auto) Eos % (Auto) Baso % (Auto) Neut # (Auto) Lymph # (Auto) [place] # (Auto) Eos # (Auto) Baso # (Auto) Sodium Potassium Chloride Carbon Dioxide Anion Gap BUN Creatinine Est GFR ( Amer) Est GFR (Non-Af Amer) POC Glucose (mg/dL) 239 H Random Glucose Calcium Total Bilirubin AST ALT Alkaline Phosphatase Total Creatine Kinase CK-MB (Mass) Troponin I NT-Pro-B Natriuret Pep Total Protein Albumin Globulin Albumin/Globulin Ratio Triglycerides Cholesterol LDL Cholesterol Direct HDL Cholesterol Free T4 TSH 3rd Generation Assessment & Plan (1) Chest pain Status: Acute Comment: no IA (2) CAD (coronary artery disease) Status: Chronic Comment: post PCI (3) CKD (chronic kidney disease) stage 3, GFR 30-59 ml/min Status: Acute Comment: post transplant ok to stop lisinopril
[2018-05-13] MEDS ORDERED: (Lantus) Insulin Glargine, Recombinant SC SCH (22:00)
[2018-05-14 02:16] VITALS: O2SAT 97
[2018-05-14] MEDS ORDERED: Levothyroxine 50 MCG TAB PO SCH (06:30)
--- NOTE | 2018-05-14 07:32 | CP.PCM.PN ---
Subjective - Date & Time of Evaluation Date of Evaluation: 05/14/18 Time of Evaluation: 07:32 - Subjective Subjective: Medicine Progress Note: Patient seen and examined at bedside. Per nursing no acute events occurred overnight .Patient denies any fevers, chills, headaches, dizziness, abdominal pain, or any other complaints. Objective - Vital Signs/Intake and Output Vital Signs (last 24 hours): Temp Pulse Resp BP Pulse Ox 98 F 71 20 158/75 H 97 05/13/18 23:35 05/14/18 01:00 05/13/18 23:35 05/13/18 23:35 05/13/18 23:35 - Medications Medications: Current Medications Amlodipine Besylate (Norvasc) 10 mg PO DAILY [facility] Last Admin: 05/13/18 09:38 Dose: 10 mg Aspirin (Aspirin Chewable) 81 mg PO DAILY [facility] Last Admin: 05/13/18 09:39 Dose: 81 mg Clopidogrel Bisulfate (Plavix) 75 mg PO DAILY [facility] Last Admin: 05/13/18 09:38 Dose: 75 mg Dextrose (Dextrose 50% Inj) 0 ml IV STAT PRN; Protocol PRN Reason: Hypoglycemia Protocol Dextrose (Glutose 15) 0 gm PO ONCE PRN; Protocol PRN Reason: Hypoglycemia Protocol Enoxaparin Sodium (Lovenox) 30 mg SC DAILY [facility] Last Admin: 05/13/18 09:39 Dose: 30 mg Glucagon (Glucagen Diagnostic Kit) 0 mg IM STAT PRN; Protocol PRN Reason: Hypoglycemia Protocol Dextrose (Dextrose 5% In Water 1000 Ml) 1,000 mls @ 0 mls/hr IV .Q0M PRN; Protocol PRN Reason: Hypoglycemia Protocol Insulin Aspart (Novolog) 10 unit SC TIDAC [facility] Last Admin: 05/13/18 16:30 Dose: Not Given Insulin Glargine (Lantus) 22 unit SC HS [facility] Last Admin: 05/13/18 22:21 Dose: 22 units Insulin Human Regular (Novolin R) 0 unit SC ACHS [facility]; Protocol Last Admin: 05/13/18 22:22 Dose: Not Given Labetalol HCl (Normodyne) 300 mg PO BID [facility] Last Admin: 05/13/18 17:58 Dose: 300 mg Levothyroxine Sodium (Synthroid) 50 mcg PO DAILY@0630 [facility] Last Admin: 05/14/18 06:04 Dose: 50 mcg Mycophenolate Sodium (Myfortic Dr) 360 mg PO BID [facility] Last Admin: 05/13/18 17:57 Dose: 360 mg Prednisone (Prednisone Tab) 5 mg PO DAILY [facility] Last Admin: 05/13/18 11:10 Dose: 5 mg Rosuvastatin Calcium (Crestor) 10 mg PO HS [facility] Last Admin: 05/13/18 22:21 Dose: 10 mg Tacrolimus (Prograf Cap) 0.5 mg PO Q12 [facility] Last Admin: 05/13/18 22:20 Dose: 0.5 mg Tacrolimus (Prograf Cap) 1 mg PO Q12 [facility] Last Admin: 05/13/18 22:20 Dose: 1 mg - Labs Labs: 05/13/18 03:11 05/13/18 03:11 - Head Exam Head Exam: ATRAUMATIC, NORMAL INSPECTION - Eye Exam Eye Exam: EOMI, Normal appearance, PERRL Pupil Exam: NORMAL ACCOMODATION, PERRL. absent: Irregular, Unequal - ENT Exam ENT Exam: Mucous Membranes Moist, Normal Oropharynx - Respiratory Exam Respiratory Exam: Clear to Ausculation Bilateral, NORMAL BREATHING PATTERN. absent: Prolonged Expiratory Phase, Respiratory Distress - Cardiovascular Exam Cardiovascular Exam: REGULAR RHYTHM, RRR, +S1, +S2. absent: Rubs - GI/Abdominal Exam GI & Abdominal Exam: Soft, Normal Bowel Sounds. absent: Hyperactive Bowel Sounds - Extremities Exam Extremities Exam: Full ROM, Normal Inspection. absent: Pedal Edema - Back Exam Back Exam: NORMAL INSPECTION. absent: CVA tenderness (R), paraspinal tenderness - Neurological Exam Neurological Exam: Alert, Awake, CN II-XII Intact, Oriented x3 - Psychiatric Exam Psychiatric exam: Normal Affect, Normal Mood. absent: Depressed - Skin Skin Exam: Dry, Intact, Normal Color Assessment and Plan - Assessment and Plan (Free Text) Plan: 62 year old male with pmhx of CAD s/p proximal LAD stent, HTN, HLD, DM, CKD s/p R renal transplant, hypothyroidism, L eye blindness presenting to ED with acute onset chest pain with associated shortness of breath x 1 hour Plan: Chest pain, r/o ACS -BNP: 4360 -Trop #1: 0.126, .100. , .07 -CXR: mild cardiomegaly noted, pulmonary venous congestion (f/u official read) -EKG: NSR @ 75 bpm, t wave inversions noted in V5/V6, no st segment elevations -s/p ASA 325, nitro SL in ambulance -serial EKG -tele monitoring -f/u ECHO -Cardiology (Dr. Ramirez) consulted. :Consider outpatient Stress Test :No [place] Hx of CAD s/p proximal LAD stent -resume home meds -ASA 81 mg PO daily -Plavix 75 mg PO daily Leukopenia -Likely seconday to renal transplant. CKD Hx of Renal Transplant -BUN/Cr: 55/3.0 -Nephrology (Dr. Boothe) on case -avoid nephrotoxic agents -renal u/s (05/04/18): normal appearance of RLQ renal transplant without hydronephrosis or nephropathy -Continue Tacrolimus .5 mg PO BID -Continue Tacrolimus 1 mg PO BID HTN -resume home meds -labetalol 300 mg PO BID -Norvasc 10 mg PO daily -Chlorthalidone 25 mg PO daily -held home lisinopril 2/2 elevated Cr HLD -Crestor 10 mg PO HS DM -Lantus 22 units HS mary -Novolog 10 units TIDAC -ISS -accuchecks achs -hypoglycemic protocol Hypothyroidism -resume home med -synthroid 50 mcg PO daily PPx, Diet, Disposition -DVT ppx: scds, lovenox 30 mg SC daily (renal dose) -GI ppx: protonix -Diet: Renal diet Plan discussed with Attending Dr. Mclean. Russell Rondon, PGY-2
[2018-05-14] MEDS: (Novolin R) Insulin Human Regular 100 units/ml vial SC SCH ×2 (07:58→12:33)
[2018-05-14] MEDS: (Novolog) Insulin Aspart, Recombinant 100 u/ml 10 ml vial SC SCH ×2 (08:33→12:41)
[2018-05-14 08:39] LABS: CALCIUM 10.2 mg/dl (8.6-10.4)
[2018-05-14 09:13] VITALS: BP 167/77; RESP 18; TEMP 98.6
[2018-05-14] MEDS: Enoxaparin 30 mg Syringe SC SCH (09:27)
[2018-05-14] MEDS: Labetalol Hydrochloride 300 mg Tab PO SCH (09:28)
[2018-05-14] MEDS: Mycophenolic Acid DR 360 mg Tab PO SCH (09:28)
--- NOTE | 2018-05-14 11:29 | CP.PCM.PN ---
Subjective - Date & Time of Evaluation Date of Evaluation: 05/14/18 Time of Evaluation: 13:00 - Subjective Subjective: no further CP stable hemodynamically, no [place], doing well no further chest pain for stress test as an outpatient Objective - Vital Signs/Intake and Output Vital Signs (last 24 hours): Temp Pulse Resp BP Pulse Ox 98.6 F 67 18 167/77 H 97 05/14/18 07:30 05/14/18 08:00 05/14/18 07:30 05/14/18 07:30 05/14/18 07:30 - Medications Medications: Current Medications Amlodipine Besylate (Norvasc) 10 mg PO DAILY [facility] Last Admin: 05/14/18 09:28 Dose: 10 mg Aspirin (Aspirin Chewable) 81 mg PO DAILY [facility] Last Admin: 05/14/18 09:28 Dose: 81 mg Clopidogrel Bisulfate (Plavix) 75 mg PO DAILY [facility] Last Admin: 05/14/18 09:28 Dose: 75 mg Dextrose (Dextrose 50% Inj) 0 ml IV STAT PRN; Protocol PRN Reason: Hypoglycemia Protocol Dextrose (Glutose 15) 0 gm PO ONCE PRN; Protocol PRN Reason: Hypoglycemia Protocol Enoxaparin Sodium (Lovenox) 30 mg SC DAILY [facility] Last Admin: 05/14/18 09:27 Dose: 30 mg Glucagon (Glucagen Diagnostic Kit) 0 mg IM STAT PRN; Protocol PRN Reason: Hypoglycemia Protocol Dextrose (Dextrose 5% In Water 1000 Ml) 1,000 mls @ 0 mls/hr IV .Q0M PRN; Protocol PRN Reason: Hypoglycemia Protocol Insulin Aspart (Novolog) 10 unit SC TIDAC [facility] Last Admin: 05/14/18 08:33 Dose: 10 units Insulin Glargine (Lantus) 22 unit SC HS [facility] Last Admin: 05/13/18 22:21 Dose: 22 units Insulin Human Regular (Novolin R) 0 unit SC ACHS [facility]; Protocol Last Admin: 05/14/18 07:58 Dose: Not Given Labetalol HCl (Normodyne) 300 mg PO BID [facility] Last Admin: 05/14/18 09:28 Dose: 300 mg Levothyroxine Sodium (Synthroid) 50 mcg PO DAILY@0630 [facility] Last Admin: 05/14/18 06:04 Dose: 50 mcg Mycophenolate Sodium (Myfortic Dr) 360 mg PO BID [facility] Last Admin: 05/14/18 09:28 Dose: 360 mg Prednisone (Prednisone Tab) 5 mg PO DAILY [facility] Last Admin: 05/13/18 11:10 Dose: 5 mg Rosuvastatin Calcium (Crestor) 10 mg PO HS [facility] Last Admin: 05/13/18 22:21 Dose: 10 mg Tacrolimus (Prograf Cap) 0.5 mg PO Q12 [facility] Last Admin: 05/14/18 09:28 Dose: 0.5 mg Tacrolimus (Prograf Cap) 1 mg PO Q12 [facility] Last Admin: 05/14/18 09:28 Dose: 1 mg - Labs Labs: 05/13/18 03:11 05/14/18 07:57 - Constitutional Appears: Non-toxic - Head Exam Head Exam: ATRAUMATIC - Eye Exam Eye Exam: EOMI - ENT Exam ENT Exam: Mucous Membranes Moist - Neck Exam Neck Exam: absent: Lymphadenopathy, Thyromegaly - Respiratory Exam Respiratory Exam: absent: Chest Wall Tenderness, Rales - Cardiovascular Exam Cardiovascular Exam: REGULAR RHYTHM, Murmur - GI/Abdominal Exam GI & Abdominal Exam: Soft, Normal Bowel Sounds - Rectal Exam Rectal Exam: Deferred - Extremities Exam Extremities Exam: Full ROM, Normal Capillary Refill. absent: Calf Tenderness - Neurological Exam Neurological Exam: Alert, Oriented x3 - Psychiatric Exam Psychiatric exam: Normal Affect - Skin Skin Exam: Dry Assessment and Plan (1) Chest pain Status: Acute (2) CAD (coronary artery disease) Status: Chronic (3) CKD (chronic kidney disease) stage 3, GFR 30-59 ml/min Status: Acute
--- NOTE | 2018-05-14 12:20 | CP.PCM.DIS ---
<Russell Rondon - Last Filed: 05/14/18 15:58> Provider - Provider Date of Admission: 05/13/18 05:42 Attending physician: Robbie Jones MD Consults: 05/13/18 04:43 Cardiology Consult Routine Comment: Consulting Provider: Yesi Ramirez Consulting Physician: Yesi Ramirez Reason for Consult: chest pain 05/13/18 06:46 Nephrology Consult Routine Comment: Consulting Provider: Ashish Boothe Consulting Physician: Ashish Boothe Reason for Consult: ckd, renal transplant 05/13/18 08:28 Inpatient TRAVEL WRITER Core Measures Referral Routine Comment: Physician Instructions: Reason For Exam: chest pain ,sob Time Spent in preparation of Discharge (in minutes): 45 Hospital Course - Lab Results Lab Results: Most Recent Lab Values WBC 4.4 K/uL (4.8-10.8) L 05/13/18 03:11 RBC 3.32 Mil/uL (4.40-5.90) L 05/13/18 03:11 Hgb 10.4 g/dL (12.0-18.0) L D 05/13/18 03:11 Hct 31.3 % (35.0-51.0) L 05/13/18 03:11 MCV 94.2 fL (80.0-94.0) H 05/13/18 03:11 MCH 31.5 pg (27.0-31.0) H 05/13/18 03:11 MCHC 33.4 g/dL (33.0-37.0) 05/13/18 03:11 RDW 13.8 % (11.5-14.5) 05/13/18 03:11 Plt Count 231 K/uL (130-400) 05/13/18 03:11 MPV 9.5 fL (7.2-11.7) 05/13/18 03:11 Neut % (Auto) 74.0 % (50.0-75.0) 05/13/18 03:11 Lymph % (Auto) 14.2 % (20.0-40.0) L 05/13/18 03:11 [place] % (Auto) 8.8 % (0.0-10.0) 05/13/18 03:11 Eos % (Auto) 2.5 % (0.0-4.0) 05/13/18 03:11 Baso % (Auto) 0.5 % (0.0-2.0) 05/13/18 03:11 Neut # (Auto) 3.2 K/uL (1.8-7.0) 05/13/18 03:11 Lymph # (Auto) 0.6 K/uL (1.0-4.3) L 05/13/18 03:11 [place] # (Auto) 0.4 K/uL (0.0-0.8) 05/13/18 03:11 Eos # (Auto) 0.1 K/uL (0.0-0.7) 05/13/18 03:11 Baso # (Auto) 0.0 K/uL (0.0-0.2) 05/13/18 03:11 Sodium 137 mmol/L (132-148) 05/14/18 07:57 Potassium 4.0 mmol/L (3.6-5.2) 05/14/18 07:57 Chloride 102 mmol/L (98-107) 05/14/18 07:57 Carbon Dioxide 28 mmol/L (22-30) 05/14/18 07:57 Anion Gap 11 (10-20) 05/14/18 07:57 BUN 54 mg/dL (9-20) H 05/14/18 07:57 Creatinine 2.7 mg/dL (0.8-1.5) H 05/14/18 07:57 Est GFR ( Amer) 29 05/14/18 07:57 Est GFR (Non-Af Amer) 24 05/14/18 07:57 POC Glucose (mg/dL) 143 mg/dL (65-110) H 05/14/18 06:22 Random Glucose 129 mg/dL (75-110) H D 05/14/18 07:57 Hemoglobin A1c 6.6 % (4.2-6.5) H 05/13/18 08:30 Calcium 10.2 mg/dl (8.6-10.4) 05/14/18 07:57 Total Bilirubin 0.4 mg/dL (0.2-1.3) 05/13/18 03:11 AST 45 U/L (17-59) 05/13/18 03:11 ALT 41 U/L (21-72) 05/13/18 03:11 Alkaline Phosphatase 43 U/L (38-126) 05/13/18 03:11 Total Creatine Kinase 158 U/L (55-170) 05/13/18 16:58 CK-MB (Mass) 1.49 ng/mL (0.0-3.38) 05/13/18 16:58 Troponin I 0.0720 ng/mL (0.00-0.120) 05/13/18 16:58 NT-Pro-B Natriuret Pep 4360 pg/mL (0-900) H 05/13/18 03:11 Total Protein 6.6 g/dL (6.3-8.3) 05/13/18 03:11 Albumin 4.2 g/dL (3.5-5.0) 05/13/18 03:11 Globulin 2.4 gm/dL (2.2-3.9) 05/13/18 03:11 Albumin/Globulin Ratio 1.7 (1.0-2.1) 05/13/18 03:11 Triglycerides 110 mg/dL (0-149) D 05/13/18 08:30 Cholesterol 120 mg/dL (0-199) 05/13/18 08:30 LDL Cholesterol Direct 66 mg/dL (0-129) 05/13/18 08:30 HDL Cholesterol 40 mg/dL (30-70) 05/13/18 08:30 Free T4 0.84 ng/dL (0.78-2.19) 05/13/18 08:30 TSH 3rd Generation 4.59 mIU/L (0.46-4.68) 05/13/18 08:30 - Hospital Course Hospital Course: DX: Chest pain r/o acs Patient is a 62 year old male with past medical history of CAD s/p proximal LAD stent, HTN, HLD, DM, CKD s/p R renal transplant, hypothyroidism, L eye blindness presenting to ED with acute onset chest pain with associated shortness of breath x 1 hour. Patient states he was walking back from the bathroom to bed when the pain started suddenly. He describes it as a sharp R sided chest pain that travels across his chest with no radiation down the arms or up his neck. He was given 325 mg of aspirin and nitroglycerin SL en route which helped alleviate the pain. He current denies any acute pain. No fevers/chills, headaches, dizziness, LOC, palpitations, active sob, cough, abdominal pain, n/v/d/c, dysuria, or changes in stool. 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 Currently on disability. Performs all ADLs independently. PMD: Dr. Stephenson Manager Content: Dr. Flynn Strategic Planner: Dr. Boothe Hospital Course: Upon admission patient was found to have chest pain upon admission. Patient intially had an elevated troponin of .126. Patient reamining troponins were .1 and .07. Patient was seen by Cardiology Dr. Ramirez who ruled out an acute myocardial infarction. He recommended to consider a outpatient stress test. Patient also had an elevated Creatinine upon admission and patient's Lisinopril was held as a result. Patient also seen by Nephrology Dr. Jared Coelho and agreed. Imaging: Chext xray: no active disease Medications: 1.Norvasc 10mg PO DAILY, #30, No refills 2.Insulin Aspart 3.Lantus 22 units SC HS, #1 vial, No refills 4.Labetalol 300mg PO BID, #60, No refills 5.Levothyroxine 50mcg PO DAILY, #30, No refills 6.Myfortic 360mg PO BID, #60, No refills 7.prednisone 5mg PO DAILY, No refills 8.Crestor 5mg PO DAILY, No refills Instructions: 1.F/u with PMD within 5 days of discharge. 2.F/u with Nephrology within 5 days of discharge. 3.Hold Lisinopril at this time due to elevated Creatinine. Patient advised to visit Strategic Planner before restarting Lisinopril. 4.Return to hospital for any new or worsening symptoms. 5.Patient provided hand written instructions as the time of discharge. Plan discussed with Attending Dr. Caridad Rnodon, PGY-2 Discharge Exam - Head Exam Head Exam: ATRAUMATIC, NORMAL INSPECTION - Eye Exam Eye Exam: EOMI, Normal appearance, PERRL Pupil Exam: NORMAL ACCOMODATION, PERRL - ENT Exam ENT Exam: Mucous Membranes Moist, Normal Oropharynx - Respiratory Exam Respiratory Exam: Clear to PA & Lateral, NORMAL BREATHING PATTERN - Cardiovascular Exam Cardiovascular Exam: REGULAR RHYTHM, +S1, +S2 - GI/Abdominal Exam GI & Abdominal Exam: Normal Bowel Sounds, Unremarkable - Neurological Exam Neurological exam: Alert, CN II-XII Intact, Oriented x3 - Psychiatric Exam Psychiatric exam: Normal Affect, Normal Mood - Skin Skin Exam: Dry, Intact, Normal Color Discharge Plan - Discharge Medications Prescriptions: amLODIPine [Norvasc] 10 mg PO DAILY #30 tab Aspirin [Ecotrin] 81 mg PO DAILY #30 tabec Clopidogrel Bisulfate [Plavix] 75 mg PO DAILY #30 tablet Insulin Aspart, Recombinant [Novolog] 10 unit IV TIDAC #1 vial Insulin Glargine, Recombina [Lantus] 22 unit SC HS #1 vial Labetalol Hydrochloride [Normodyne] 300 mg PO BID #60 tab Levothyroxine [Synthroid] 50 mcg PO DAILY #30 tab Mycophenolic Acid [Zoraida AVALOS] 360 mg PO BID #60 tablet. predniSONE [predniSONE Tab] 5 mg PO DAILY #30 tab Rosuvastatin Calcium [Crestor] 5 mg PO DAILY #30 tab - Follow Up Plan Condition: STABLE Disposition: HOME/ ROUTINE Instructions: Heart Healthy Diet, Chest Pain, Amlodipine, Aspirin, Clopidogrel, Labetalol, Levothyroxine, Mycophenolate, Prednisone, Rosuvastatin, Insulin Aspart, Insulin Glargine Additional Instructions: Follow up PMD within 5 days of discharge Follow up Dr. Boothe within 5 days of discharge. Hold Lisinoprilat this time due to elevated creatinine Returned to Hospital for any new or worsening symptoms. <Adal Mclean - Last Filed: 05/15/18 18:42> Provider - Provider Date of Admission: 05/13/18 05:42 Attending physician: Robbie Jones MD Consults: 05/13/18 04:43 Cardiology Consult Routine Comment: Consulting Provider: Yesi Ramirez Consulting Physician: Yesi Ramirez Reason for Consult: chest pain 05/13/18 06:46 Nephrology Consult Routine Comment: Consulting Provider: Ashish Boothe Consulting Physician: Ashish Boothe Reason for Consult: ckd, renal transplant 05/13/18 08:28 Inpatient TRAVEL WRITER Core Measures Referral Routine Comment: Physician Instructions: Reason For Exam: chest pain ,sob Hospital Course - Lab Results Lab Results: Most Recent Lab Values WBC 4.4 K/uL (4.8-10.8) L 05/13/18 03:11 RBC 3.32 Mil/uL (4.40-5.90) L 05/13/18 03:11 Hgb 10.4 g/dL (12.0-18.0) L D 05/13/18 03:11 Hct 31.3 % (35.0-51.0) L 05/13/18 03:11 MCV 94.2 fL (80.0-94.0) H 05/13/18 03:11 MCH 31.5 pg (27.0-31.0) H 05/13/18 03:11 MCHC 33.4 g/dL (33.0-37.0) 05/13/18 03:11 RDW 13.8 % (11.5-14.5) 05/13/18 03:11 Plt Count 231 K/uL (130-400) 05/13/18 03:11 MPV 9.5 fL (7.2-11.7) 05/13/18 03:11 Neut % (Auto) 74.0 % (50.0-75.0) 05/13/18 03:11 Lymph % (Auto) 14.2 % (20.0-40.0) L 05/13/18 03:11 [place] % (Auto) 8.8 % (0.0-10.0) 05/13/18 03:11 Eos % (Auto) 2.5 % (0.0-4.0) 05/13/18 03:11 Baso % (Auto) 0.5 % (0.0-2.0) 05/13/18 03:11 Neut # (Auto) 3.2 K/uL (1.8-7.0) 05/13/18 03:11 Lymph # (Auto) 0.6 K/uL (1.0-4.3) L 05/13/18 03:11 [place] # (Auto) 0.4 K/uL (0.0-0.8) 05/13/18 03:11 Eos # (Auto) 0.1 K/uL (0.0-0.7) 05/13/18 03:11 Baso # (Auto) 0.0 K/uL (0.0-0.2) 05/13/18 03:11 Sodium 137 mmol/L (132-148) 05/14/18 07:57 Potassium 4.0 mmol/L (3.6-5.2) 05/14/18 07:57 Chloride 102 mmol/L (98-107) 05/14/18 07:57 Carbon Dioxide 28 mmol/L (22-30) 05/14/18 07:57 Anion Gap 11 (10-20) 05/14/18 07:57 BUN 54 mg/dL (9-20) H 05/14/18 07:57 Creatinine 2.7 mg/dL (0.8-1.5) H 05/14/18 07:57 Est GFR ( Amer) 29 05/14/18 07:57 Est GFR (Non-Af Amer) 24 05/14/18 07:57 POC Glucose (mg/dL) 108 mg/dL (65-110) 05/14/18 12:22 Random Glucose 129 mg/dL (75-110) H D 05/14/18 07:57 Hemoglobin A1c 6.6 % (4.2-6.5) H 05/13/18 08:30 Calcium 10.2 mg/dl (8.6-10.4) 05/14/18 07:57 Total Bilirubin 0.4 mg/dL (0.2-1.3) 05/13/18 03:11 AST 45 U/L (17-59) 05/13/18 03:11 ALT 41 U/L (21-72) 05/13/18 03:11 Alkaline Phosphatase 43 U/L (38-126) 05/13/18 03:11 Total Creatine Kinase 158 U/L (55-170) 05/13/18 16:58 CK-MB (Mass) 1.49 ng/mL (0.0-3.38) 05/13/18 16:58 Troponin I 0.0720 ng/mL (0.00-0.120) 05/13/18 16:58 NT-Pro-B Natriuret Pep 4360 pg/mL (0-900) H 05/13/18 03:11 Total Protein 6.6 g/dL (6.3-8.3) 05/13/18 03:11 Albumin 4.2 g/dL (3.5-5.0) 05/13/18 03:11 Globulin 2.4 gm/dL (2.2-3.9) 05/13/18 03:11 Albumin/Globulin Ratio 1.7 (1.0-2.1) 05/13/18 03:11 Triglycerides 110 mg/dL (0-149) D 05/13/18 08:30 Cholesterol 120 mg/dL (0-199) 05/13/18 08:30 LDL Cholesterol Direct 66 mg/dL (0-129) 05/13/18 08:30 HDL Cholesterol 40 mg/dL (30-70) 05/13/18 08:30 Free T4 0.84 ng/dL (0.78-2.19) 05/13/18 08:30 TSH 3rd Generation 4.59 mIU/L (0.46-4.68) 05/13/18 08:30 Attending/Attestation - Attestation I have personally seen and examined this patient.: Yes I have fully participated in the care of the patient.: Yes I have reviewed all pertinent clinical information, including history, physical exam and plan: Yes Notes (Text): seen and examined by me. patient has no chest pain. we will discharge the patient today. follow his bone drier operator and cad cam programmer within one week
[2018-05-14 14:07] VITALS: PULSE 76
== END 2018-05-14 15:00 | disposition home or self-care (01) | DRG 313 ==
LOC: C.ER 02:29 → C.6T 05:42
PROVIDERS: ADMIT Family Medicine; ATTEND Family Medicine
DX: R07.89 Other chest pain (principal); Z94.0 Kidney transplant status; N17.9 Acute kidney failure, unspecified; E78.5 Hyperlipidemia, unspecified; I25.10 Atherosclerotic heart disease of native coronary artery without angina pectoris; Z87.891 Personal history of nicotine dependence; Z95.5 Presence of coronary angioplasty implant and graft; E11.319 Type 2 diabetes mellitus with unspecified diabetic retinopathy without macular edema; H54.62 Unqualified visual loss, left eye, normal vision right eye; F41.9 Anxiety disorder, unspecified; I12.9 Hypertensive chronic kidney disease with stage 1 through stage 4 chronic kidney disease, or unspecified chronic kidney disease; E11.22 Type 2 diabetes mellitus with diabetic chronic kidney disease; N18.3 Chronic kidney disease, stage 3 (moderate); Z79.4 Long term (current) use of insulin